=== PATIENT | male | born 1970 | race Caucasian/White ===

== ENCOUNTER 2017-01-07 11:05 | Inpatient (IN) | payer OTHER ==
[~2017-01-07] VITALS: Ht 185.4 cm; Wt 80.3 kg
[~2017-01-07 11:05] MED LIST: LANT3I SC; LISI20TA11 PO; NOVO3I SC
[2017-01-07] MEDS ORDERED: PIPER-TAZO 3.375 GM IV (PMX) 100 ML IVPB STA (11:20)
[2017-01-07] MEDS ORDERED: SODIUM CHLORIDE 0.9% 1L BAG IV* STA (11:20)
[2017-01-07] MEDS ORDERED: VANCOMYCIN 1 GM (PMX) 250 ML IVPB ONE (11:30)
--- NOTE | 2017-01-07 11:36 | ERA ---
ER Documentation Chief Complaint Date/Time DATE: 01/07/17 TIME: 11:33 Chief Complaint DIABETIC R FOOT PAIN POSSIBLE INFECTION HPI 46-year-old diabetic male who presents with an infection to his right foot. The patient states that he recently visited his etymology professor Dr. Beltran. He states that he is scheduled for surgery on January 12 however he has noted worsening wounds to the dorsum and plantar surface of the foot with drainage of malodorous material. He also describes moderate pain that is throbbing, worse with walking. He also notes that his glucose values have been elevated over the past several days. ROS All systems reviewed and are negative except as per history of present illness. Medications Home Meds Reported Medications Insulin Glargine* (Lantus*) 100 Unit/Ml Soln, 0 SC QHS, #1 VIAL SLIDING SCALE 09/20/16 Insulin Aspart* (Novolog Insulin Pen*) 100 Unit/Ml Soln, 0 SC .SLIDING SCALE AC , EA AC MEALS 09/20/16 Lisinopril* (Lisinopril*) 20 Mg Tablet, 20 MG PO DAILY, #30 TAB 02/18/16 Allergies Allergies: Coded Allergies: No Known Allergy (Unverified , 09/20/16) PMhx/Soc History of Surgery: Yes (rt foot hammertoe, B EARDRUM RECONST) Anesthesia Reaction: No Hx Neurological Disorder: No Hx Respiratory Disorders: No Hx Cardiac Disorders: No (HTN) Hx Psychiatric Problems: No Hx Miscellaneous Medical Probl: No Hx Alcohol Use: Yes (SOCIALLY) Hx Substance Use: No Hx Tobacco Use: No FmHx Family History: diabetes Physical Exam Vitals Vital Signs Date Time Temp Pulse Resp B/P Pulse Ox O2 Delivery O2 Flow Rate FiO2 01/07/17 11:08 98.0 66 18 146/66 99 Physical Exam General: Well developed, well nourished, no acute distress Head: Normocephalic, atraumatic. Eyes: Pupils equally reactive, EOM intact ENT: Moist mucous membranes Neck: Supple, no lymphadenopathy Respiratory: Lungs clear bilaterally, no distress Cardiovascular: RRR, no murmurs, rubs, or gallops Abdominal: Soft, non-tender, non-distended, no peritoneal signs : Deferred MSK: Right foot with evidence of a open draining wound of malodorous material on the dorsum and plantar surface of the foot, swelling diffusely to the foot with 2+ dorsalis pedis pulses. No temperature deficit. Negative Homans sign. No crepitus. Neurologic: Alert and oriented, moving all extremities, normal speech, no focal weakness, no cerebellar signs Skin: As documented above Psych: Normal mood Result Diagram: 01/07/17 1140 01/07/17 1140 Results 24 hrs Laboratory Tests Test 01/07/17 11:40 White Blood Count 10.910^3/ul Red Blood Count 3.1310^6/ul Hemoglobin 7.6g/dl Hematocrit 25.5% Mean Corpuscular Volume 81.5fl Mean Corpuscular Hemoglobin 24.3pg Mean Corpuscular Hemoglobin Concent 29.8g/dl Red Cell Distribution Width 15.4% Platelet Count 12502^3/UL Mean Platelet Volume 10.8fl Neutrophils % 79.0% Lymphocytes % 12.1% Monocytes % 5.9% Eosinophils % 2.3% Basophils % 0.2% Nucleated Red Blood Cells % 0.0/100WBC Neutrophils # 8.710^3/ul Lymphocytes # 1.310^3/ul Monocytes # 0.610^3/ul Eosinophils # 0.310^3/ul Basophils # 0.010^3/ul Nucleated Red Blood Cells # 0.010^3/ul Prothrombin Time 13.4Sec Prothrombin Time Ratio 1.0 INR International Normalized Ratio 1.02 Activated Partial Thromboplast Time 32.3Sec Sodium Level 139mmol/L Potassium Level 4.5mmol/L Chloride Level 107mmol/L Carbon Dioxide Level 24mmol/L Anion Gap 13 Blood Urea Nitrogen 60mg/dl Creatinine 3.66mg/dl Glucose Level 218mg/dl Lactic Acid Level 0.8mmol/L Calcium Level 8.6mg/dl Total Bilirubin 0.0mg/dl Direct Bilirubin 0.00mg/dl Indirect Bilirubin 0.0mg/dl Aspartate Amino Transf (AST/SGOT) 27IU/L Alanine Aminotransferase (ALT/SGPT) 22IU/L Alkaline Phosphatase 97IU/L C-Reactive Protein Pending Total Protein 7.2g/dl Albumin 2.5g/dl Globulin 4.70g/dl Albumin/Globulin Ratio 0.53 Current Medications Medications (Trade) Dose Ordered Sig/Layton Route PRN Reason Start Time Stop Time Status Last Admin Dose Admin Sodium Chloride 2390 ml 2,390 ml BOLUS OVER 2 HOURS STAT IV* 01/07/17 11:20 01/07/17 11:26 DC 01/07/17 12:35 Vancomycin HCl 250 ml @ 125 mls/hr ONCE ONCE IVPB 01/07/17 11:30 01/07/17 13:29 Piperacillin Sod/ Tazobactam Sod (Zosyn 3.375gm/ 100 ml (Pmx)) 100 ml @ 200 mls/hr ONCE STAT IVPB 01/07/17 11:20 01/07/17 11:49 DC 01/07/17 12:15 Ondansetron HCl (Zofran Inj) 4 mg BRIDGE ORDER PRN IV NAUSEA AND/OR VOMITING 01/07/17 13:00 01/08/17 12:59 Acetaminophen (Tylenol Tab) 650 mg ER BRIDGE PRN PO MILD PAIN/FEVER 01/07/17 13:00 01/08/17 12:59 Procedures/MDM EKG, MONITORS, & DIAGNOSTIC IMAGING: EKG: I reviewed and interpreted a 12-lead EKG. Rhythm: Normal sinus rhythm Ectopy: None Intervals: No abnormalities ST segments: No elevations or depressions T waves: No contiguous inversions Chest x-ray: I reviewed and interpreted a 1 view of the chest Mediastinum: No enlargement Cardiac silhouette: No cardiomegaly Airspace: Clear lung trujillo bilaterally without evidence of pneumothorax Bones: No evidence of fracture X-ray right foot: Radiology read IMPRESSION: 1. Gas gangrene and cellulitis involving the distal right foot with dorsal dislocation of the proximal right third phalanx. 2. Osteomyelitis involving the distal diaphysis and distal end of the right fourth metatarsal bone with regional osteoporosis adjacent to the fourth metatarsal phalangeal joint. 3. Regional osteoporosis involving the proximal end of the proximal right third phalanx and distal end of the right third metatarsal bone. 4. Osteomyelitis involving the diaphysis and proximal portion of the proximal right third phalanx. RPTAT:AAJJ LAB INTERPRETATION: No significant leukocytosis, normal lactic acid, normal sodium. CRP pending. Glucose normal. Elevated creatinine MEDICAL DECISION MAKING: The patient presents with signs and symptoms consistent with an infected diabetic foot ulcer. The patient has active drainage from the wound. No evidence of necrotizing process. However the patient is at risk for pseudomonal infection. Empiric antibiotics in the form of vancomycin and Zosyn would be reasonable. The patient will benefit from inpatient hospitalization, podiatry consultation and possible early or surgery. The patient also has elevated glucose values, investigation to rule out DKA would be reasonable. Screening for sepsis was also initiated. ER COURSE: Patient given a 30 cc/kg bolus of normal saline. Blood cultures taken prior to antibiotics. The radiologist is concerned for possible gas gangrene. However, clinically this is not consistent with a necrotizing process. The patient only has a mild white count, no fever, normal sodium, normal lactic acid. The patient's creatinine is elevated at baseline. The patient's LRINEC score is indeterminant. I was able to speak to the patient's surgeon Dr. Beltran. Reviewed the case. I added clindamycin. Given that there is an open wound I believe that this is the likely etiology of the gas. However Dr. Beltran states that he will evaluate the patient today. Currently the patient is stable for medical surgical admission. I kept the patient and/or family informed of laboratory and diagnostic imaging results throughout the emergency room course. DISPOSITION PLAN: Medical surgical admission for management of diabetic foot ulcer CONSULTATION: Accepting care team and consultations: I discussed the current laboratory data, diagnostic imaging and emergency care provided. Admitting team: Dr. Chen Admitting team indication: Insurance directed Consulting services: Material Damage Adjuster Dr. Tao Beltran was paged Departure Diagnosis: Primary Impression: Diabetic foot ulcer Qualified Code: E11.621 - Diabetic ulcer of right midfoot associated with type 2 diabetes mellitus, unspecified ulcer stage Additional Impressions: Diabetic foot infection Chronic renal insufficiency Qualified Code: N18.9 - Chronic renal insufficiency, unspecified stage Anemia Qualified Code: D64.9 - Anemia, unspecified type Condition: Stable ABIEL HERNÁNDEZ MD Jan 07, 2017 11:36
[2017-01-07 12:02] LABS: ADD SCAN DIFF NO
[2017-01-07 12:10] LABS: BASOPHILS % 0.2 % (0.0-2.0); EOSINOPHILS # 0.3 10^3/ul (0.0-0.5); EOSINOPHILS % 2.3 % (0.0-7.0); HEMATOCRIT 25.5 % (42.0-52.0); HEMOGLOBIN 7.6 g/dl (14.0-18.0); LYMPHOCYTES # 1.3 10^3/ul (0.8-2.9); LYMPHOCYTES % 12.1 % (15.0-51.0); MEAN CORPUSCULAR HEMOGLOBIN 24.3 pg (29.0-33.0); MEAN CORPUSCULAR HGB CONC 29.8 g/dl (32.0-37.0); MEAN CORPUSCULAR VOLUME 81.5 fl (82.0-101.0); MEAN PLATELET VOLUME 10.8 fl (7.4-10.4); MONOCYTE # 0.6 10^3/ul (0.3-0.9); MONOCYTES % 5.9 % (0.0-11.0); NEUTROPHIL # 8.7 10^3/ul (1.6-7.5); PLATELET COUNT 312 10^3/UL (140-415); RED BLOOD COUNT 3.13 10^6/ul (4.70-6.10); RED CELL DISTRIBUTION WIDTH 15.4 % (11.5-14.5); WHITE BLOOD COUNT 10.9 10^3/ul (4.8-10.8)
--- NOTE | 2017-01-07 12:10 | RADRPT ---
PROCEDURE: Three-view left XR Foot. CLINICAL INDICATION: Evaluate foot ulcer for osteomyelitis. TECHNIQUE: AP, lateral and oblique views of the left foot was obtained. The images were reviewed on a PACS workstation. COMPARISON: Intraoperative radiographs right second and third toes is 03/16/2016 08:01 a.m. FINDINGS: There is subcutaneous emphysema with soft tissue swelling involving the proximal right third and fo urth proximal phalanges. There is a periostitis along the lateral surface of the proximal right thir d phalanx with lucency in the proximal intramedullary portion of the bone. There is dorsal dislocati on of the proximal right third phalanx. There is an arthrodesis with fusion of the right second PIP joint space. There is a screw embedded in the distal diaphysis of the right third metatarsal bone. The distal end of the third metatarsal bone is rarefied with surrounding subcutaneous emphysema. Th ere is osteolytic destruction involving the distal diaphysis metaphysis and distal end of the fourth metacarpal bone consistent with osteomyelitis. There are degenerative changes of the right first me tatarsal phalangeal joint. The tarsal bones and ankle mortise are normal. The distal tibia and fib felicia are normal. IMPRESSION: 1. Gas gangrene and cellulitis involving the distal right foot with dorsal dislocation of the proxi mal right third phalanx. 2. Osteomyelitis involving the distal diaphysis and distal end of the right fourth metatarsal bone with regional osteoporosis adjacent to the fourth metatarsal phalangeal joint. 3. Regional osteoporosis involving the proximal end of the proximal right third phalanx and distal e nd of the right third metatarsal bone. 4. Osteomyelitis involving the diaphysis and proximal portion of the proximal right third phalanx. RPTAT:AAJJ Physician Bob Date Time Electronically viewed and signed by Physician Bob on 01/07/2017 12:10 RENATA/
--- NOTE | 2017-01-07 12:10 | RADRPT ---
PROCEDURE: XR Chest. CLINICAL INDICATION: chest pain, right foot ulcer TECHNIQUE: Single frontal view of the chest was obtained COMPARISON: 06/24/15 FINDINGS: The heart and mediastinum are within normal limits. The lungs are clear. There is no pleural effusion or pneumothorax. RPTAT: AA IMPRESSION: No acute disease. .Gabriel Montgomery MD, MD Date Time Electronically viewed and signed by .Gabriel Montgomery MD, on 01/07/2017 12:09 .S/
[2017-01-07 12:13] LABS: ALBUMIN 2.5 g/dl (3.3-4.9)
[2017-01-07 12:14] LABS: INR 1.02; POTASSIUM 4.5 mmol/L (3.5-5.1); PROTIME 13.4 Sec (12.2-14.2)
[2017-01-07 12:16] LABS: CREATININE 3.66 mg/dl (0.61-1.24)
[2017-01-07 12:17] LABS: ALBUMIN/GLOBULIN RATIO 0.53; CALCIUM 8.6 mg/dl (8.4-10.2); TOTAL PROTEIN 7.2 g/dl (6.1-8.1)
[2017-01-07 12:21] LABS: PARTIAL THROMBOPLASTIN TIME 32.3 Sec (25.0-35.0)
[2017-01-07 12:39] LABS: C-REACTIVE PROTEIN 26.8 mg/dl (0.0-0.9)
[2017-01-07] MEDS ORDERED: ONDANSETRON 4 MG INJ IV PRN ×2 (13:00→14:00)
[2017-01-07] MEDS ORDERED: CLINDAMYCIN 600 MG/D5W (PMX) 50 ML IVPB SCH (13:00)
[2017-01-07] MEDS ORDERED: ACETAMINOPHEN 325 MG TAB PO PRN ×2 (13:00→14:00)
[2017-01-07] MEDS ORDERED: CLON0.2T5 PO (13:05)
[2017-01-07] MEDS ORDERED: METO200T4 PO (13:08)
[2017-01-07 13:33] VITALS: TEMP 97.5
[2017-01-07] MEDS ORDERED: HYDROCODONE/APAP (5/325) TAB PO PRN ×2 (14:00)
[2017-01-07] MEDS ORDERED: MAGNESIUM HYDROXIDE 30ML CUP PO PRN (14:00)
[2017-01-07] MEDS ORDERED: NACL 0.9% 3 ML SYG IV SCH (14:00)
[2017-01-07] MEDS ORDERED: morphine 2 MG INJ IV PRN (14:00)
[2017-01-07] MEDS ORDERED: BISACODYL 10 MG SUPP PR PRN (14:00)
[2017-01-07] MEDS: SOD CHLORIDE 0.9% 1,000 ML IV SCH ×2 (14:00→15:41)
[2017-01-07] MEDS ORDERED: DOCUSATE SODIUM 100 MG CAP PO PRN (14:00)
[2017-01-07] MEDS ORDERED: ACETAMINOPHEN 650 MG SUPP PR PRN (14:00)
[2017-01-07 14:28] VITALS: BP 149/70; RESP 20
[2017-01-07] MEDS ORDERED: VANCOMYCIN IV PER PHARMACY XX SCH (14:30)
[2017-01-07 15:08] VITALS: Ht 185.4 cm; Wt 80.3 kg
[2017-01-07 16:03] LABS: HEMATOCRIT 21.6 % (42.0-52.0)
--- NOTE | 2017-01-07 16:10 | CONS ---
DATE OF ADMISSION: 01/07/2017 DATE OF CONSULTATION: 01/07/2017 TYPE OF CONSULTATION: Infectious disease. REASON FOR CONSULTATION: Antibiotic management. HISTORY OF PRESENT ILLNESS: Thompson Marley is a 46-year-old male with a history of diab etes, who comes in now with diabetic right foot pain and infected right foot. His marine safety officer is Dr. Beto Beltran. He is scheduled for surgery on 01/12/2017; however, he has worsening wounds of the d orsum and plantar surface of the foot, with drainage of malodorous material. He has increasing pain , which is throbbing, worse when walking. His past problems include: 1. Adult onset diabetes mellitus. 2. Hypertension. 3. Right foot hammertoe. 4. Bilateral eardrum reconstruction. 5. He is a social drinker. PAST MEDICAL HISTORY: Operations as outlined. FAMILY HISTORY: Noncontributory. SOCIAL HISTORY: He does not smoke. He drinks occasionally. He does not abuse drugs. ALLERGIES: NONE TO PENICILLIN, SULFA OR FOODS. MEDICATIONS: Per chart. REVIEW OF SYSTEMS: As per HPI. PHYSICAL EXAMINATION: GENERAL: The patient is a well-developed, well-nourished male, who is alert, responsive, in no acut e distress. VITAL SIGNS: Stable. He is afebrile. SKIN: Without generalized rash. HEENT: Within normal limits. NECK: Supple. LYMPH NODES: None palpable. CHEST: Decreased breath sounds at the bases. HEART: Without murmur or gallop. ABDOMEN: Soft, nontender, without organosplenomegaly or masses. EXTREMITIES: Without cyanosis, clubbing or edema. His right foot has an open draining wound of mal odorous material on the dorsum and plantar surface of the foot. He has diffuse swelling of the foot with 2+ dorsalis pedis pulses. RECTAL AND GENITAL EXAM: Deferred. NEUROLOGIC EVALUATION: Decreased sensation in the distal extremities. ANCILLARY LABORATORY DATA: His white count is 10.9, H and H 7.6 and 25.5, platelet count of 312,000. The patient is significantly anemic. BUN and creatinine are 60/3.66, so he has significant renal impairment as well. We are going to start him on vancomycin and Zosyn, which he has been started on. His chest x-ray is unremarkable. X-ray of the foot: Gas gangrene and cellulitis involving the distal right foot, with dorsal dislocation of the proximal right 3rd. Osteomyelitis involving the distal diaphysis and the distal end of the right 4th metatarsal bone, with regional osteoporosis adjacent to the fourth meta tarsophalangeal joint, regional osteoporosis involving the proximal end of the right third phalanx a nd distally of the right 3rd metatarsal bone. Osteomyelitis involving the diathesis and proximal po rtion of the proximal right third phalanx. So the patient has significant osteomyelitis and may und ergo amputation of these areas. He will be seen by Dr. Beltran. I will dictate my findings to the ospitalist and to Dr. Beltran. Dictated By: JONNY GRANADOS MD, JD/HILDA Conf#: [id number] DID#: [id number]
[2017-01-07 16:14] LABS: TOTAL IRON BINDING CAPACITY 184 ug/dl (241-421)
[2017-01-07 16:15] LABS: HEMOGLOBIN 6.6 g/dl (14.0-18.0)
[2017-01-07] MEDS: PIPER-TAZO 3.375 GM IV (PMX) 100 ML IVPB SCH ×2 (16:29→21:38)
[2017-01-07 16:49] LABS: IRON < 10 ug/dl (35-150)
[2017-01-07] MEDS ORDERED: VANCOMYCIN 500MG/NS (PMX) 100 ML IVPB SCH (17:00)
[2017-01-07] MEDS: INSULIN ASPART [NOVOLOG] 3 ML PEN SC SCH ×2 (17:22→21:04)
[2017-01-07] MEDS ORDERED: PIPER-TAZO 3.375 GM IV (PMX) 100 ML IVPB SCH ×2 (18:00→22:00)
[2017-01-07 20:07] VITALS: BP 138/65; RESP 20
[2017-01-07] MEDS: HEPARIN 5,000 UNIT/0.5 ML VIAL SC SCH ×2 (20:09→20:47)
[2017-01-07 20:18] LABS: IRON 11 ug/dl (35-150)
[2017-01-07 20:27] LABS: TOTAL IRON BINDING CAPACITY 200 ug/dl (241-421)
[2017-01-07] MEDS ORDERED: EPOETIN ALFA (NESRD) 3,000 UNITS/ML VIAL SC ONE (20:30)
[2017-01-07 20:38] LABS: ADD UMIC YES; URINE BILIRUBIN (Dip) NEGATIVE (NEGATIVE); URINE BLOOD (Dip) 3+ (NEGATIVE); URINE COLOR LT. YELLOW (YELLOW); URINE KETONES (Dip) NEGATIVE (NEGATIVE); URINE LEUKOCYTE ESTERASE (Dip) NEGATIVE (NEGATIVE); URINE NITRITE (Dip) NEGATIVE (NEGATIVE); URINE TOTAL PROTEIN (Dip) 4+ (NEGATIVE); URINE UROBILINOGEN (Dip) 0.2 E.U./dL (0.1-1.0)
[2017-01-07] MEDS: METOPROLOL (XL) 100 MG TAB PO SCH (20:55)
[2017-01-07] MEDS: INSULIN GLARGINE [LANtus] 3 ML PEN SC SCH (21:06)
[2017-01-07 21:09] LABS: PROTEIN URINE > 200.0 mg/dl (0.0-9.9)
[2017-01-07 21:32] LABS: SQUAMOUS EPITHELIAL CELL,UR RARE; URIC ACID CRYSTALS,URINE MANY; URINE RBCS 0-2 /HPF (0)
[2017-01-08] MEDS: SOD CHLORIDE 0.9% 1,000 ML IV SCH ×3 (01:31→23:45)
--- NOTE | 2017-01-08 05:33 | CONS ---
DATE OF ADMISSION: 01/07/2017 DATE OF CONSULTATION: 01/07/2017 TYPE OF CONSULTATION: Nephrology. REASON FOR CONSULTATION: Acute kidney injury, chronic kidney disease. REQUESTING PHYSICIAN: Dr. Valentin Chen HISTORY OF PRESENT ILLNESS: This is a 46-year-old male with a past medical history of chronic kidne y disease, stage IIIB/IV, with an estimated EGFR around 33 mL per minute per patient. 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 The patient presents to [facility] for evaluation of right foot infection. The patient was recently seen by his flight operations specialist, Dr. Beltran, who scheduled him for 01/12/2017 surger y; however, the patient noted that his right foot and toes were now having worsening wound with felton dorous drainage. As a result, he was brought into the emergency room for evaluation. Upon arrival, the patient had x-ray of the foot which showed findings of osteomyelitis involving the distal diaph ysis, gas, gangrene, and cellulitis of the distal right foot, and dorsal dislocation of the proximal third phalanx. The patient in the emergency room was started on broad spectrum antibiotics, given IV fluids, and admitted to med/surg for continued evaluation. In terms of the patient's renal history, he has underlying CKD, stage IIIB/IV, as stated above. The patient sees a primary coach wirer and stated that in September he was told that his kidney functio n was around 33%. The patient, during this last 2 to 3 months, denied any recent antibiotic use. D enied any recent contrast exposure. Denied any recent rashes, frothy urine, hemoptysis, hemetemesis , hematochezia. PAST MEDICAL HISTORY: As stated above, history of CKD stage, III/IV, history of hypertension, diabe sandra. PAST SURGICAL HISTORY: History of right foot hammertoe. FAMILY HISTORY: No family history of kidney disease, heart disease. SOCIAL HISTORY: Does not drink, smoke, or do drugs. MEDICATIONS: Have been reviewed. ALLERGIES: NO KNOWN DRUG ALLERGIES. REVIEW OF SYSTEMS: A 14-point review of systems was conducted. Pertinent positives as stated in HP I, otherwise negative. PHYSICAL EXAMINATION: VITAL SIGNS: Blood pressure is 149/70, respirations 20, pulse 68, temperature 98.7. HEENT: Head is normocephalic. NECK: Supple. HEART: Regular rate. LUNGS: Show diminished breath sounds at base. ABDOMEN: Soft, nontender to palpation without rebound or guarding. EXTREMITIES: Negative for clubbing, cyanosis. Trace edema on the left leg. Right foot has noted d ressing with malodorous smell. NEUROLOGIC: No focal deficits. DERMATOLOGIC: No rashes. MUSCULOSKELETAL: No joint effusions. MEDICATIONS: Have been reviewed. LABORATORY DATA: Shows sodium 139, potassium 4.4, chloride 107, bicarbonate 24, BUN 60, creatinine 3.66 with a hemoglobin 6.6, hematocrit 21.7, ESR 140. IMAGING: The patient's chest x-ray shows no acute disease. Right foot x-ray as stated in HPI. ASSESSMENT AND PLAN: This is a 46-year-old male who presents with 1. Nonoliguric acute kidney injury on top of chronic kidney disease, stage IIIB/IV, with a previous estimated EGFR of 33 mL per minute per patient. Etiology of current JS may be multifactorial seco ndary to sepsis, hemodynamics, or JAGUAR inhibitor effect. The possibility of acute glomerulonephritis , vasculitis, or interstitial nephritis is less likely. However, a full workup will be done. I collin l plan to order UA with microanalysis. We will evaluate the urine under microscopy. We will check urine electrolytes. We will quantify the patient's proteinuria. We will also check a renal ultraso und to rule out obstruction, although suspicion is low. We would continue to treat underlying infec tion. We would recommend discontinue vancomycin if possible as the patient has had previous vancomy leni associated nephrotoxicity. Agree with IV hydration. Would otherwise continue supportive care, renally dose all meds, and avoid nephrotoxins. 2. Severe anemia. Etiology is unclear, possibly secondary to underlying CKD. Plan is to check an iron panel, check stool for occult blood. We will give Epogen. We will also monitor H and H levels , consider blood transfusion of 2 units of PRBC. 3. Mineral bone disorder. Monitor calcium and phosphorus levels. Check a PTH level. 4. Hypertension. We will continue to monitor blood pressures closely on IV fluids. Continue metop rolol. 5. Sepsis secondary to right foot osteomyelitis. Continue current antibiotic regimen. Follow up w [facility] podiatry. 6. Diabetes. Continue Accu-Cheks, insulin sliding scale. Thank you for this interesting consultation. It will be a pleasure to follow the patient with you t hroughout the hospital course. Dictated By: MICHELLE QUINTANILLA/HILDA Conf#: [id number] DID#: [id number]
[2017-01-08] MEDS: PIPER-TAZO 3.375 GM IV (PMX) 100 ML IVPB SCH ×3 (05:55→21:05)
[2017-01-08] MEDS: PANTOPRAZOLE 40 MG INJ IV SCH (05:55)
[2017-01-08 07:54] VITALS: BP 164/80; RESP 18
[2017-01-08] MEDS: METOPROLOL (XL) 100 MG TAB PO SCH ×2 (08:14→20:08)
[2017-01-08] MEDS: HEPARIN 5,000 UNIT/0.5 ML VIAL SC SCH ×2 (08:18→20:10)
[2017-01-08] MEDS: INSULIN ASPART [NOVOLOG] 3 ML PEN SC SCH ×4 (08:18→20:17)
--- NOTE | 2017-01-08 09:00 | HP ---
DATE OF ADMISSION: 01/07/2017 CHIEF COMPLAINT: Right foot ulcer with osteomyelitis. HISTORY OF PRESENT ILLNESS: This is a 46-year-old male with history of right foot ulcer for 8 month s' duration as well as diabetes, hypertension and chronic kidney disease who came to [facility] [place] after being sent by his refractory grinder operator due to worsening ulceration on his right foot with malodorous smell and drainage. According to the patient, he has had his right foot ulcer wound for 8 months. He was scheduled initially for surgical intervention on his right foot on 01/12/2017. He was seen by refractory grinder operator as an outpatient, after evaluation it was deemed that he needed to go to the hospital for further management. Upon further examination, he did have a foot x-ray on the right s melida that did show him to have gas gangrene and cellulitis involving the distal right foot with dorsa l dislocation of the proximal right third phalanx. There was an osteomyelitis involving the distal diaphysis and distal end of the right fourth metatarsal bone with regional osteoporosis adjacent to the fourth metatarsophalangeal joint. Also seen was regional osteoporosis involving the right proxi mal end of the third phalanx and distal end of the third right metatarsal bone and osteomyelitis inv olving the diaphysis and proximal portion of the proximal right end third phalanx. The patient also on laboratory work was seen with a slight leukocytosis with white count of 10.9. He was seen to be anemic with hemoglobin of 7.6, hematocrit of 25.5. He was also seen with some renal insufficiency with BUN of 16 and creatinine of 3.66. It is unknown whether patient does have some iron deficiency , but we will follow up on his level. Currently, the patient remains febrile. He denies any pain o n the right lower extremity. It is seen with malodorous smell and open ulcerative wound on both upp er portion of the third phalanx and on the bottom portion of the foot. We will evaluate him for the aforementioned issues. MEDICAL AND SURGICAL HISTORY 1. Reported chronic kidney disease stage III to stage IV. 2. Hypertension. 3. Diabetes. 4. History of right foot ulcer, diabetic for 8 months' duration. SOCIAL HISTORY: The patient denies any cigarette smoking, alcohol consumption or illicit drug use. ALLERGIES: NO KNOWN ALLERGIES. FAMILY HISTORY: Noncontributory. REVIEW OF SYSTEMS: A 12-point review of systems obtained and entirely negative except that mentione d in the history of present illness. HOME MEDICATIONS: 1. Clonidine 0.2 mg p.o. b.i.d. as needed for high blood pressure. 2. Toprol-XL 200 mg p.o. b.i.d. 3. Insulin NovoLog sliding scale (dose unknown). 4. Lantus subcutaneous at bedtime (dose unknown). PHYSICAL EXAMINATION VITAL SIGNS: Temperature is 97.5, pulse 67, respiratory rate 18, blood pressure 144/66 and pulse ox imetry is 99% on room air. GENERAL: This is a 46-year-old male who appears stated age, in no apparent distress noted at this t noe. EYES: Pupils equal, round and reactive to light. Anicteric sclerae. NECK: Supple, nontender, no JVD. CARDIOVASCULAR: S1, S2 auscultated, regular rate. PULMONARY: Clear to auscultation bilaterally. No wheezing or rhonchi. ABDOMEN: Soft, nontender, nondistended. EXTREMITIES: There is no obvious edema bilateral lower extremities. SKIN: There is seen ulcerative wound on right lower extremity with malodorous smell and serosanguin eous drainage. LABORATORY DATA: Sodium 139, potassium 4.5, BUN is 60, creatinine 3.66. WBC is 10.9, hemoglobin 7. 6, hematocrit 25.5, and platelets are 312. IMAGIN. Chest x-ray done on 01/07/2017 did show no acute disease. 2. Foot x-ray on the right side done on 01/07/2070 did show some evidence of gas gangrene and cellu litis involving the distal right foot with dorsal dislocation of the proximal right third phalanx an d osteomyelitis involving the distal diaphysis and distal end of the right fourth and metatarsal bon e with regional osteoporosis adjacent to the fourth metatarsophalangeal joint, as well as regional o steoporosis involving the proximal end of the proximal right third phalanx and distal end of the rig ht third metatarsal bone. Also seen osteomyelitis involving the diaphysis and proximal portion of t he proximal right third phalanx. IMPRESSION AND PLAN: 1. Right foot osteomyelitis with wound. Drug Safety Specialist consulted. Tentative plan for surgical interve ntion. We will follow up. Continue with analgesics for now. We will get ID consult for antibiotic regimen. 2. History of chronic kidney disease. The patient noted with renal insufficiency. We will get nep hrologist to follow. Monitor renal panel. Avoid nephrotoxic medications if possible. 3. Diabetes. Follow up on A1c. We will place patient on insulin regimen for now. We will adjust as needed. 4. History of essential hypertension. Will continue on antihypertensives as needed. ADMISSION PROCESS TIME: 40 minutes. Discussed plan of care with Dr. Chen. Dictated By: KRYSTA SERRATO [employer] SPECIAL AGENT for ELANA CHEN MD RR/NTS Conf#: [id number] DID#: [id number]
--- NOTE | 2017-01-08 09:13 | PN ---
DATE: 01/08/2017 SUBJECTIVE: The patient is stable. No acute events overnight. No fevers, chills, nausea, vomiting . OBJECTIVE: VITAL SIGNS: Blood pressure 164/80, respirations 18, pulse 67, temperature 98.8. HEENT: Head is normocephalic. NECK: Supple. HEART: Regular rate. LUNGS: Show diminished breath sounds at base. ABDOMEN: Soft, nontender to palpation. No rebound or guarding. EXTREMITIES: Negative for clubbing, cyanosis, no edema. DERMATOLOGIC: No rashes. MUSCULOSKELETAL: No joint effusions. NEUROLOGIC: No change in exam. MEDICATIONS: The patient's medications have been reviewed. LABORATORY DATA: From this morning is currently pending. The patient's urinalysis shows proteinuri a with greater than 2 grams per gram of creatinine. ASSESSMENT AND PLAN: 1. Nonoliguric acute kidney injury on top of chronic kidney disease, stage IIIB/IV, with previous e stimated EGFR of 33 mL per minute per patient. Etiology of current acute kidney injury is likely mu ltifactorial secondary to sepsis, hemodynamics, possible JAGUAR inhibitor effect. The patient's urinal ysis shows no significant hematuria or pyuria. The patient does, however, have what appears to be n ephrotic range proteinuria likely secondary to diabetic nephropathy. At this point, would continue current treatment plan, supportive care, renally dose all medications. We will speak with Infectiou s Disease about discontinuing vancomycin in the setting of chronic kidney disease. There is no imme diate need for renal replacement therapy at this time. Monitor closely. 2. Severe anemia, likely secondary to chronic kidney disease. The patient is status post Epogen. We will follow up the CBC panel today and would consider blood transfusion. 3. Mineral bone disorder. Continue to monitor calcium and phosphorus levels. No need for phosphat e binders. 4. Hypertension. Continue current blood pressure regimen. 5. Diabetes. Continue Accu-Cheks and sliding scale. 6. Sepsis secondary to right foot osteomyelitis. Continue current antibiotic regimen. Follow up c ullucy. Follow up with Infectious Disease. Dictated By: MICHELLE QUINTANILLA/NTS Conf#: [id number] DID#: [id number]
[2017-01-08 09:26] LABS: ADD SCAN DIFF NO
[2017-01-08 09:30] LABS: BASOPHILS % 0.3 % (0.0-2.0); EOSINOPHILS # 0.4 10^3/ul (0.0-0.5); HEMATOCRIT 29.4 % (42.0-52.0); HEMOGLOBIN 9.2 g/dl (14.0-18.0); LYMPHOCYTES # 1.3 10^3/ul (0.8-2.9); LYMPHOCYTES % 14.6 % (15.0-51.0); MEAN CORPUSCULAR HEMOGLOBIN 26.1 pg (29.0-33.0); MEAN CORPUSCULAR HGB CONC 31.3 g/dl (32.0-37.0); MEAN CORPUSCULAR VOLUME 83.5 fl (82.0-101.0); MONOCYTE # 0.6 10^3/ul (0.3-0.9); MONOCYTES % 6.8 % (0.0-11.0); NEUTROPHIL # 6.4 10^3/ul (1.6-7.5); PLATELET COUNT 291 10^3/UL (140-415); RED BLOOD COUNT 3.52 10^6/ul (4.70-6.10); RED CELL DISTRIBUTION WIDTH 15.2 % (11.5-14.5); WHITE BLOOD COUNT 8.7 10^3/ul (4.8-10.8)
[2017-01-08 10:02] LABS: ALBUMIN 2.4 g/dl (3.3-4.9)
--- NOTE | 2017-01-08 10:02 | CONS ---
Date/Time of Note Date/Time of Note DATE: 01/08/17 TIME: 09:52 Assessment/Plan Assessment/Plan Problems: (1) Open wound of right foot with complication (2) Diabetic foot infection Status: Acute (3) Diabetes mellitus with neurological manifestations, uncontrolled Status: Acute (4) Chronic renal insufficiency Status: Acute Qualifiers: Qualified Code: N18.9 - Chronic renal insufficiency, unspecified stage Additional Assessment/Plan Today I did bedside debridement and irrigation of the wound to bleeding tissue. Patient is going to have an MRI of the right foot today. He is on 3 antibiotics. His right third toe is dusky. Patient will be reevaluated after the MRI. He is going to require surgical management. I am not sure exactly which structures are involved at this point source infection is concerned. He does have previous hardware in place which complicates the situation. He is at high risk for limb loss. Patient will be followed in-house. Thank you very much for the consultation. Consultation Date/Type/Reason Admit Date/Time Jan 07, 2017 at 12:34 Date of Consultation: Jan 08, 2017 Type of Consultation: Foot and ankle surgery Reason for Consultation Evaluation of severe infection of the right foot Hx of Present Illness Thank you very much for involving me in the care of this patient. As you very well know this is a 46-year-old male patient with history of right foot ulceration for over 8 months who has been treated at the [facility]. He was scheduled for surgical management of his wound and his condition progressively got worse. The surgery was pending insurance approval and it took longer than expected. Patient has history of diabetes mellitus, hypertension, chronic kidney disease. Patient apparently developed significant amount of malodor and drainage and decided to come to the hospital. He was scheduled initially for surgery on January 12, 2017. Patient was found to have gas on x-rays. I was consulted for evaluation and treatment. Constitutional: no complaints Respiratory: no complaints Cardiovascular: no complaints Gastrointestinal: no complaints Genitourinary: no complaints Past Medical History As per history of present illness. Past Surgical History As per history of present illness. Social History As per history of present illness. Smoking Status: Never smoker Exam/Review of Systems Vital Signs Vitals Vital Signs Date Time Temp Pulse Resp B/P Pulse Ox O2 Delivery O2 Flow Rate FiO2 01/08/17 07:54 98.8 67 18 164/80 98 01/07/17 13:33 Room Air Intake and Output 01/07/17 01/07/17 01/08/17 15:00 23:00 07:00 Intake Total 1300 ml 560 ml Balance 1300 ml 560 ml Exam Patient is laying supine in bed. Dressing was removed from the right foot. There is foul odor present. Open wound dorsal right foot at the third metatarsophalangeal joint area. There is grayish yellow drainage noted. There is necrotic tissue present. There is a second wound present on the plantar aspect of the right foot corresponding to the same site as the dorsal wound. Again there is nieves necrotic tissue noted. There is no streaking and no erythema noted. Third toe is dusky distally. There is overall edema of the right lower extremity. There is no tenderness to examination palpation. Upon squeezing foot there is some purulent drainage that is pouring out. There is significant foul odor present. Dorsalis pedis and posterior tibial pulses weak. No open wound noted on the left foot. Sensation is decreased to sharp dull vibratory and temperature stimuli. X-ray was reviewed which shows gas in the third metatarsophalangeal joint. There is a screw present in the neck of the third metatarsal and an implant present in the second toe. Labs reviewed. Results Result Diagram: 01/08/17 0916 01/07/17 1140 Results 24 hrs Laboratory Tests Test 01/07/17 11:40 01/07/17 13:30 01/07/17 14:48 01/07/17 14:55 White Blood Count 10.9 #H Red Blood Count 3.13 #L Hemoglobin 7.6 L Hematocrit 25.5 L Mean Corpuscular Volume 81.5 L Mean Corpuscular Hemoglobin 24.3 L Mean Corpuscular Hemoglobin Concent 29.8 L Red Cell Distribution Width 15.4 H Platelet Count 312 Mean Platelet Volume 10.8 #H Neutrophils % 79.0 H Lymphocytes % 12.1 L Monocytes % 5.9 Eosinophils % 2.3 Basophils % 0.2 Nucleated Red Blood Cells % 0.0 Neutrophils # 8.7 H Lymphocytes # 1.3 Monocytes # 0.6 Eosinophils # 0.3 Basophils # 0.0 Nucleated Red Blood Cells # 0.0 Erythrocyte Sedimentation Rate 140.0 H Prothrombin Time 13.4 Prothrombin Time Ratio 1.0 INR International Normalized Ratio 1.02 Activated Partial Thromboplast Time 32.3 Sodium Level 139 Potassium Level 4.5 Chloride Level 107 Carbon Dioxide Level 24 Anion Gap 13 Blood Urea Nitrogen 60 H Creatinine 3.66 H Glucose Level 218 Lactic Acid Level 0.8 0.9 0.8 Calcium Level 8.6 Iron Level 11 L < 10 L Total Iron Binding Capacity 200 L 184 L Percent Iron Saturation 6 L Total Bilirubin 0.0 L Direct Bilirubin 0.00 Indirect Bilirubin 0.0 Aspartate Amino Transf (AST/SGOT) 27 Alanine Aminotransferase (ALT/SGPT) 22 Alkaline Phosphatase 97 C-Reactive Protein 26.8 H Total Protein 7.2 Albumin 2.5 L Globulin 4.70 H Albumin/Globulin Ratio 0.53 Bedside Glucose 186 Test 01/07/17 15:55 01/07/17 17:00 01/07/17 17:11 01/07/17 20:00 Hemoglobin 6.6 *L Hematocrit 21.6 L Ferritin 233.0 Urine Color LT. YELLOW Urine Clarity CLOUDY H Urine pH 5.5 Urine Specific [place] 1.025 Urine Ketones NEGATIVE Urine Nitrite NEGATIVE Urine Bilirubin NEGATIVE Urine Urobilinogen 0.2 E.U./dL Urine Leukocyte Esterase NEGATIVE Urine Microscopic RBC 0-2 Urine Microscopic WBC NONE SEEN Urine Squamous Epithelial Cells RARE Urine Transitional Epithelial Cells Urine Uric Acid Crystals MANY Urine Hemoglobin 3+ H Urine Random Creatinine 86.68 Urine Random Sodium 48 Urine Glucose 0.25% H Urine Total Protein > 200.0 H Bedside Glucose 164 Stool Occult Blood NEGATIVE Test 01/07/17 20:03 01/08/17 08:03 01/08/17 09:16 Bedside Glucose 250 H 169 White Blood Count 8.7 # Red Blood Count 3.52 L Hemoglobin 9.2 #L Hematocrit 29.4 #L Mean Corpuscular Volume 83.5 Mean Corpuscular Hemoglobin 26.1 L Mean Corpuscular Hemoglobin Concent 31.3 L Red Cell Distribution Width 15.2 H Platelet Count 291 Mean Platelet Volume 10.0 Neutrophils % 74.0 Lymphocytes % 14.6 L Monocytes % 6.8 Eosinophils % 4.0 Basophils % 0.3 Nucleated Red Blood Cells % 0.0 Neutrophils # 6.4 Lymphocytes # 1.3 Monocytes # 0.6 Eosinophils # 0.4 Basophils # 0.0 Nucleated Red Blood Cells # 0.0 Medications Medications Current Medications Clonidine (Catapres) 0.1 mg Q4H PRN PO sbp>160; Start 01/07/17 at 14:00 Metoprolol Succinate 200 mg 200 mg BID PO Last administered on 01/08/17 08:14; Admin Dose 200 MG; Start 01/07/17 at 21:00 Sodium Chloride (NS) 1,000 ml @ 80 mls/hr [id number] IV Last administered on 15:41; Admin Dose 80 MLS/HR; Start 01/07/17 at 14:00 Ondansetron HCl (Zofran Inj) 4 mg Q6H PRN IV NAUSEA AND/OR VOMITING; Start 01/07 at 14:00 Acetaminophen (Tylenol Tab) 650 mg Q6H PRN PO PAIN LEVEL 1-3 OR FEVER; Start at 14:00 Acetaminophen (Tylenol Supp) [address] PAIN LEVEL 1-3 OR FEVER; Start 01/07/17 at 14:00 Acetaminophen/ Hydrocodone Bitart ([place] (5/325)) 1 tab Q6H PRN PO MODERATE PAIN LEVEL 4-6; Start 01/07/17 at 14:00 Acetaminophen/ Hydrocodone Bitart ([place] (5/325)) 2 tab Q6H PRN PO SEVERE PAIN LEVEL 7-10; Start 01/07/17 at 14:00 Morphine Sulfate (morphine) 2 mg Q4H PRN IV SEVERE PAIN LEVEL 7-10; Start at 14:00 Docusate Sodium (Colace) 100 mg Q12H PRN PO CONSTIPATION; Start 01/07/17 at 14: 00 Magnesium Hydroxide (Milk Of Mag) 30 ml DAILY PRN PO CONSTIPATION; Start at 14:00 Bisacodyl (Dulcolax Supp) [address] CONSTIPATION; Start 01/07/17 at 14: 00 Pantoprazole (Protonix Iv) 40 mg DAILY@06 IV Last administered on 01/08/17 05: 55; Admin Dose 40 MG; Start 01/08/17 at 06:00 Heparin Sodium (Porcine) (Heparin (5000 Units/0.5 ml)) 5,000 unit Q12 SC Last administered on 01/08/17 08:18; Admin Dose 5,000 UNIT; Start 01/07/17 at 21:00 Insulin Glargine 10 unit 10 unit DAILY@20 SC Last administered on 01/07/17 21: 06; Admin Dose 10 UNIT; Start 01/07/17 at 20:00 Piperacillin Sod/ Tazobactam Sod 100 ml @ 200 mls/hr Q8 IVPB Last administered on 01/08/17 05:55; Admin Dose 200 MLS/HR; Start 01/07/17 at 16:30 Ferric Sodium Gluconate Complex/ Sodium Chloride (Ferrlecit/NS) 110 ml @ 110 mls/hr Q24H IVPB ; Start 01/08/17 at 09:00; Stop 01/12/17 at 09:59 CHINMAY ANNE DPM Jan 08, 2017 10:01
[2017-01-08 10:03] LABS: POTASSIUM 4.4 mmol/L (3.5-5.1)
[2017-01-08 10:05] LABS: ALBUMIN/GLOBULIN RATIO 0.58; BILIRUBIN,INDIRECT 0.2 mg/dl (0-1.1); BILIRUBIN,TOTAL 0.2 mg/dl (0.2-1.3); CREATININE 3.32 mg/dl (0.61-1.24); TOTAL PROTEIN 6.5 g/dl (6.1-8.1)
[2017-01-08 10:06] LABS: CALCIUM 7.8 mg/dl (8.4-10.2); CHOL/HDL RATIO 5.8 RATIO; MAGNESIUM 2.4 mg/dl (1.7-2.5); PHOSPHORUS 4.3 mg/dl (2.5-4.9)
[2017-01-08 10:23] LABS: T3 UPTAKE 53.3 % (23.5-40.5)
[2017-01-08 10:37] LABS: THYROID STIMULATING HORMONE 2.41 MIU/L (0.465-4.680)
[2017-01-08] MEDS: SOD FERRIC GLUC COMPLX 125 MG in SOD CHLORIDE 0.9% 100 ML IVPB SCH (11:09)
--- NOTE | 2017-01-08 11:20 | PN ---
Date/Time of Note Date/Time of Note DATE: 01/08/17 TIME: 11:16 Assessment/Plan VTE Prophylaxis VTE Prophylaxis Intervention: SCD's Lines/Catheters IV Catheter Type (from Nrs): Peripheral IV Assessment/Plan Chief Complaint/Hosp Course Assessment and plan 1. Right osteomyelitis with wound. Alternative Dispute Resolution Mediator is following. Patient is status post debridement of wound (January 08, 2017). Continue with wound care. Continue on antibiotics. Follow-up MRI of right foot. 2. History of CKD. Nephrology is following. Medications to be renally dosed. Monitor renal panel 3. Diabetes. Continue on insulin regimen. Awaiting A1c result 4. Anemia. Patient with iron deficiency. Status post PRBC with good response. Monitor for now. Provide with blood products as needed 5. Essential hypertension. Will continue on antihypertensives as needed Disposition and plan: Follow-up on MRI right foot. Continue antibiotics. Follow-up with podiatry for further possible intervention. Discussed plan of care with Dr. Chen Problems: Subjective 24 Hr Interval Summary Free Text/Dictation No reports of pain at this time. Still noted with malodorous right foot wound Exam/Review of Systems Vital Signs Vitals Vital Signs Date Time Temp Pulse Resp B/P Pulse Ox O2 Delivery O2 Flow Rate FiO2 01/08/17 07:54 98.8 67 18 164/80 98 01/07/17 13:33 Room Air Intake and Output 01/07/17 01/07/17 01/08/17 15:00 23:00 07:00 Intake Total 1300 ml 560 ml Balance 1300 ml 560 ml Exam General: No apparent distress noted at this time Eyes: Equal round. Neck: Supple nontender, no JVD Cardiac: S1-S2 auscultated Pulmonary: No wheezing or rhonchi GI: Soft nontender nondistended Extremities: Minimal edema right lower extremity Skin: Noted with malodorous ulcerative wound on right lower extremity Neurologic: AL O 4 Results Result Diagram: 01/08/17 0916 01/08/17 0905 Results 24 hrs Laboratory Tests Test 01/07/17 11:40 01/07/17 13:30 01/07/17 14:48 01/07/17 14:55 White Blood Count 10.9 #H Red Blood Count 3.13 #L Hemoglobin 7.6 L Hematocrit 25.5 L Mean Corpuscular Volume 81.5 L Mean Corpuscular Hemoglobin 24.3 L Mean Corpuscular Hemoglobin Concent 29.8 L Red Cell Distribution Width 15.4 H Platelet Count 312 Mean Platelet Volume 10.8 #H Neutrophils % 79.0 H Lymphocytes % 12.1 L Monocytes % 5.9 Eosinophils % 2.3 Basophils % 0.2 Nucleated Red Blood Cells % 0.0 Neutrophils # 8.7 H Lymphocytes # 1.3 Monocytes # 0.6 Eosinophils # 0.3 Basophils # 0.0 Nucleated Red Blood Cells # 0.0 Erythrocyte Sedimentation Rate 140.0 H Prothrombin Time 13.4 Prothrombin Time Ratio 1.0 INR International Normalized Ratio 1.02 Activated Partial Thromboplast Time 32.3 Sodium Level 139 Potassium Level 4.5 Chloride Level 107 Carbon Dioxide Level 24 Anion Gap 13 Blood Urea Nitrogen 60 H Creatinine 3.66 H Glucose Level 218 Lactic Acid Level 0.8 0.9 0.8 Calcium Level 8.6 Iron Level 11 L < 10 L Total Iron Binding Capacity 200 L 184 L Percent Iron Saturation 6 L Total Bilirubin 0.0 L Direct Bilirubin 0.00 Indirect Bilirubin 0.0 Aspartate Amino Transf (AST/SGOT) 27 Alanine Aminotransferase (ALT/SGPT) 22 Alkaline Phosphatase 97 C-Reactive Protein 26.8 H Total Protein 7.2 Albumin 2.5 L Globulin 4.70 H Albumin/Globulin Ratio 0.53 Bedside Glucose 186 Test 01/07/17 15:55 01/07/17 17:00 01/07/17 17:11 01/07/17 20:00 Hemoglobin 6.6 *L Hematocrit 21.6 L Ferritin 233.0 Urine Color LT. YELLOW Urine Clarity CLOUDY H Urine pH 5.5 Urine Specific [place] 1.025 Urine Ketones NEGATIVE Urine Nitrite NEGATIVE Urine Bilirubin NEGATIVE Urine Urobilinogen 0.2 E.U./dL Urine Leukocyte Esterase NEGATIVE Urine Microscopic RBC 0-2 Urine Microscopic WBC NONE SEEN Urine Squamous Epithelial Cells RARE Urine Transitional Epithelial Cells Urine Uric Acid Crystals MANY Urine Hemoglobin 3+ H Urine Random Creatinine 86.68 Urine Random Sodium 48 Urine Glucose 0.25% H Urine Total Protein > 200.0 H Bedside Glucose 164 Stool Occult Blood NEGATIVE Test 01/07/17 20:03 01/08/17 08:03 01/08/17 09:05 01/08/17 09:16 Bedside Glucose 250 H 169 Sodium Level 137 Potassium Level 4.4 Chloride Level 112 H Carbon Dioxide Level 23 Anion Gap 6 L Blood Urea Nitrogen 45 #H Creatinine 3.32 H Glucose Level 205 Calcium Level 7.8 L Phosphorus Level 4.3 Magnesium Level 2.4 Total Bilirubin 0.2 Direct Bilirubin 0.00 Indirect Bilirubin 0.2 Aspartate Amino Transf (AST/SGOT) 24 Alanine Aminotransferase (ALT/SGPT) 27 Alkaline Phosphatase 91 Total Protein 6.5 Albumin 2.4 L Globulin 4.10 H Albumin/Globulin Ratio 0.58 Triglycerides Level 138 Cholesterol Level 123 LDL Cholesterol, Calculated 74 HDL Cholesterol 21 L Cholesterol/HDL Ratio 5.8 Thyroid Stimulating Hormone (TSH) 2.410 Free Thyroxine Index 3.04 Thyroxine (T4) 5.7 Triiodothyronine (T3) Uptake 53.3 H White Blood Count 8.7 # Red Blood Count 3.52 L Hemoglobin 9.2 #L Hematocrit 29.4 #L Mean Corpuscular Volume 83.5 Mean Corpuscular Hemoglobin 26.1 L Mean Corpuscular Hemoglobin Concent 31.3 L Red Cell Distribution Width 15.2 H Platelet Count 291 Mean Platelet Volume 10.0 Neutrophils % 74.0 Lymphocytes % 14.6 L Monocytes % 6.8 Eosinophils % 4.0 Basophils % 0.3 Nucleated Red Blood Cells % 0.0 Neutrophils # 6.4 Lymphocytes # 1.3 Monocytes # 0.6 Eosinophils # 0.4 Basophils # 0.0 Nucleated Red Blood Cells # 0.0 Medications Medications Current Medications Clonidine (Catapres) 0.1 mg Q4H PRN PO sbp>160; Start 01/07/17 at 14:00 Metoprolol Succinate 200 mg 200 mg BID PO Last administered on 01/08/17 08:14; Admin Dose 200 MG; Start 01/07/17 at 21:00 Sodium Chloride (NS) 1,000 ml @ 80 mls/hr [id number] IV Last administered on 15:41; Admin Dose 80 MLS/HR; Start 01/07/17 at 14:00 Ondansetron HCl (Zofran Inj) 4 mg Q6H PRN IV NAUSEA AND/OR VOMITING; Start 01/07 at 14:00 Acetaminophen (Tylenol Tab) 650 mg Q6H PRN PO PAIN LEVEL 1-3 OR FEVER; Start at 14:00 Acetaminophen (Tylenol Supp) 650 mg Q6H PRN [place] PAIN LEVEL 1-3 OR FEVER; Start 01/07/17 at 14:00 Acetaminophen/ Hydrocodone Bitart ([place] (5/325)) 1 tab Q6H PRN PO MODERATE PAIN LEVEL 4-6; Start 01/07/17 at 14:00 Acetaminophen/ Hydrocodone Bitart ([place] (5/325)) 2 tab Q6H PRN PO SEVERE PAIN LEVEL 7-10; Start 01/07/17 at 14:00 Morphine Sulfate (morphine) 2 mg Q4H PRN IV SEVERE PAIN LEVEL 7-10; Start at 14:00 Docusate Sodium (Colace) 100 mg Q12H PRN PO CONSTIPATION; Start 01/07/17 at 14: 00 Magnesium Hydroxide (Milk Of Mag) 30 ml DAILY PRN PO CONSTIPATION; Start at 14:00 Bisacodyl (Dulcolax Supp) 10 mg DAILY PRN [place] CONSTIPATION; Start 01/07/17 at 14: 00 Pantoprazole (Protonix Iv) 40 mg DAILY@06 IV Last administered on 01/08/17 05: 55; Admin Dose 40 MG; Start 01/08/17 at 06:00 Heparin Sodium (Porcine) (Heparin (5000 Units/0.5 ml)) 5,000 unit Q12 SC Last administered on 01/08/17 08:18; Admin Dose 5,000 UNIT; Start 01/07/17 at 21:00 Insulin Glargine 10 unit 10 unit DAILY@20 SC Last administered on 01/07/17 21: 06; Admin Dose 10 UNIT; Start 01/07/17 at 20:00 Piperacillin Sod/ Tazobactam Sod 100 ml @ 200 mls/hr Q8 IVPB Last administered on 01/08/17 05:55; Admin Dose 200 MLS/HR; Start 01/07/17 at 16:30 Ferric Sodium Gluconate Complex/ Sodium Chloride (Ferrlecit/NS) 110 ml @ 110 mls/hr Q24H IVPB Last administered on 01/08/17 11:09; Admin Dose 110 MLS/HR; Start 01/08/17 at 09:00; Stop 01/12/17 at 09:59 KRYSTA SERRATO Jan 08, 2017 11:20
[2017-01-08] MEDS ORDERED: DAPTOMYCIN 480 MG in SOD CHLORIDE 0.9% 100 ML IVPB SCH (14:00)
--- NOTE | 2017-01-08 16:03 | RADRPT ---
PROCEDURE: MRI OF THE RIGHT FOOT CLINICAL INDICATION: Right foot pain and swelling, concern for osteomyelitis at third metatarsal TECHNIQUE: Multiple MRI images were obtained utilizing multiple sequences in multiple planes. Image s were interpreted on a high-resolution PACS system. COMPARISON: Radiographs of the right foot January 07, 2017 and MRI of the right foot dated March 24 015 FINDINGS: There is extensive soft tissue swelling and soft tissue gas centered at the third metatarsophalangea l joint with adjacent plantar and dorsal skin defects, compatible with a necrotizing infection. The re is dorsal dislocation at the second and third metatarsophalangeal joints. There is osteomyelitis involving the second metatarsal head and base of the second proximal phalanx, the third metatarsal head and base of the third proximal phalanx, and the fourth metatarsal head and base of the fourth p roximal phalanx along with some chronic remodelling of the fourth metatarsal head. There is a screw in the third metatarsal head and a metallic device and the second proximal phalanx. There is extensive forefoot soft tissue swelling and phlegmonous changes without discrete drainabl e fluid collection identified though there is no IV contrast on this study. There is intrinsic foot muscle edema and atrophy. There is no evidence of osteomyelitis of the firs t or the fifth digits or metatarsals. There is osseous fusion across the first interphalangeal join t which appears chronic. IMPRESSION: 1. Very extensive forefoot soft tissue swelling, soft tissue ulcerations, and gangrenous changes wit h soft tissue gas centered at the third metatarsophalangeal joint as above. 2. Dorsal dislocation at the second and third metatarsophalangeal joints with osteomyelitis of the s econd and third metatarsal heads and proximal phalanges. Osteomyelitis at the fourth metatarsal hea d and fourth proximal phalanx is also noted. 3. Nonspecific foot muscle edema may reflect diabetic microangiopathy versus an infectious myositis. RPTAT: UU .Ton Uriostegui MD, Date Time Electronically viewed and signed by .Ton Uriostegui MD, on 01/08/2017 16:02 .K/
--- NOTE | 2017-01-08 19:29 | PN ---
DATE: 01/08/2017 SUBJECTIVE: No acute changes. The patient is alert, lying comfortably in bed. Denies pain, looks comfortable, no fevers. LABORATORY DATA: WBC today 4.7, H and H 9.7 and 29.4, platelets 291, neutrophils 74, no bands. BUN 45, creatinine 3.32. MICROBIOLOGY: Blood cultures negative. Urine culture pending. DIAGNOSTICS: MRI of the foot revealed osteomyelitis of the second and third metatarsal heads and pr oximal phalanges as well as forced metatarsal head on forced proximal phalanx. ANTIMICROBIALS: The patient is on daptomycin and Zosyn, status post vancomycin. PHYSICAL EXAMINATION: GENERAL: Well-nourished, well-developed, middle-aged man who is alert, in no distress. HEENT: Head atraumatic, normocephalic. Sclerae anicteric. Buccal mucosa pink. NECK: Supple. CHEST: Rise symmetrical. Breath sounds clear. HEART: S1, S2. ABDOMEN: Soft. Bowel tones present. EXTREMITIES: With right foot dressing intact. ASSESSMENT: 1. Right foot cellulitis with osteomyelitis, status post incision and drainage. 2. Acute kidney injury on top of chronic kidney disease. 3. Severe anemia, status post transfusion. 4. Diabetes with diabetic neuropathy. 5. Systemic inflammatory response syndrome. PLAN: The patient remains stable. Continue present care, antibiotics. Follow wound cultures, foll ow recommendations of specialists. Dictated By: JESUS PAYAN INTERNATIONAL MARKETING SPECIALIST for JONNY GRANADOS MD NI/NTS Conf#: [id number] DID#: [id number] CC: ELANA MARK MD;*EndCC*
[2017-01-08 20:00] VITALS: BP 169/72; RESP 20
[2017-01-08] MEDS: INSULIN GLARGINE [LANtus] 3 ML PEN SC SCH (20:17)
[2017-01-09] MEDS: PANTOPRAZOLE 40 MG INJ IV SCH (05:49)
[2017-01-09] MEDS: PIPER-TAZO 3.375 GM IV (PMX) 100 ML IVPB SCH (05:49)
[2017-01-09 06:03] LABS: ADD SCAN DIFF NO
[2017-01-09 06:06] LABS: BASOPHILS % 0.5 % (0.0-2.0); EOSINOPHILS # 0.5 10^3/ul (0.0-0.5); EOSINOPHILS % 5.9 % (0.0-7.0); HEMATOCRIT 25.5 % (42.0-52.0); LYMPHOCYTES # 1.8 10^3/ul (0.8-2.9); LYMPHOCYTES % 22.9 % (15.0-51.0); MEAN CORPUSCULAR HEMOGLOBIN 26.1 pg (29.0-33.0); MEAN CORPUSCULAR HGB CONC 31.4 g/dl (32.0-37.0); MEAN CORPUSCULAR VOLUME 83.3 fl (82.0-101.0); MEAN PLATELET VOLUME 10.1 fl (7.4-10.4); MONOCYTE # 0.7 10^3/ul (0.3-0.9); MONOCYTES % 8.6 % (0.0-11.0); NEUTROPHIL # 4.9 10^3/ul (1.6-7.5); NEUTROPHILS % 61.8 % (39.0-77.0); PLATELET COUNT 257 10^3/UL (140-415); RED BLOOD COUNT 3.06 10^6/ul (4.70-6.10); RED CELL DISTRIBUTION WIDTH 15.4 % (11.5-14.5); WHITE BLOOD COUNT 7.9 10^3/ul (4.8-10.8)
[2017-01-09 06:31] LABS: POTASSIUM 4.2 mmol/L (3.5-5.1)
[2017-01-09 06:34] LABS: CREATININE 3.13 mg/dl (0.61-1.24)
[2017-01-09 06:35] LABS: CALCIUM 7.5 mg/dl (8.4-10.2); MAGNESIUM 2.2 mg/dl (1.7-2.5)
[2017-01-09] MEDS ORDERED: DEXTROSE 50% 50 ML SYRINGE IV PRN ×2 (07:00)
[2017-01-09] MEDS ORDERED: GLUCOSE GEL 15 GRAM TUBE PO PRN ×2 (07:00)
[2017-01-09] MEDS ORDERED: GLUCAGON 1 MG INJ IM PRN (07:00)
[2017-01-09] MEDS ORDERED: GLUCOSE GEL 15 GRAM TUBE BUCCAL PRN (07:00)
[2017-01-09 07:43] VITALS: BP 116/59; RESP 18
[2017-01-09 07:56] VITALS: BP 172/74; RESP 20
[2017-01-09] MEDS: INSULIN ASPART [NOVOLOG] 3 ML PEN SC SCH ×4 (08:07→21:01)
[2017-01-09] MEDS: METOPROLOL (XL) 100 MG TAB PO SCH ×2 (08:09→20:13)
[2017-01-09] MEDS: HEPARIN 5,000 UNIT/0.5 ML VIAL SC SCH ×2 (08:11→20:21)
[2017-01-09] MEDS: SOD FERRIC GLUC COMPLX 125 MG in SOD CHLORIDE 0.9% 100 ML IVPB SCH (09:28)
[2017-01-09 10:00] VITALS: BP 148/72; PULSE 66; PULSE 68
--- NOTE | 2017-01-09 10:50 | PN ---
DATE: 01/09/2017 SUBJECTIVE: The patient is stable, no acute events overnight. No fevers, chills, nausea/vomiting. OBJECTIVE: VITAL SIGNS: Blood pressure 172/74, respirations 20, pulse 67, temperature 98.3. HEENT: Head is normocephalic. NECK: Supple. HEART: Regular rate. LUNGS: Show diminished breath sounds at base. ABDOMEN: Soft, nontender to palpation without rebound or guarding. EXTREMITIES: Negative for clubbing, cyanosis. Trace edema. The patient's right foot is in a dress ing clean, dry, intact. DERMATOLOGIC: No rashes. MUSCULOSKELETAL: No joint effusions. NEUROLOGIC: No change in exam. MEDICATIONS: The patient's medications have been reviewed. LABORATORY DATA: Shows sodium 142, potassium 4.2, chloride 115, bicarbonate 20, BUN 39, creatinine 3.13. White count 7.9, hemoglobin 8.0, hematocrit 25.5, platelet count is 257. ASSESSMENT AND PLAN: 1. Nonoliguric acute kidney injury on top of chronic kidney disease stage IIIB/IV, with previous es timated GFR around 30 mL per minute. The patient's current acute kidney injury is likely multifacto rial secondary to sepsis, hemodynamics. The patient's urinalysis shows no significant hematuria or pyuria. The patient does have nephrotic range of proteinuria, likely due to underlying diabetic nep hropathy. At this point, continue current treatment plan, supportive care, renally dose all meds, c ontinue current antibiotic regimen. We will titrate off IV fluids. 2. Chronic kidney disease, stage IIIB/IV with nephrotic range proteinuria, likely due to diabetic n ephropathy. The patient is currently in acute kidney injury as stated above, would continue current treatment plan. Will continue disease, factor modification, good glycemic and blood pressure contr ol. 3. Mineral bone disorder. Continue to monitor calcium and phosphorus levels. 4. Metabolic acidosis secondary to acute kidney injury, chronic kidney disease, IV fluids, continue to monitor. 5. Diabetes, continue Accu-Cheks and sliding scale. 6. Sepsis secondary to right foot osteomyelitis. Continue current antibiotic regimen. Dictated By: MICHELLE QUINTANILLA/NTS Conf#: [id number] DID#: [id number]
--- NOTE | 2017-01-09 11:27 | PN ---
Date/Time of Note Date/Time of Note DATE: 01/09/17 TIME: 11:24 Assessment/Plan VTE Prophylaxis VTE Prophylaxis Intervention: heparin Lines/Catheters IV Catheter Type (from Nrsg): Peripheral IV Assessment/Plan Assessment/Plan 1. Sepsis secondary to Right foot osteomyelitis 2. Nonoliguric acute kidney injury on top of chronic kidney disease stage III/IV 3. Chronic kidney disease, stage III/IV with nephrotic range proteinuria, likely due to diabetic nephropathy. 4. Diabetes type II, poorly controlled plan: IVF NS at 20 cc/hr IV abx as per ID heparin for DVT prophylaxis pt still needs better pain control, improvement in infection and ID plan Subjective 24 Hr Interval Summary Free Text/Dictation no acute events, BP stable, afebrile Exam/Review of Systems Vital Signs Vitals Vital Signs Date Time Temp Pulse Resp B/P Pulse Ox O2 Delivery O2 Flow Rate FiO2 01/09/17 07:56 98.3 67 20 172/74 97 01/07/17 13:33 Room Air Intake and Output 01/08/17 01/08/17 01/09/17 15:00 23:00 07:00 Intake Total 910 ml 1880 ml 940 ml Output Total 1400 ml Balance 910 ml 480 ml 940 ml Exam HEENT: Head atraumatic, normocephalic. Sclerae anicteric. Buccal mucosa pink. NECK: Supple. CHEST: Rise symmetrical. Breath sounds clear. HEART: S1, S2. ABDOMEN: Soft. Bowel tones present. EXTREMITIES: With right foot dressing intact. Results Result Diagram: 01/09/17 0520 01/09/17 0520 Results 24 hrs Laboratory Tests Test 01/08/17 11:54 01/08/17 17:15 01/08/17 20:12 01/09/17 02:28 Bedside Glucose 214 193 205 137 Test 01/09/17 05:20 01/09/17 08:05 White Blood Count 7.9 Red Blood Count 3.06 L Hemoglobin 8.0 L Hematocrit 25.5 L Mean Corpuscular Volume 83.3 Mean Corpuscular Hemoglobin 26.1 L Mean Corpuscular Hemoglobin Concent 31.4 L Red Cell Distribution Width 15.4 H Platelet Count 257 Mean Platelet Volume 10.1 Neutrophils % 61.8 Lymphocytes % 22.9 Monocytes % 8.6 Eosinophils % 5.9 Basophils % 0.5 Nucleated Red Blood Cells % 0.0 Neutrophils # 4.9 Lymphocytes # 1.8 Monocytes # 0.7 Eosinophils # 0.5 Basophils # 0.0 Nucleated Red Blood Cells # 0.0 Sodium Level 142 Potassium Level 4.2 Chloride Level 115 H Carbon Dioxide Level 20 L Anion Gap 11 Blood Urea Nitrogen 39 H Creatinine 3.13 H Glucose Level 110 # Calcium Level 7.5 L Phosphorus Level 4.0 Magnesium Level 2.2 Creatine Kinase 369 H Bedside Glucose 108 Medications Medications Current Medications Clonidine (Catapres) 0.1 mg Q4H PRN PO sbp>160; Start 01/07/17 at 14:00 Metoprolol Succinate 200 mg 200 mg BID PO Last administered on 01/09/17 08:09; Admin Dose 200 MG; Start 01/07/17 at 21:00 Sodium Chloride (NS) 1,000 ml @ 20 mls/hr Q24H IV Last administered on 23:45; Admin Dose 80 MLS/HR; Start 01/07/17 at 14:00 Ondansetron HCl (Zofran Inj) 4 mg Q6H PRN IV NAUSEA AND/OR VOMITING; Start 01/07 at 14:00 Acetaminophen (Tylenol Tab) 650 mg Q6H PRN PO PAIN LEVEL 1-3 OR FEVER; Start at 14:00 Acetaminophen (Tylenol Supp) 650 mg Q6H PRN [place] PAIN LEVEL 1-3 OR FEVER; Start 01/07/17 at 14:00 Acetaminophen/ Hydrocodone Bitart ([place] (5/325)) 1 tab Q6H PRN PO MODERATE PAIN LEVEL 4-6; Start 01/07/17 at 14:00 Acetaminophen/ Hydrocodone Bitart ([place] (5/325)) 2 tab Q6H PRN PO SEVERE PAIN LEVEL 7-10; Start 01/07/17 at 14:00 Morphine Sulfate (morphine) 2 mg Q4H PRN IV SEVERE PAIN LEVEL 7-10; Start at 14:00 Docusate Sodium (Colace) 100 mg Q12H PRN PO CONSTIPATION; Start 01/07/17 at 14: 00 Magnesium Hydroxide (Milk Of Mag) 30 ml DAILY PRN PO CONSTIPATION; Start at 14:00 Bisacodyl (Dulcolax Supp) 10 mg DAILY PRN [place] CONSTIPATION; Start 01/07/17 at 14: 00 Pantoprazole (Protonix Iv) 40 mg DAILY@06 IV Last administered on 01/09/17 05: 49; Admin Dose 40 MG; Start 01/08/17 at 06:00 Heparin Sodium (Porcine) (Heparin (5000 Units/0.5 ml)) 5,000 unit Q12 SC Last administered on 01/09/17 08:11; Admin Dose 5,000 UNIT; Start 01/07/17 at 21:00 Insulin Glargine 10 unit 10 unit DAILY@20 SC Last administered on 01/08/17 20: 17; Admin Dose 10 UNIT; Start 01/07/17 at 20:00 Piperacillin Sod/ Tazobactam Sod 100 ml @ 200 mls/hr Q8 IVPB Last administered on 01/09/17 05:49; Admin Dose 200 MLS/HR; Start 01/07/17 at 16:30 Ferric Sodium Gluconate Complex 125 mg/Sodium Chloride 110 ml @ 110 mls/hr Q24H IVPB Last administered on 01/09/17 09:28; Admin Dose 110 MLS/HR; Start 01/08/17 at 09:00; Stop 01/12/17 at 09:59 Daptomycin/Sodium Chloride (Cubicin/NS) 100 ml @ 200 mls/hr Q24H IVPB Last administered on 01/08/17 15:59; Admin Dose 200 MLS/HR; Start 01/08/17 at 14:00 Miscellaneous Information 1 ea NOTE XX ; Start 01/09/17 at 07:00 Glucose (Glutose) 15 gm Q15M PRN PO DECREASED GLUCOSE; Start 01/09/17 at 07:00 Glucose (Glutose) 22.5 gm Q15M PRN PO DECREASED GLUCOSE; Start 01/09/17 at 07:00 Dextrose (D50w Syringe) 25 ml Q15M PRN IV DECREASED GLUCOSE; Start 01/09/17 at 07:00 Dextrose (D50w Syringe) 50 ml Q15M PRN IV DECREASED GLUCOSE; Start 01/09/17 at 07:00 Glucagon (Glucagen) 1 mg Q15M PRN IM DECREASED GLUCOSE; Start 01/09/17 at 07:00 Glucose (Glutose) 15 gm Q15M PRN BUCCAL DECREASED GLUCOSE; Start 01/09/17 at 07: 00 BETTY OLIVARES MD Jan 09, 2017 11:27
--- NOTE | 2017-01-09 14:14 | CONS ---
Date/Time of Note Date/Time of Note DATE: 01/09/17 TIME: 14:10 Assessment/Plan Assessment/Plan Chief Complaint/Hosp Course SUBJECTIVE: No acute changes. The patient is alert. Denies pain, looks comfortable, no fevers. MICROBIOLOGY: Blood cultures negative. Urine culture neg. DIAGNOSTICS: MRI of the foot revealed osteomyelitis of the second and third metatarsal heads and proximal phalanges as well as forced metatarsal head on forced proximal phalanx. ANTIMICROBIALS: The patient is on daptomycin and Zosyn PHYSICAL EXAMINATION: GENERAL: Well-nourished, well-developed, middle-aged man who is alert , in no distress. HEENT: Head atraumatic, normocephalic. Sclerae anicteric. Buccal mucosa pink. NECK: Supple. CHEST: Rise symmetrical. Breath sounds clear. HEART: S1, S2. ABDOMEN: Soft. Bowel tones present. EXTREMITIES: With right foot dressing intact. ASSESSMENT: 1. Right foot cellulitis with osteomyelitis, status post incision and drainage. 2. Acute kidney injury on top of chronic kidney disease. 3. Severe anemia, status post transfusion. 4. Diabetes with diabetic neuropathy. 5. Systemic inflammatory response syndrome. PLAN: The patient remains stable. Pending wound cx, will change abx to Zyvox and Merrem given high CPK. Podiatry/nephrology rec-s. DW pt/staff/pharmacy Problems: Consultation Date/Type/Reason Admit Date/Time Jan 07, 2017 at 12:34 Initial Consult Date 01/08/17 Type of Consultation: ID Exam/Review of Systems Vital Signs Vitals Vital Signs Date Time Temp Pulse Resp B/P Pulse Ox O2 Delivery O2 Flow Rate FiO2 01/09/17 07:56 98.3 67 20 172/74 97 01/07/17 13:33 Room Air Intake and Output 01/08/17 01/08/17 01/09/17 15:00 23:00 07:00 Intake Total 910 ml 1880 ml 940 ml Output Total 1400 ml Balance 910 ml 480 ml 940 ml Results Result Diagram: 01/09/17 0520 01/09/17 0520 Results 24 hrs Laboratory Tests Test 01/08/17 17:15 01/08/17 20:12 01/09/17 02:28 01/09/17 05:20 Bedside Glucose 193 205 137 White Blood Count 7.9 Red Blood Count 3.06 L Hemoglobin 8.0 L Hematocrit 25.5 L Mean Corpuscular Volume 83.3 Mean Corpuscular Hemoglobin 26.1 L Mean Corpuscular Hemoglobin Concent 31.4 L Red Cell Distribution Width 15.4 H Platelet Count 257 Mean Platelet Volume 10.1 Neutrophils % 61.8 Lymphocytes % 22.9 Monocytes % 8.6 Eosinophils % 5.9 Basophils % 0.5 Nucleated Red Blood Cells % 0.0 Neutrophils # 4.9 Lymphocytes # 1.8 Monocytes # 0.7 Eosinophils # 0.5 Basophils # 0.0 Nucleated Red Blood Cells # 0.0 Sodium Level 142 Potassium Level 4.2 Chloride Level 115 H Carbon Dioxide Level 20 L Anion Gap 11 Blood Urea Nitrogen 39 H Creatinine 3.13 H Glucose Level 110 # Calcium Level 7.5 L Phosphorus Level 4.0 Magnesium Level 2.2 Creatine Kinase 369 H Test 01/09/17 08:05 01/09/17 11:55 Bedside Glucose 108 216 Medications Medications Current Medications Clonidine (Catapres) 0.1 mg Q4H PRN PO sbp>160; Start 01/07/17 at 14:00 Metoprolol Succinate 200 mg 200 mg BID PO Last administered on 01/09/17 08:09; Admin Dose 200 MG; Start 01/07/17 at 21:00 Sodium Chloride (NS) 1,000 ml @ 20 mls/hr Q24H IV Last administered on 23:45; Admin Dose 80 MLS/HR; Start 01/07/17 at 14:00 Ondansetron HCl (Zofran Inj) 4 mg Q6H PRN IV NAUSEA AND/OR VOMITING; Start 01/07 at 14:00 Acetaminophen (Tylenol Tab) 650 mg Q6H PRN PO PAIN LEVEL 1-3 OR FEVER; Start at 14:00 Acetaminophen (Tylenol Supp) 650 mg Q6H PRN [place] PAIN LEVEL 1-3 OR FEVER; Start 01/07/17 at 14:00 Acetaminophen/ Hydrocodone Bitart ([place] (5/325)) 1 tab Q6H PRN PO MODERATE PAIN LEVEL 4-6; Start 01/07/17 at 14:00 Acetaminophen/ Hydrocodone Bitart ([place] (5/325)) 2 tab Q6H PRN PO SEVERE PAIN LEVEL 7-10; Start 01/07/17 at 14:00 Morphine Sulfate (morphine) 2 mg Q4H PRN IV SEVERE PAIN LEVEL 7-10; Start at 14:00 Docusate Sodium (Colace) 100 mg Q12H PRN PO CONSTIPATION; Start 01/07/17 at 14: 00 Magnesium Hydroxide (Milk Of Mag) 30 ml DAILY PRN PO CONSTIPATION; Start at 14:00 Bisacodyl (Dulcolax Supp) 10 mg DAILY PRN [place] CONSTIPATION; Start 01/07/17 at 14: 00 Heparin Sodium (Porcine) (Heparin (5000 Units/0.5 ml)) 5,000 unit Q12 SC Last administered on 01/09/17 08:11; Admin Dose 5,000 UNIT; Start 01/07/17 at 21:00 Insulin Glargine 10 unit 10 unit DAILY@20 SC Last administered on 01/08/17 20: 17; Admin Dose 10 UNIT; Start 01/07/17 at 20:00 Piperacillin Sod/ Tazobactam Sod 100 ml @ 200 mls/hr Q8 IVPB Last administered on 01/09/17 05:49; Admin Dose 200 MLS/HR; Start 01/07/17 at 16:30 Ferric Sodium Gluconate Complex 125 mg/Sodium Chloride 110 ml @ 110 mls/hr Q24H IVPB Last administered on 01/09/17 09:28; Admin Dose 110 MLS/HR; Start 01/08/17 at 09:00; Stop 01/12/17 at 09:59 Daptomycin/Sodium Chloride (Cubicin/NS) 100 ml @ 200 mls/hr Q24H IVPB Last administered on 01/08/17 15:59; Admin Dose 200 MLS/HR; Start 01/08/17 at 14:00 Miscellaneous Information 1 ea NOTE XX ; Start 01/09/17 at 07:00 Glucose (Glutose) 15 gm Q15M PRN PO DECREASED GLUCOSE; Start 01/09/17 at 07:00 Glucose (Glutose) 22.5 gm Q15M PRN PO DECREASED GLUCOSE; Start 01/09/17 at 07:00 Dextrose (D50w Syringe) 25 ml Q15M PRN IV DECREASED GLUCOSE; Start 01/09/17 at 07:00 Dextrose (D50w Syringe) 50 ml Q15M PRN IV DECREASED GLUCOSE; Start 01/09/17 at 07:00 Glucagon (Glucagen) 1 mg Q15M PRN IM DECREASED GLUCOSE; Start 01/09/17 at 07:00 Glucose (Glutose) 15 gm Q15M PRN BUCCAL DECREASED GLUCOSE; Start 01/09/17 at 07: 00 Pantoprazole (Protonix Tab) 40 mg DAILY@06 PO ; Start 01/10/17 at 06:00 JESUS PAYAN NP Jan 09, 2017 14:14
[2017-01-09] MEDS: SOD CHLORIDE 0.9% 1,000 ML IV SCH (16:00)
[2017-01-09 17:11] LABS: MICROALBUMIN 164.3 mg/dL
--- NOTE | 2017-01-09 17:42 | PN ---
Date/Time of Note Date/Time of Note DATE: 01/09/17 TIME: 17:39 Assessment/Plan Lines/Catheters IV Catheter Type (from Nrs): Peripheral IV Assessment/Plan Problems: (1) Diabetes mellitus with neurological manifestations, uncontrolled Status: Acute (2) Encounter for wound re-check Status: Acute (3) Encounter for laboratory test Status: Acute (4) Diabetic foot ulcer Status: Acute Qualifiers: Diabetic foot ulcer location: midfoot Diabetes mellitus type: type 2 Laterality: right Non-pressure ulcer stage: unspecified non-pressure ulcer stage Qualified Code: E11.621 - Diabetic ulcer of right midfoot associated with type 2 diabetes mellitus, unspecified ulcer stage (5) Diabetic foot infection Status: Acute Comment: Patient will be scheduled for surgery tomorrow in the afternoon. Surgery will involve debridement of necrotic soft tissue and bone with bone biopsy. Patient to be n.p.o. after breakfast. (6) Anemia Status: Acute Qualifiers: Anemia type: unspecified type Qualified Code: D64.9 - Anemia, unspecified type (7) Chronic renal insufficiency Status: Acute Qualifiers: Chronic kidney disease stage: unspecified stage Qualified Code: N18.9 - Chronic renal insufficiency, unspecified stage (8) Open wound of right foot with complication Subjective 24 Hr Interval Summary Patient was seen at bedside. Patient is in no acute distress. Patient reports no new adverse events. Patient denies fever, chills, nausea or vomiting. Patient denies pain. Patient denies recent trauma. Patient reports bandages are being changed as directed. Patient does not report any new problems. Constitutional: no complaints Pain Control: well controlled Exam/Review of Systems Vital Signs Vitals Vital Signs Date Time Temp Pulse Resp B/P Pulse Ox O2 Delivery O2 Flow Rate FiO2 01/09/17 10:00 66 148/72 68 01/09/17 07:56 98.3 20 97 01/07/17 13:33 Room Air Intake and Output 01/08/17 01/08/17 01/09/17 15:00 23:00 07:00 Intake Total 910 ml 1880 ml 940 ml Output Total 1400 ml Balance 910 ml 480 ml 940 ml Exam Free Text/Dictation Patient is laying supine in bed in no acute distress. There is drainage noted on the bandages. Open wound present on the dorsal aspect of the third metatarsophalangeal joint communicating with another open wound on the plantar aspect of the third metatarsophalangeal joint. Necrotic tissue present both dorsally and plantarly with decrease in malodor since I did the irrigation of the wound yesterday. There is decrease in edema of the right lower extremity. Palpable pulses noted more on the left than the right. Labs reviewed. MRI shows osteomyelitis of the second third and fourth metatarsal heads and the third proximal phalanx. Results Result Diagram: 01/09/17 0520 01/09/17 0520 CHINMAY ANNE DPM Jan 09, 2017 17:41
[2017-01-09 19:00] VITALS: BP 185/81; RESP 18
[2017-01-09] MEDS: MEROPENEM 500 MG/100 ML (PMX) 100 ML IVPB SCH (20:13)
[2017-01-09] MEDS: ZYVOX 600 MG TAB PO SCH (20:13)
[2017-01-09] MEDS: INSULIN GLARGINE [LANtus] 3 ML PEN SC SCH (20:20)
[2017-01-09 21:40] VITALS: BP 141/65; PULSE 66; PULSE 85
[2017-01-10] VITALS (7 sets, daily range): BP systolic 135–200; BP diastolic 68–89; PULSE 63–68; RESP 18–19
[2017-01-10] MEDS: PANTOPRAZOLE (EC) 40 MG TAB PO SCH (05:30)
[2017-01-10] MEDS: SOD CHLORIDE 0.9% 1,000 ML IV SCH (05:30)
[2017-01-10 06:38] LABS: POTASSIUM 3.9 mmol/L (3.5-5.1)
[2017-01-10 06:41] LABS: CREATININE 3.21 mg/dl (0.61-1.24)
[2017-01-10 06:42] LABS: CALCIUM 7.7 mg/dl (8.4-10.2); MAGNESIUM 2.2 mg/dl (1.7-2.5); PHOSPHORUS 4.3 mg/dl (2.5-4.9)
[2017-01-10] MEDS: MEROPENEM 500 MG/100 ML (PMX) 100 ML IVPB SCH ×2 (07:59→21:27)
[2017-01-10] MEDS: INSULIN ASPART [NOVOLOG] 3 ML PEN SC SCH ×4 (08:04→21:00)
[2017-01-10] MEDS: HEPARIN 5,000 UNIT/0.5 ML VIAL SC SCH ×2 (08:07→21:24)
[2017-01-10] MEDS: ZYVOX 600 MG TAB PO SCH ×2 (08:14→21:24)
[2017-01-10] MEDS: METOPROLOL (XL) 100 MG TAB PO SCH ×2 (08:34→21:26)
[2017-01-10] MEDS: SOD FERRIC GLUC COMPLX 125 MG in SOD CHLORIDE 0.9% 100 ML IVPB SCH (08:35)
--- NOTE | 2017-01-10 09:33 | PN ---
DATE: 01/10/2017 SUBJECTIVE: The patient is stable, no acute events overnight. No fevers, chills, nausea, vomiting. OBJECTIVE: VITAL SIGNS: Blood pressure 141/65, respirations 19, pulse 66, temperature 98.1. HEENT: Head is normocephalic. NECK: Supple. HEART: Regular rate. LUNGS: Show diminished breath sounds at base. ABDOMEN: Soft, nontender to palpation, without rebound or guarding. EXTREMITIES: Negative for clubbing, cyanosis, edema the left leg. The right extremity is negative for clubbing, cyanosis. Positive dressing over his foot. Clean, dry, intact. DERMATOLOGIC: No rashes. MUSCULOSKELETAL: No joint effusions. NEUROLOGIC: No change in exam. LABORATORY DATA: Sodium 142, potassium BUN 31, creatinine 3.21. White count 7.9, hemoglobin 8.0, hematocrit 25.5, platelet count 257,000. ASSESSMENT AND PLAN: 1. Nonoliguric acute kidney injury on top of chronic kidney disease stage IIIB/IV with previous est imated GFR around 30 mL per minute. Etiology of current acute kidney injury is multifactorial, seco ndary to sepsis, hemodynamics. The patient's renal function appears to have stabilized. At this po int we will continue current treatment plan, supportive care, renally dose medications. We will dis continue IV fluids. Continue current antibiotic regimen and monitor renal function closely. 2. Chronic kidney disease, stage IIIB/IV with nephrotic range proteinuria. Etiology is likely due to diabetic nephropathy. The patient is currently in acute kidney injury as stated above. Continue disease factor modification, good glycemic and blood pressure control. 3. Mineral bone disorder. Continue to monitor calcium and phosphorus levels. 4. Metabolic acidosis secondary to acute kidney injury. Continue to monitor. 5. Diabetes. Continue Accu-Cheks and sliding scale. 6. Sepsis secondary to right foot osteomyelitis. Continue current antibiotic regimen. The patient is pending surgery. Dictated By: MICHELLE QUINTANILLA/HILDA Conf#: [id number] DID#: [id number]
--- NOTE | 2017-01-10 11:26 | PN ---
Date/Time of Note Date/Time of Note DATE: 01/10/17 TIME: 11:23 Assessment/Plan VTE Prophylaxis VTE Prophylaxis Intervention: heparin Lines/Catheters IV Catheter Type (from Nrsg): Peripheral IV Assessment/Plan Assessment/Plan 1. Sepsis secondary to Right foot osteomyelitis, plan for I & D of right midfoot today by podiatry 2. Nonoliguric acute kidney injury on top of chronic kidney disease stage III/IV 3. Chronic kidney disease, stage III/IV with nephrotic range proteinuria, likely due to diabetic nephropathy. 4. Diabetes type II, poorly controlled plan: is planning for I & D of right midfoot today, Need buttermaker IV abx as per ID IV abx as per ID heparin for DVT prophylaxis pt still needs better pain control, improvement in infection and I & D Subjective 24 Hr Interval Summary Free Text/Dictation milind for I & D of right midfoot today by podiatry Exam/Review of Systems Vital Signs Vitals Vital Signs Date Time Temp Pulse Resp B/P Pulse Ox O2 Delivery O2 Flow Rate FiO2 01/10/17 07:21 98.2 66 19 100 01/09/17 21:40 Room Air Intake and Output 01/09/17 01/09/17 01/10/17 14:59 22:59 06:59 Intake Total 1610 ml 820 ml 800 ml Balance 1610 ml 820 ml 800 ml Exam HEENT: Head atraumatic, normocephalic. Sclerae anicteric. Buccal mucosa pink. NECK: Supple. CHEST: Rise symmetrical. Breath sounds clear. HEART: S1, S2. ABDOMEN: Soft. Bowel tones present. EXTREMITIES: With right foot dressing intact. Results Result Diagram: 01/09/17 0520 01/10/17 0529 Results 24 hrs Laboratory Tests Test 01/09/17 11:55 01/09/17 17:36 01/09/17 20:16 01/10/17 02:29 Bedside Glucose 216 172 232 H 171 Test 01/10/17 05:29 01/10/17 07:39 Sodium Level 142 Potassium Level 3.9 Chloride Level 114 H Carbon Dioxide Level 21 Anion Gap 11 Blood Urea Nitrogen 31 H Creatinine 3.21 H Glucose Level 164 Calcium Level 7.7 L Phosphorus Level 4.3 Magnesium Level 2.2 Bedside Glucose 144 Medications Medications Current Medications Clonidine (Catapres) 0.1 mg Q4H PRN PO sbp>160 Last administered on 01/10/17 07 :51; Admin Dose 0.1 MG; Start 01/07/17 at 14:00 Metoprolol Succinate (Toprol Xl) 200 mg BID PO Last administered on 01/10/17 08 :34; Admin Dose 200 MG; Start 01/07/17 at 21:00 Ondansetron HCl (Zofran Inj) 4 mg Q6H PRN IV NAUSEA AND/OR VOMITING; Start 01/07 at 14:00 Acetaminophen (Tylenol Tab) 650 mg Q6H PRN PO PAIN LEVEL 1-3 OR FEVER; Start at 14:00 Acetaminophen (Tylenol Supp) 650 mg Q6H PRN [place] PAIN LEVEL 1-3 OR FEVER; Start 01/07/17 at 14:00 Acetaminophen/ Hydrocodone Bitart ([place] (5/325)) 1 tab Q6H PRN PO MODERATE PAIN LEVEL 4-6; Start 01/07/17 at 14:00 Acetaminophen/ Hydrocodone Bitart ([place] (5/325)) 2 tab Q6H PRN PO SEVERE PAIN LEVEL 7-10; Start 01/07/17 at 14:00 Morphine Sulfate (morphine) 2 mg Q4H PRN IV SEVERE PAIN LEVEL 7-10; Start at 14:00 Docusate Sodium (Colace) 100 mg Q12H PRN PO CONSTIPATION; Start 01/07/17 at 14: 00 Magnesium Hydroxide (Milk Of Mag) 30 ml DAILY PRN PO CONSTIPATION; Start at 14:00 Bisacodyl (Dulcolax Supp) 10 mg DAILY PRN [place] CONSTIPATION; Start 01/07/17 at 14: 00 Heparin Sodium (Porcine) (Heparin (5000 Units/0.5 ml)) 5,000 unit Q12 SC Last administered on 01/09/17 20:21; Admin Dose 5,000 UNIT; Start 01/07/17 at 21:00 Insulin Glargine 10 unit 10 unit DAILY@20 SC Last administered on 01/09/17 20: 20; Admin Dose 10 UNIT; Start 01/07/17 at 20:00 Ferric Sodium Gluconate Complex/ Sodium Chloride ([place]lecit/NS) 110 ml @ 110 mls/hr Q24H IVPB Last administered on 01/10/17 08:35; Admin Dose 110 MLS/HR; Start 01/08/17 at 09:00; Stop 01/12/17 at 09:59 Miscellaneous Information 1 ea NOTE XX ; Start 01/09/17 at 07:00 Glucose (Glutose) 15 gm Q15M PRN PO DECREASED GLUCOSE; Start 01/09/17 at 07:00 Glucose (Glutose) 22.5 gm Q15M PRN PO DECREASED GLUCOSE; Start 01/09/17 at 07:00 Dextrose (D50w Syringe) 25 ml Q15M PRN IV DECREASED GLUCOSE; Start 01/09/17 at 07:00 Dextrose (D50w Syringe) 50 ml Q15M PRN IV DECREASED GLUCOSE; Start 01/09/17 at 07:00 Glucagon (Glucagen) 1 mg Q15M PRN IM DECREASED GLUCOSE; Start 01/09/17 at 07:00 Glucose (Glutose) 15 gm Q15M PRN BUCCAL DECREASED GLUCOSE; Start 01/09/17 at 07: 00 Pantoprazole (Protonix Tab) 40 mg DAILY@06 PO Last administered on 01/10/17 05: 30; Admin Dose 40 MG; Start 01/10/17 at 06:00 Linezolid 600 mg 600 mg BID PO Last administered on 01/09/17 20:13; Admin Dose 600 MG; Start 01/09/17 at 21:00 Meropenem (Merrem 500 Mg/ 100 ml (Pmx)) 100 ml @ 200 mls/hr Q12 IVPB Last administered on 01/10/17 07:59; Admin Dose 200 MLS/HR; Start 01/09/17 at 21:00 Hydralazine HCl (Apresoline) 10 mg Q4H PRN IV SBP > 160; Start 01/10/17 at 08:30 BETTY OLIVARES MD Jan 10, 2017 11:26
--- NOTE | 2017-01-10 13:22 | PN ---
DATE: 01/10/2017 SUBJECTIVE: The patient is lying comfortably in bed, sleeping. No fevers. Vital signs stable. LABORATORY: No CBC this morning. BUN 31, creatinine 3.21. ANTIMICROBIALS: 1. Merrem 2. Zyvox. MICROBIOLOGY: Wound culture not done yet. PHYSICAL EXAMINATION: GENERAL: Well-developed, middle-aged man in no distress. HEENT: Head atraumatic, normocephalic. Sclerae anicteric. Buccal mucosa pink. NECK: Supple. CHEST: Rise symmetrical. Breath sounds clear. HEART: S1, S2. ABDOMEN: Soft, bowel tones present. EXTREMITIES: Without cyanosis. Right foot dressing intact. ASSESSMENT: 1. Right foot gangrene, osteomyelitis. 2. Acute renal failure. 3. Diabetes. 4. Severe anemia. 5. Systemic inflammatory response syndrome. PLAN: The patient remains stable. Continue present care. Await for I and D by podiatry. Await fo r wound cultures. Anticipate treating with long-term IV antibiotics. Dictated By: JESUS PAYAN PEDIATRIC NEUROPSYCHOLOGIST for JONNY MONREAL/HILDA Conf#: [id number] DID#: [id number]
[2017-01-10] MEDS: INSULIN GLARGINE [LANtus] 3 ML PEN SC SCH (21:32)
[2017-01-11] MEDS: PANTOPRAZOLE (EC) 40 MG TAB PO SCH (05:36)
[2017-01-11 05:42] LABS: ADD SCAN DIFF NO
[2017-01-11 05:48] LABS: BASOPHILS % 0.3 % (0.0-2.0); EOSINOPHILS # 0.4 10^3/ul (0.0-0.5); HEMATOCRIT 29.9 % (42.0-52.0); LYMPHOCYTES # 1.6 10^3/ul (0.8-2.9); MEAN CORPUSCULAR HEMOGLOBIN 25.6 pg (29.0-33.0); MEAN CORPUSCULAR HGB CONC 30.1 g/dl (32.0-37.0); MEAN CORPUSCULAR VOLUME 84.9 fl (82.0-101.0); MEAN PLATELET VOLUME 9.3 fl (7.4-10.4); MONOCYTE # 0.6 10^3/ul (0.3-0.9); MONOCYTES % 8.6 % (0.0-11.0); NEUTROPHIL # 4.2 10^3/ul (1.6-7.5); NEUTROPHILS % 61.2 % (39.0-77.0); PLATELET COUNT 281 10^3/UL (140-415); RED BLOOD COUNT 3.52 10^6/ul (4.70-6.10); RED CELL DISTRIBUTION WIDTH 15.9 % (11.5-14.5); WHITE BLOOD COUNT 6.9 10^3/ul (4.8-10.8)
[2017-01-11 06:00] LABS: POTASSIUM 4.1 mmol/L (3.5-5.1)
[2017-01-11 06:02] LABS: CREATININE 2.92 mg/dl (0.61-1.24)
[2017-01-11 06:03] LABS: CALCIUM 7.7 mg/dl (8.4-10.2); MAGNESIUM 2.2 mg/dl (1.7-2.5); PHOSPHORUS 4.4 mg/dl (2.5-4.9)
[2017-01-11 07:54] VITALS: BP 170/61; RESP 19
[2017-01-11] MEDS: INSULIN ASPART [NOVOLOG] 3 ML PEN SC SCH ×4 (08:15→21:12)
[2017-01-11] MEDS: ZYVOX 600 MG TAB PO SCH ×2 (08:47→21:17)
[2017-01-11] MEDS: METOPROLOL (XL) 100 MG TAB PO SCH ×2 (08:51→21:10)
[2017-01-11] MEDS: MEROPENEM 500 MG/100 ML (PMX) 100 ML IVPB SCH ×2 (09:00→21:39)
[2017-01-11] MEDS: HEPARIN 5,000 UNIT/0.5 ML VIAL SC SCH ×2 (09:07→21:13)
[2017-01-11] MEDS: SOD FERRIC GLUC COMPLX 125 MG in SOD CHLORIDE 0.9% 100 ML IVPB SCH (09:53)
--- NOTE | 2017-01-11 09:57 | PN ---
DATE: 01/11/2017 SUBJECTIVE: The patient is stable, no acute events overnight. No fevers, chills, nausea, vomiting. OBJECTIVE: VITAL SIGNS: Blood pressure 170/61, respirations 19, pulse 63, temperature 97.8. HEENT: Head is normocephalic. NECK: Supple. HEART: Regular rate. LUNGS: Show diminished breath sounds at the base. ABDOMEN: Soft, nontender to palpation. No rebound or guarding. EXTREMITIES: Negative for clubbing, cyanosis. No edema of left leg. Right foot has dressing, it i s clean, dry, and intact. NEUROLOGIC: No change in exam. MEDICATIONS: The patient's medications reviewed. LABORATORY DATA: Showed sodium 139, potassium 4.1, bicarbonate of 15, BUN 26, creatinine 2.92. Whi te count 6.9, hemoglobin 9.0, hematocrit 29.9, platelet count 281,000. ASSESSMENT AND PLAN: 1. Nonoliguric acute kidney injury on top of chronic kidney disease stage IIIB/IV, with a previous EGFR of around 30 mL per minute. Etiology of acute kidney injury is multifactorial, secondary to he modynamics, possible sepsis. The patient's renal function appears to be slowly improving. Continue current treatment plan. Supportive care, renally dose all medications, avoid nephrotoxins. 2. Chronic kidney disease, stage IIIB/IV with nephrotic range proteinuria. Etiology is likely seco ndary to diabetic nephropathy. The patient currently in acute kidney injury as stated above. [place] disease factor modification with good glycemic and blood pressure control. 3. Mineral bone disorder. Continue to monitor calcium and phosphorus levels. Defer phosphate bind ers. 4. Anemia, with component of iron deficiency. The patient is on IV iron, continue. Continue Epoge n. 5. Metabolic acidosis secondary to acute kidney injury. Continue to monitor. 6. Diabetes. Continue current insulin regimen. 7. Sepsis secondary to right foot osteomyelitis. Continue current antibiotic regimen. Follow up w [facility] podiatry. The patient is status post incision and drainage. Follow up with infectious disease. 8. Hypertension. Continue current blood pressure regimen. Continue pain control. Dictated By: MICHELLE HAZEL DO NR/NTS Conf#: [id number] DID#: [id number]
--- NOTE | 2017-01-11 11:36 | PN ---
Date/Time of Note Date/Time of Note DATE: 01/11/17 TIME: 11:33 Assessment/Plan VTE Prophylaxis VTE Prophylaxis Intervention: heparin Lines/Catheters IV Catheter Type (from Nrsg): Saline Lock Assessment/Plan Assessment/Plan 1. Sepsis secondary to Right foot osteomyelitis, plan for I & D of right midfoot by podiatry on 01/13/17 2. Nonoliguric acute kidney injury on top of chronic kidney disease stage III/ IV 3. Chronic kidney disease, stage III/IV with nephrotic range proteinuria, likely due to diabetic nephropathy. 4. Diabetes type II, poorly controlled 5. 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 Sclerae anicteric. Buccal mucosa pink. NECK: Supple. CHEST: Rise symmetrical. Breath sounds clear. HEART: S1, S2. ABDOMEN: Soft. Bowel tones present. EXTREMITIES: With right foot dressing intact. Results Result Diagram: 01/11/17 0530 01/11/17 0530 Results 24 hrs Laboratory Tests Test 01/10/17 11:58 01/10/17 17:09 01/10/17 21:17 01/11/17 05:30 Bedside Glucose 97 91 141 White Blood Count 6.9 Red Blood Count 3.52 L Hemoglobin 9.0 L Hematocrit 29.9 L Mean Corpuscular Volume 84.9 Mean Corpuscular Hemoglobin 25.6 L Mean Corpuscular Hemoglobin Concent 30.1 L Red Cell Distribution Width 15.9 H Platelet Count 281 Mean Platelet Volume 9.3 Neutrophils % 61.2 Lymphocytes % 23.0 Monocytes % 8.6 Eosinophils % 6.0 Basophils % 0.3 Nucleated Red Blood Cells % 0.0 Neutrophils # 4.2 Lymphocytes # 1.6 Monocytes # 0.6 Eosinophils # 0.4 Basophils # 0.0 Nucleated Red Blood Cells # 0.0 Sodium Level 139 Potassium Level 4.1 Chloride Level 115 H Carbon Dioxide Level 22 Anion Gap 6 L Blood Urea Nitrogen 26 H Creatinine 2.92 H Glucose Level 144 Calcium Level 7.7 L Phosphorus Level 4.4 Magnesium Level 2.2 Test 01/11/17 08:05 Bedside Glucose 110 Medications Medications Current Medications Clonidine (Catapres) 0.1 mg Q4H PRN PO sbp>160 Last administered on 01/10/17 07 :51; Admin Dose 0.1 MG; Start 01/07/17 at 14:00 Metoprolol Succinate (Toprol Xl) 200 mg BID PO Last administered on 01/11/17 08 :51; Admin Dose 200 MG; Start 01/07/17 at 21:00 Ondansetron HCl (Zofran Inj) 4 mg Q6H PRN IV NAUSEA AND/OR VOMITING; Start 01/07 at 14:00 Acetaminophen (Tylenol Tab) 650 mg Q6H PRN PO PAIN LEVEL 1-3 OR FEVER; Start at 14:00 Acetaminophen (Tylenol Supp) 650 mg Q6H PRN [place] PAIN LEVEL 1-3 OR FEVER; Start 01/07/17 at 14:00 Acetaminophen/ Hydrocodone Bitart ([place] (5/325)) 1 tab Q6H PRN PO MODERATE PAIN LEVEL 4-6; Start 01/07/17 at 14:00 Acetaminophen/ Hydrocodone Bitart ([place] (5/325)) 2 tab Q6H PRN PO SEVERE PAIN LEVEL 7-10; Start 01/07/17 at 14:00 Morphine Sulfate (morphine) 2 mg Q4H PRN IV SEVERE PAIN LEVEL 7-10; Start at 14:00 Docusate Sodium (Colace) 100 mg Q12H PRN PO CONSTIPATION; Start 01/07/17 at 14: 00 Magnesium Hydroxide (Milk Of Mag) 30 ml DAILY PRN PO CONSTIPATION; Start at 14:00 Bisacodyl (Dulcolax Supp) 10 mg DAILY PRN [place] CONSTIPATION; Start 01/07/17 at 14: 00 Heparin Sodium (Porcine) (Heparin (5000 Units/0.5 ml)) 5,000 unit Q12 SC Last administered on 01/11/17 09:07; Admin Dose 5,000 UNIT; Start 01/07/17 at 21:00 Insulin Glargine 10 unit 10 unit DAILY@20 SC Last administered on 01/10/17 21: 32; Admin Dose 10 UNIT; Start 01/07/17 at 20:00 Ferric Sodium Gluconate Complex/ Sodium Chloride (Ferrlecit/NS) 110 ml @ 110 mls/hr Q24H IVPB Last administered on 01/11/17 09:53; Admin Dose 110 MLS/HR; Start 01/08/17 at 09:00; Stop 01/12/17 at 09:59 Miscellaneous Information 1 ea NOTE XX ; Start 01/09/17 at 07:00 Glucose (Glutose) 15 gm Q15M PRN PO DECREASED GLUCOSE; Start 01/09/17 at 07:00 Glucose (Glutose) 22.5 gm Q15M PRN PO DECREASED GLUCOSE; Start 01/09/17 at 07:00 Dextrose (D50w Syringe) 25 ml Q15M PRN IV DECREASED GLUCOSE; Start 01/09/17 at 07:00 Dextrose (D50w Syringe) 50 ml Q15M PRN IV DECREASED GLUCOSE; Start 01/09/17 at 07:00 Glucagon (Glucagen) 1 mg Q15M PRN IM DECREASED GLUCOSE; Start 01/09/17 at 07:00 Glucose (Glutose) 15 gm Q15M PRN BUCCAL DECREASED GLUCOSE; Start 01/09/17 at 07: 00 Pantoprazole (Protonix Tab) 40 mg DAILY@06 PO Last administered on 01/11/17 05: 36; Admin Dose 40 MG; Start 01/10/17 at 06:00 Linezolid 600 mg 600 mg BID PO Last administered on 01/11/17 08:47; Admin Dose 600 MG; Start 01/09/17 at 21:00 Meropenem (Merrem 500 Mg/ 100 ml (Pmx)) 100 ml @ 200 mls/hr Q12 IVPB Last administered on 01/11/17 09:00; Admin Dose 200 MLS/HR; Start 01/09/17 at 21:00 Hydralazine HCl (Apresoline) 10 mg Q4H PRN IV SBP > 160; Start 01/10/17 at 08:30 BETTY OLIVARES MD Jan 11, 2017 11:36
[2017-01-11 11:45] VITALS: BP_SYST 175; BP_SYST 193; BP_DIAS 84; PULSE 64
[2017-01-11] MEDS: hydrALAzine 20 MG INJ IV PRN (11:48)
[2017-01-11] MEDS ORDERED: NIFEdipine (XL) 60 MG TAB PO ONE (12:00)
[2017-01-11 12:15] VITALS: BP_SYST 152; BP_SYST 168; BP_DIAS 72; BP_DIAS 76; PULSE 69
--- NOTE | 2017-01-11 15:03 | CONS ---
Date/Time of Note Date/Time of Note DATE: 01/11/17 TIME: 15:00 Assessment/Plan Assessment/Plan Chief Complaint/Hosp Course SUBJECTIVE: Alert, ambulating in the room. No fevers. e 3.21. ANTIMICROBIALS: 1. Merrem 2. Zyvox. PHYSICAL EXAMINATION: GENERAL: Well-developed, middle-aged man in no distress. HEENT: Head atraumatic, normocephalic. Sclerae anicteric. Buccal mucosa pink. NECK: Supple. CHEST: Rise symmetrical. Breath sounds clear. HEART: S1, S2. ABDOMEN: Soft, bowel tones present. EXTREMITIES: Without cyanosis. Right foot dressing intact. ASSESSMENT: 1. Right foot gangrene, osteomyelitis. 2. Acute renal failure. 3. Diabetes. 4. Severe anemia. 5. Systemic inflammatory response syndrome. PLAN: The patient remains stable. Continue present care. Await for wound cx, f/u podiatry eval. Anticipate treating with long-term IV antibiotics. DW staff Problems: Consultation Date/Type/Reason Admit Date/Time Jan 07, 2017 at 12:34 Initial Consult Date 01/08/17 Type of Consultation: ID Exam/Review of Systems Vital Signs Vitals Vital Signs Date Time Temp Pulse Resp B/P Pulse Ox O2 Delivery O2 Flow Rate FiO2 01/11/17 12:15 69 168/76 152/72 01/11/17 07:54 97.8 19 97 01/09/17 21:40 Room Air Intake and Output 01/10/17 01/10/17 01/11/17 14:59 22:59 06:59 Intake Total 210 ml 800 ml Balance 210 ml 800 ml Results Result Diagram: 01/11/17 0530 01/11/17 0530 Results 24 hrs Laboratory Tests Test 01/10/17 17:09 01/10/17 21:17 01/11/17 05:30 01/11/17 08:05 Bedside Glucose 91 141 110 White Blood Count 6.9 Red Blood Count 3.52 L Hemoglobin 9.0 L Hematocrit 29.9 L Mean Corpuscular Volume 84.9 Mean Corpuscular Hemoglobin 25.6 L Mean Corpuscular Hemoglobin Concent 30.1 L Red Cell Distribution Width 15.9 H Platelet Count 281 Mean Platelet Volume 9.3 Neutrophils % 61.2 Lymphocytes % 23.0 Monocytes % 8.6 Eosinophils % 6.0 Basophils % 0.3 Nucleated Red Blood Cells % 0.0 Neutrophils # 4.2 Lymphocytes # 1.6 Monocytes # 0.6 Eosinophils # 0.4 Basophils # 0.0 Nucleated Red Blood Cells # 0.0 Sodium Level 139 Potassium Level 4.1 Chloride Level 115 H Carbon Dioxide Level 22 Anion Gap 6 L Blood Urea Nitrogen 26 H Creatinine 2.92 H Glucose Level 144 Calcium Level 7.7 L Phosphorus Level 4.4 Magnesium Level 2.2 Test 01/11/17 12:11 Bedside Glucose 186 Medications Medications Current Medications Metoprolol Succinate (Toprol Xl) 200 mg BID PO Last administered on 01/11/17 08 :51; Admin Dose 200 MG; Start 01/07/17 at 21:00 Ondansetron HCl (Zofran Inj) 4 mg Q6H PRN IV NAUSEA AND/OR VOMITING; Start 01/07 at 14:00 Acetaminophen (Tylenol Tab) 650 mg Q6H PRN PO PAIN LEVEL 1-3 OR FEVER; Start at 14:00 Acetaminophen (Tylenol Supp) 650 mg Q6H PRN [place] PAIN LEVEL 1-3 OR FEVER; Start 01/07/17 at 14:00 Acetaminophen/ Hydrocodone Bitart ([place] (5/325)) 1 tab Q6H PRN PO MODERATE PAIN LEVEL 4-6; Start 01/07/17 at 14:00 Acetaminophen/ Hydrocodone Bitart ([place] (5/325)) 2 tab Q6H PRN PO SEVERE PAIN LEVEL 7-10; Start 01/07/17 at 14:00 Morphine Sulfate (morphine) 2 mg Q4H PRN IV SEVERE PAIN LEVEL 7-10; Start at 14:00 Docusate Sodium (Colace) 100 mg Q12H PRN PO CONSTIPATION; Start 01/07/17 at 14: 00 Magnesium Hydroxide (Milk Of Mag) 30 ml DAILY PRN PO CONSTIPATION; Start at 14:00 Bisacodyl (Dulcolax Supp) 10 mg DAILY PRN [place] CONSTIPATION; Start 01/07/17 at 14: 00 Heparin Sodium (Porcine) (Heparin (5000 Units/0.5 ml)) 5,000 unit Q12 SC Last administered on 01/11/17 09:07; Admin Dose 5,000 UNIT; Start 01/07/17 at 21:00 Insulin Glargine 10 unit 10 unit DAILY@20 SC Last administered on 01/10/17 21: 32; Admin Dose 10 UNIT; Start 01/07/17 at 20:00 Ferric Sodium Gluconate Complex/ Sodium Chloride (Ferrlecit/NS) 110 ml @ 110 mls/hr Q24H IVPB Last administered on 01/11/17 09:53; Admin Dose 110 MLS/HR; Start 01/08/17 at 09:00; Stop 01/12/17 at 09:59 Miscellaneous Information 1 ea NOTE XX ; Start 01/09/17 at 07:00 Glucose (Glutose) 15 gm Q15M PRN PO DECREASED GLUCOSE; Start 01/09/17 at 07:00 Glucose (Glutose) 22.5 gm Q15M PRN PO DECREASED GLUCOSE; Start 01/09/17 at 07:00 Dextrose (D50w Syringe) 25 ml Q15M PRN IV DECREASED GLUCOSE; Start 01/09/17 at 07:00 Dextrose (D50w Syringe) 50 ml Q15M PRN IV DECREASED GLUCOSE; Start 01/09/17 at 07:00 Glucagon (Glucagen) 1 mg Q15M PRN IM DECREASED GLUCOSE; Start 01/09/17 at 07:00 Glucose (Glutose) 15 gm Q15M PRN BUCCAL DECREASED GLUCOSE; Start 01/09/17 at 07: 00 Pantoprazole (Protonix Tab) 40 mg DAILY@06 PO Last administered on 01/11/17 05: 36; Admin Dose 40 MG; Start 01/10/17 at 06:00 Linezolid 600 mg 600 mg BID PO Last administered on 01/11/17 08:47; Admin Dose 600 MG; Start 01/09/17 at 21:00 Meropenem (Merrem 500 Mg/ 100 ml (Pmx)) 100 ml @ 200 mls/hr Q12 IVPB Last administered on 01/11/17 09:00; Admin Dose 200 MLS/HR; Start 01/09/17 at 21:00 Hydralazine HCl (Apresoline) 10 mg Q4H PRN IV SBP > 160 Last administered on 11:48; Admin Dose 10 MG; Start 01/10/17 at 08:30 Clonidine (Catapres) 0.1 mg Q6H PRN PO sbp>150; Start 01/11/17 at 16:00 Nifedipine (Procardia Xl) 60 mg DAILY PO ; Start 01/12/17 at 09:00 JESUS PAYAN NP Jan 11, 2017 15:03
[2017-01-11 17:56] VITALS: BP 152/71
[2017-01-11 19:53] VITALS: BP 165/70; RESP 18
[2017-01-11] MEDS: INSULIN GLARGINE [LANtus] 3 ML PEN SC SCH (21:11)
--- NOTE | 2017-01-11 23:59 | PN ---
Date/Time of Note Date/Time of Note DATE: 01/11/17 TIME: 23:59 Assessment/Plan Lines/Catheters IV [facility] Type [facility]from [facility] Saline Lock Assessment/Plan Problems: (1) Diabetes mellitus with neurological manifestations, uncontrolled Status: Acute (2) Encounter for wound re-check Status: Acute (3) Encounter for laboratory test Status: Acute (4) Diabetic foot ulcer Status: Acute Qualifiers: Diabetic foot ulcer location: midfoot Diabetes mellitus type: type 2 Laterality: right Non-pressure ulcer stage: unspecified non-pressure ulcer stage Qualified Code: E11.621 - Diabetic ulcer of right midfoot associated with type 2 diabetes mellitus, unspecified ulcer stage (5) Diabetic foot infection Status: Acute (6) Anemia Status: Acute Qualifiers: Anemia type: unspecified type Qualified Code: D64.9 - Anemia, unspecified type (7) Chronic renal insufficiency Status: Acute Qualifiers: Chronic kidney disease stage: unspecified stage Qualified Code: N18.9 - Chronic renal insufficiency, unspecified stage (8) Open wound of right foot with complication Assessment/Plan Patient is scheduled for surgery tomorrow at 7:30 AM. Exam/Review of Systems Vital Signs Vitals Vital Signs Date Time Temp Pulse Resp B/P Pulse Ox O2 Delivery O2 Flow Rate FiO2 01/11/17 19:53 98.2 69 18 165/70 96 01/09/17 21:40 Room Air Intake and Output 01/10/17 01/10/17 01/11/17 15:00 23:00 07:00 Intake Total 210 ml 900 ml Balance 210 ml 900 ml Results Result Diagram: 01/11/17 0530 01/11/17 0530 CHINMAY ANNE DPM Jan 11, 2017 23:59
[2017-01-12] VITALS (20 sets, daily range): BP systolic 132–181; BP diastolic 63–88; PULSE 62–72; RESP 17–22
[2017-01-12] MEDS: PANTOPRAZOLE (EC) 40 MG TAB PO SCH (06:00)
[2017-01-12 06:21] LABS: ADD SCAN DIFF NO
[2017-01-12 06:27] LABS: BASOPHILS % 0.1 % (0.0-2.0); EOSINOPHILS # 0.3 10^3/ul (0.0-0.5); EOSINOPHILS % 4.2 % (0.0-7.0); HEMATOCRIT 30.9 % (42.0-52.0); HEMOGLOBIN 9.4 g/dl (14.0-18.0); LYMPHOCYTES # 1.8 10^3/ul (0.8-2.9); LYMPHOCYTES % 26.6 % (15.0-51.0); MEAN CORPUSCULAR HEMOGLOBIN 25.9 pg (29.0-33.0); MEAN CORPUSCULAR HGB CONC 30.4 g/dl (32.0-37.0); MEAN CORPUSCULAR VOLUME 85.1 fl (82.0-101.0); MEAN PLATELET VOLUME 9.1 fl (7.4-10.4); MONOCYTE # 0.6 10^3/ul (0.3-0.9); MONOCYTES % 8.2 % (0.0-11.0); PLATELET COUNT 298 10^3/UL (140-415); RED BLOOD COUNT 3.63 10^6/ul (4.70-6.10); WHITE BLOOD COUNT 6.7 10^3/ul (4.8-10.8)
[2017-01-12 06:43] LABS: INR 1.13; PROTIME 14.5 Sec (12.2-14.2); PT RATIO 1.1
[2017-01-12 06:44] LABS: PARTIAL THROMBOPLASTIN TIME 34.6 Sec (25.0-35.0)
[2017-01-12] MEDS: hydrALAzine 20 MG INJ IV PRN ×2 (06:52→16:34)
[2017-01-12 06:57] LABS: POTASSIUM 4.3 mmol/L (3.5-5.1)
[2017-01-12 07:00] LABS: CREATININE 3.2 mg/dl (0.61-1.24)
[2017-01-12] MEDS ORDERED: EPHEDrine SULFATE 50 MG/5 ML SYG ONE (07:00)
[2017-01-12 07:01] LABS: CALCIUM 7.9 mg/dl (8.4-10.2)
[2017-01-12] MEDS ORDERED: LIDOCAINE 1% (MPF) 30 ML INJ ONE (07:06)
[2017-01-12] MEDS ORDERED: POLYMYXIN/BACITRACIN 1L IRRIG ONE (07:06)
[2017-01-12] MEDS ORDERED: BUPIVACAINE 0.5% (SDV) 30 ML INJ ONE (07:06)
[2017-01-12] MEDS ORDERED: BACITRACIN/POLYMYXIN 28.35 GM OINT TOP ONE (07:06)
--- NOTE | 2017-01-12 07:25 | HPN ---
Date/Time of Note Date/Time of Note DATE: 01/12/17 TIME: 07:24 Interval H&P Admission Note Pt. seen H&P reviewed: No system changes CHINMAY ANNE DPM Jan 12, 2017 07:25
[2017-01-12] MEDS ORDERED: CLINDAMYCIN 900 MG/D5W (PMX) 50 ML IVPB ONE (07:28)
[2017-01-12] MEDS ORDERED: hydrALAzine 20 MG INJ IV PRN (07:30)
[2017-01-12] MEDS ORDERED: MEPERIDINE 25 MG INJ IV PRN (07:30)
[2017-01-12] MEDS ORDERED: LABETALOL HCL 20MG INJ IV PRN (07:30)
[2017-01-12] MEDS ORDERED: DIPHENHYDRAMINE 50 MG INJ IV PRN (07:30)
[2017-01-12] MEDS ORDERED: HYDROmorphONE (0.2 MG/ML) 10ML SYG IV PRN ×2 (07:30)
[2017-01-12] MEDS ORDERED: FENTAnyl 50 MCG/ML VIAL IV PRN (07:30)
[2017-01-12] MEDS ORDERED: INSULIN ASPART [NOVOLOG] 3 ML PEN SC ONE (07:30)
[2017-01-12] MEDS ORDERED: ONDANSETRON 4 MG INJ IV PRN (07:30)
[2017-01-12] MEDS ORDERED: PROCHLORPERAZINE 10 MG INJ IV PRN (07:30)
[2017-01-12] MEDS ORDERED: LIDOCAINE 2% (SDV) 5 ML INJ ONE (07:36)
[2017-01-12] MEDS ORDERED: PROPOFOL 20 ML ONE (07:36)
[2017-01-12] MEDS ORDERED: FENTAnyl 50 MCG/ML VIAL ONE (07:37)
[2017-01-12] MEDS ORDERED: MIDAZOLAM 1 MG/ML 2 ML INJ ONE (07:37)
[2017-01-12] MEDS ORDERED: ONDANSETRON 4 MG INJ ONE (07:45)
[2017-01-12] MEDS ORDERED: METOCLOPRAMIDE 10 MG INJ ONE (07:45)
[2017-01-12] MEDS ORDERED: CEFAZOLIN 1 GM INJ ONE (07:47)
[2017-01-12] MEDS: INSULIN ASPART [NOVOLOG] 3 ML PEN SC SCH ×4 (08:15→20:48)
[2017-01-12] MEDS ORDERED: ACETAMINOPHEN 1000MG/100ML IV 100 ML ONE (08:41)
[2017-01-12] MEDS: ZYVOX 600 MG TAB PO SCH ×2 (10:33→20:52)
[2017-01-12] MEDS: NIFEdipine (XL) 60 MG TAB PO SCH (10:34)
[2017-01-12] MEDS: METOPROLOL (XL) 100 MG TAB PO SCH ×2 (10:34→20:52)
[2017-01-12] MEDS: SOD FERRIC GLUC COMPLX 125 MG in SOD CHLORIDE 0.9% 100 ML IVPB SCH (10:35)
[2017-01-12] MEDS: HEPARIN 5,000 UNIT/0.5 ML VIAL SC SCH ×2 (10:52→20:51)
[2017-01-12] MEDS: MEROPENEM 500 MG/100 ML (PMX) 100 ML IVPB SCH ×2 (12:03→20:53)
--- NOTE | 2017-01-12 12:18 | OPR ---
Date/Time of Note Date/Time of Note DATE: 01/12/17 TIME: 12:18 Operative Report Procedure Date: Jan 12, 2017 Preoperative Diagnosis Necrotic right third toe with gangrenous changes Osteomyelitis of right foot Non pressure ulcer right foot involving bone Peripheral vascular disease Peripheral neuropathy Diabetes mellitus Postoperative Diagnosis Necrotic right third toe with gangrenous changes Osteomyelitis of right foot Non pressure ulcer right foot involving bone Peripheral vascular disease Peripheral neuropathy Diabetes mellitus Operation Performed Surgical debridement and irrigation right foot open wound including epidermis, dermis, soft tissue and bone Right third metatarsal head resection Right third toe amputation Surgeon: CHINMAY ANNE DPM Anesthesia: general Estimated Blood Loss: 0 - 10 ml's Specimens Necrotic bone and soft tissue right foot Gangrenous right third toe Bone culture Complications: None Pt Condition Post Procedure: stable Disposition: PACU Indications This is a pleasant 46 year old male patient with multiple medical problems who has had progressively worsened infection of the right foot involving the third metatarsophalangeal joints. The wound on top the foot communicates with the wound of the bottom with significant amount of necrotic tissue and purulent drainage. Malodor is noted. There is gangrenous changes to the right third toe from the plantar sulcus all the way to the distal aspect just under the toenail. Recommendation was for surgical debridement of necrotic soft tissue and bone of the right foot with amputation of the right third toe. Risks and complications this time surgery was discussed patient in great detail. Risks and complications discussed, include but are not limited to, postoperative infection, postoperative pain, gait disturbance, failure of surgery to correct the problem, need for additional surgical procedures, wound complications, gait disturbance, deep venous thrombosis, limb loss and loss of life. Patient understands risks complications and agrees to the procedure. Informed consent was obtained, signed and placed in the chart. No guarantee or warranty was given or implied as to the outcome of the procedure either verbal or written form. Operative\Procedure Findings Necrotic soft tissue and bone right foot third MPJ both on the dorsal and plantar aspect with complete subluxation of the metatarsophalangeal joint and gangrenous changes to the right third toe. Procedure Description The patient was seen in the preoperative area. Proposed surgery was discussed in great detail. Risks and complications were discussed. An informed consent was obtained. The patient was then and taken to the operating room and was placed on the operating table in the supine position. General anesthesia was given by the anesthesiologist. The right lower extremity was scrubbed prepped and draped in usual aseptic manner. A timeout was called by the circulating nurse. Attention was directed to the right foot third MPJ area where a large open wound was present on the dorsal aspect communicating with another wound on the plantar aspect with significant amount of necrotic and grayish brown soft tissue including tendon and muscle. Bone was exposed proximal phalanx of the third toe with complete subluxation of the toe. There was soft bone present on palpation. There was necrotic tissue present in the plantar aspect of the right third toe with gangrenous changes as well. Surgical debridement continued using a #15 blade, curet, scissors to bleeding soft tissue and bone. A power saw was used to cut the head of the third metatarsal. The head was then removed and passed the back table. A bone culture was obtained. Debridement continued to bleeding subcutaneous tissue. The third toe was amputated at the metatarsophalangeal joint and passed to the back table. All wounds were then flushed with copious metastases of sterile normal saline. I used a #15 blade to freshen up the edge of the plantar wound. Next, an 0 Prolene suture was used for primary closure of the plantar wound of the right foot. Dorsal wound was not amenable to skin closure. Iodoform packing was done and then sterile dressing was applied to the right foot. The patient tolerated procedure and anesthesia well. He was transferred to recovery room with vital signs stable vascular status intact to the remaining right foot. Patient will be followed up in-house postoperatively. Nonweightbearing to continue on the right foot. Prognosis is guarded. CHINMAY ANNE DPM Jan 12, 2017 12:18
--- NOTE | 2017-01-12 13:43 | RADRPT ---
PROCEDURE: XR Right Foot. CLINICAL INDICATION: Right foot pain. TECHNIQUE: Three views. Frontal, lateral, and oblique. COMPARISON: 01/07/2017. FINDINGS: There has been amputation through the distal shaft of the third metatarsal shaft distally. As seen previously, there has been fusion of the second proximal interphalangeal joint with hardware noted. The tarsal bones are intact. Vascular calcifications are present consistent with atherosclerosis. There is no lytic lesion. There are degenerative changes of the first metatarsal phalangeal joint. IMPRESSION: 1. Postoperative changes with amputation through the third metatarsal shaft distally. 2. No other change from 01/07/2017. RPTAT: QQ .Lemuel Newby MD, MD Date Time Electronically viewed and signed by .Lemuel Newby MD, MD on 01/12/2017 13:43 .R/
--- NOTE | 2017-01-12 14:17 | CONS ---
Date/Time of Note Date/Time of Note DATE: 01/12/17 TIME: 14:13 Consult Date/Type/Reason Admit Date/Time Jan 07, 2017 at 12:34 Initial Consult Date 01/08/17 Type of Consultation: neph Subjective SUBJECTIVE: The patient is stable, no acute events overnight. No fevers, chills, nausea, vomiting. sp I&D of osteo of foot. OBJECTIVE: HEENT: Head is normocephalic. NECK: Supple. HEART: Regular rate. LUNGS: Show diminished breath sounds at the base. ABDOMEN: Soft, nontender to palpation. No rebound or guarding. EXTREMITIES: Negative for clubbing, cyanosis. No edema of left leg. Right foot has dressing, it is clean, dry, and intact. NEUROLOGIC: No change in exam. Objective Vital Signs Date Time Temp Pulse Resp B/P Pulse Ox O2 Delivery O2 Flow Rate FiO2 01/12/17 10:55 97.5 66 19 180/82 99 01/12/17 09:47 Room Air Intake and Output 01/11/17 01/11/17 01/12/17 15:00 23:00 07:00 Intake Total 210 ml 980 ml Output Total 2 ml Balance 210 ml 978 ml Results/Medications Result Diagram: 01/12/17 0602 01/12/17 0602 Results 24 hrs Laboratory Tests Test 01/11/17 17:08 01/11/17 21:03 01/12/17 06:02 01/12/17 06:30 Bedside Glucose 233 H 198 146 White Blood Count 6.7 Red Blood Count 3.63 L Hemoglobin 9.4 L Hematocrit 30.9 L Mean Corpuscular Volume 85.1 Mean Corpuscular Hemoglobin 25.9 L Mean Corpuscular Hemoglobin Concent 30.4 L Red Cell Distribution Width 16.0 H Platelet Count 298 Mean Platelet Volume 9.1 Neutrophils % 60.0 Lymphocytes % 26.6 Monocytes % 8.2 Eosinophils % 4.2 Basophils % 0.1 Nucleated Red Blood Cells % 0.0 Neutrophils # 4.0 Lymphocytes # 1.8 Monocytes # 0.6 Eosinophils # 0.3 Basophils # 0.0 Nucleated Red Blood Cells # 0.0 Prothrombin Time 14.5 H Prothrombin Time Ratio 1.1 INR International Normalized Ratio 1.13 Activated Partial Thromboplast Time 34.6 Sodium Level 144 Potassium Level 4.3 Chloride Level 112 H Carbon Dioxide Level 23 Anion Gap 13 # Blood Urea Nitrogen 27 H Creatinine 3.20 H Glucose Level 176 Calcium Level 7.9 L Test 01/12/17 09:06 01/12/17 10:49 01/12/17 12:00 Bedside Glucose 163 149 148 Medications Current Medications Metoprolol Succinate (Toprol Xl) 200 mg BID PO Last administered on 01/12/17 10 :34; Admin Dose 200 MG; Start 01/07/17 at 21:00 Ondansetron HCl (Zofran Inj) 4 mg Q6H PRN IV NAUSEA AND/OR VOMITING; Start 01/07 at 14:00 Acetaminophen (Tylenol Tab) 650 mg Q6H PRN PO PAIN LEVEL 1-3 OR FEVER; Start at 14:00 Acetaminophen (Tylenol Supp) 650 mg Q6H PRN [place] PAIN LEVEL 1-3 OR FEVER; Start 01/07/17 at 14:00 Acetaminophen/ Hydrocodone Bitart ([place] (5/325)) 1 tab Q6H PRN PO MODERATE PAIN LEVEL 4-6; Start 01/07/17 at 14:00 Acetaminophen/ Hydrocodone Bitart ([place] (5/325)) 2 tab Q6H PRN PO SEVERE PAIN LEVEL 7-10; Start 01/07/17 at 14:00 Morphine Sulfate (morphine) 2 mg Q4H PRN IV SEVERE PAIN LEVEL 7-10; Start at 14:00 Docusate Sodium (Colace) 100 mg Q12H PRN PO CONSTIPATION; Start 01/07/17 at 14: 00 Magnesium Hydroxide (Milk Of Mag) 30 ml DAILY PRN PO CONSTIPATION; Start at 14:00 Bisacodyl (Dulcolax Supp) 10 mg DAILY PRN [place] CONSTIPATION; Start 01/07/17 at 14: 00 Heparin Sodium (Porcine) (Heparin (5000 Units/0.5 ml)) 5,000 unit Q12 SC Last administered on 01/12/17 10:52; Admin Dose 5,000 UNIT; Start 01/07/17 at 21:00 Insulin Glargine (Lantus) 10 unit DAILY@20 SC Last administered on 01/11/17 21: 11; Admin Dose 10 UNIT; Start 01/07/17 at 20:00 Miscellaneous Information 1 ea NOTE XX ; Start 01/09/17 at 07:00 Glucose (Glutose) 15 gm Q15M PRN PO DECREASED GLUCOSE; Start 01/09/17 at 07:00 Glucose (Glutose) 22.5 gm Q15M PRN PO DECREASED GLUCOSE; Start 01/09/17 at 07:00 Dextrose (D50w Syringe) 25 ml Q15M PRN IV DECREASED GLUCOSE; Start 01/09/17 at 07:00 Dextrose (D50w Syringe) 50 ml Q15M PRN IV DECREASED GLUCOSE; Start 01/09/17 at 07:00 Glucagon (Glucagen) 1 mg Q15M PRN IM DECREASED GLUCOSE; Start 01/09/17 at 07:00 Glucose (Glutose) 15 gm Q15M PRN BUCCAL DECREASED GLUCOSE; Start 01/09/17 at 07: 00 Pantoprazole (Protonix Tab) 40 mg DAILY@06 PO Last administered on 01/11/17 05: 36; Admin Dose 40 MG; Start 01/10/17 at 06:00 Linezolid 600 mg 600 mg BID PO Last administered on 01/12/17 10:33; Admin Dose 600 MG; Start 01/09/17 at 21:00 Meropenem (Merrem 500 Mg/ 100 ml (Pmx)) 100 ml @ 200 mls/hr Q12 IVPB Last administered on 01/12/17 12:03; Admin Dose 200 MLS/HR; Start 01/09/17 at 21:00 Hydralazine HCl (Apresoline) 10 mg Q4H PRN IV SBP > 160 Last administered on 06:52; Admin Dose 10 MG; Start 01/10/17 at 08:30 Clonidine (Catapres) 0.1 mg Q6H PRN PO sbp>150 Last administered on 01/11/17 17 :14; Admin Dose 0.1 MG; Start 01/11/17 at 16:00 Nifedipine (Procardia Xl) 60 mg DAILY PO Last administered on 01/12/17 10:34; Admin Dose 60 MG; Start 01/12/17 at 09:00 Assessment/Plan Chief Complaint/Hosp Course ASSESSMENT AND PLAN: 1. Nonoliguric acute kidney injury on top of chronic kidney disease stage IIIB/ IV, with a previous EGFR of around 30 mL per minute. Etiology of acute kidney injury is multifactorial, secondary to hemodynamics, possible sepsis. The patient's renal function appears to be slowly improving. Continue current treatment plan. Supportive care, renally dose all medications, avoid nephrotoxins. mild azotemia of unclear significance. if continues to worsen, will recheck ultrasound and urine studies. all meds dosed ok 2. Chronic kidney disease, stage IIIB/IV with nephrotic range proteinuria. Etiology is likely secondary to diabetic nephropathy. The patient currently in acute kidney injury as stated above. Continue disease factor modification with good glycemic and blood pressure control. 3. Mineral bone disorder. Continue to monitor calcium and phosphorus levels. Defer phosphate binders. 4. Anemia, with component of iron deficiency. The patient is on IV iron, continue. Continue Epogen. 5. Metabolic acidosis secondary to acute kidney injury. Continue to monitor. 6. Diabetes. Continue current insulin regimen. 7. Sepsis secondary to right foot osteomyelitis. Continue current antibiotic regimen. Follow up with podiatry. The patient is status post incision and drainage. Follow up with infectious disease. 8. Hypertension. Continue current blood pressure regimen. Continue pain control. Problems: CROW JASMINE MD Jan 12, 2017 14:17
--- NOTE | 2017-01-12 15:12 | PN ---
DATE: 01/12/2017 SUBJECTIVE: No acute events. The patient is lying comfortably in bed. No fevers. MICROBIOLOGY: Wound culture growing strep species and Corynebacterium group JK. ANTIMICROBIALS: 1. Meropenem. 2. Zyvox. PHYSICAL EXAMINATION: GENERAL: Well-developed, middle-aged man in no distress. HEENT: Head atraumatic, normocephalic. Sclerae anicteric. Buccal mucosa pink. NECK: Supple. CHEST: Rise symmetrical. Breath sounds clear. HEART: S1, S2. ABDOMEN: Soft. Bowel sounds present. EXTREMITIES: With right foot dressing intact. ASSESSMENT: 1. Right foot cellulitis, osteomyelitis and abscess, status post incision and drainage with toe am putation. 2. Acute renal failure. 3. Diabetes. PLAN: The patient remains stable. We are going to discontinue meropenem, keep him on Zyvox. Juan José nue local wound care as per podiatry recommendations. The patient most likely will require long-ter m IV antibiotics or possibly oral Zyvox if insurance approves. We will discuss with Dr. Beltran. Dictated By: JESUS PAYAN [employer]ILINGS MAN for JONNY MONREAL/HILDA Conf#: [id number] DID#: [id number]
--- NOTE | 2017-01-12 20:20 | PN ---
Date/Time of Note Date/Time of Note DATE: 01/12/17 TIME: 20:16 Assessment/Plan VTE Prophylaxis VTE Prophylaxis Intervention: heparin Lines/Catheters IV Catheter Type (from Nrsg): Saline Lock Assessment/Plan Assessment/Plan 1. Sepsis secondary to Right foot osteomyelitis, S/p I & D and Right 3rd toe amputation by podiatry on 01/12/17 2. Nonoliguric acute kidney injury on top of chronic kidney disease stage III/ IV 3. Chronic kidney disease, stage III/IV with nephrotic range proteinuria, likely due to diabetic nephropathy. 4. Diabetes type II, poorly controlled 5. accelerated HTN- with SBP in 190s plan: S/p I & D and Right 3rd toe amputation by podiatry on 01/12/17 change clonidine to Q 6 hr, continue Metoprolol on procardia XL 60mg PO daily for better BP control use Hydralazine IV prn IV abx as per ID heparin for DVT prophylaxis Subjective 24 Hr Interval Summary Free Text/Dictation s/p Podiatry surgery today, afebrile, BP stable Exam/Review of Systems Vital Signs Vitals Vital Signs Date Time Temp Pulse Resp B/P Pulse Ox O2 Delivery O2 Flow Rate FiO2 01/12/17 19:35 98.0 70 20 151/70 98 01/12/17 09:47 Room Air Intake and Output 01/11/17 01/11/17 01/12/17 15:00 23:00 07:00 Intake Total 210 ml 980 ml Output Total 2 ml Balance 210 ml 978 ml Exam HEENT: Head atraumatic, normocephalic. Sclerae anicteric. Buccal mucosa pink. NECK: Supple. CHEST: Rise symmetrical. Breath sounds clear. HEART: S1, S2. ABDOMEN: Soft. Bowel tones present. EXTREMITIES: With right foot dressing intact. Results Result Diagram: 01/12/17 0602 01/12/17 0602 Results 24 hrs Laboratory Tests Test 01/11/17 21:03 01/12/17 06:02 01/12/17 06:30 01/12/17 09:06 Bedside Glucose 198 146 163 White Blood Count 6.7 Red Blood Count 3.63 L Hemoglobin 9.4 L Hematocrit 30.9 L Mean Corpuscular Volume 85.1 Mean Corpuscular Hemoglobin 25.9 L Mean Corpuscular Hemoglobin Concent 30.4 L Red Cell Distribution Width 16.0 H Platelet Count 298 Mean Platelet Volume 9.1 Neutrophils % 60.0 Lymphocytes % 26.6 Monocytes % 8.2 Eosinophils % 4.2 Basophils % 0.1 Nucleated Red Blood Cells % 0.0 Neutrophils # 4.0 Lymphocytes # 1.8 Monocytes # 0.6 Eosinophils # 0.3 Basophils # 0.0 Nucleated Red Blood Cells # 0.0 Prothrombin Time 14.5 H Prothrombin Time Ratio 1.1 INR International Normalized Ratio 1.13 Activated Partial Thromboplast Time 34.6 Sodium Level 144 Potassium Level 4.3 Chloride Level 112 H Carbon Dioxide Level 23 Anion Gap 13 # Blood Urea Nitrogen 27 H Creatinine 3.20 H Glucose Level 176 Calcium Level 7.9 L Test 01/12/17 10:49 01/12/17 12:00 01/12/17 17:36 Bedside Glucose 149 148 192 Medications Medications Current Medications Metoprolol Succinate (Toprol Xl) 200 mg BID PO Last administered on 01/12/17 10 :34; Admin Dose 200 MG; Start 01/07/17 at 21:00 Ondansetron HCl (Zofran Inj) 4 mg Q6H PRN IV NAUSEA AND/OR VOMITING; Start 01/07 at 14:00 Acetaminophen (Tylenol Tab) 650 mg Q6H PRN PO PAIN LEVEL 1-3 OR FEVER Last administered on 01/12/17 18:37; Admin Dose 650 MG; Start 01/07/17 at 14:00 Acetaminophen (Tylenol Supp) 650 mg Q6H PRN [place] PAIN LEVEL 1-3 OR FEVER; Start 01/07/17 at 14:00 Acetaminophen/ Hydrocodone Bitart ([place] (5/325)) 1 tab Q6H PRN PO MODERATE PAIN LEVEL 4-6; Start 01/07/17 at 14:00 Acetaminophen/ Hydrocodone Bitart ([place] (5/325)) 2 tab Q6H PRN PO SEVERE PAIN LEVEL 7-10; Start 01/07/17 at 14:00 Morphine Sulfate (morphine) 2 mg Q4H PRN IV SEVERE PAIN LEVEL 7-10; Start at 14:00 Docusate Sodium (Colace) 100 mg Q12H PRN PO CONSTIPATION; Start 01/07/17 at 14: 00 Magnesium Hydroxide (Milk Of Mag) 30 ml DAILY PRN PO CONSTIPATION; Start at 14:00 Bisacodyl (Dulcolax Supp) 10 mg DAILY PRN [place] CONSTIPATION; Start 01/07/17 at 14: 00 Heparin Sodium (Porcine) (Heparin (5000 Units/0.5 ml)) 5,000 unit Q12 SC Last administered on 01/12/17 10:52; Admin Dose 5,000 UNIT; Start 01/07/17 at 21:00 Insulin Glargine (Lantus) 10 unit DAILY@20 SC Last administered on 01/11/17 21: 11; Admin Dose 10 UNIT; Start 01/07/17 at 20:00 Miscellaneous Information 1 ea NOTE XX ; Start 01/09/17 at 07:00 Glucose (Glutose) 15 gm Q15M PRN PO DECREASED GLUCOSE; Start 01/09/17 at 07:00 Glucose (Glutose) 22.5 gm Q15M PRN PO DECREASED GLUCOSE; Start 01/09/17 at 07:00 Dextrose (D50w Syringe) 25 ml Q15M PRN IV DECREASED GLUCOSE; Start 01/09/17 at 07:00 Dextrose (D50w Syringe) 50 ml Q15M PRN IV DECREASED GLUCOSE; Start 01/09/17 at 07:00 Glucagon (Glucagen) 1 mg Q15M PRN IM DECREASED GLUCOSE; Start 01/09/17 at 07:00 Glucose (Glutose) 15 gm Q15M PRN BUCCAL DECREASED GLUCOSE; Start 01/09/17 at 07: 00 Pantoprazole (Protonix Tab) 40 mg DAILY@06 PO Last administered on 01/11/17 05: 36; Admin Dose 40 MG; Start 01/10/17 at 06:00 Linezolid 600 mg 600 mg BID PO Last administered on 01/12/17 10:33; Admin Dose 600 MG; Start 01/09/17 at 21:00 Meropenem (Merrem 500 Mg/ 100 ml (Pmx)) 100 ml @ 200 mls/hr Q12 IVPB Last administered on 01/12/17 12:03; Admin Dose 200 MLS/HR; Start 01/09/17 at 21:00 Hydralazine HCl (Apresoline) 10 mg Q4H PRN IV SBP > 160 Last administered on 16:34; Admin Dose 10 MG; Start 01/10/17 at 08:30 Clonidine (Catapres) 0.1 mg Q6H PRN PO sbp>150 Last administered on 01/12/17 18 :39; Admin Dose 0.1 MG; Start 01/11/17 at 16:00 Nifedipine (Procardia Xl) 60 mg DAILY PO Last administered on 01/12/17 10:34; Admin Dose 60 MG; Start 01/12/17 at 09:00 BETTY OLIVARES MD Jan 12, 2017 20:20
[2017-01-12] MEDS: INSULIN GLARGINE [LANtus] 3 ML PEN SC SCH (20:50)
[2017-01-13] VITALS (7 sets, daily range): BP systolic 127–188; BP diastolic 63–83; PULSE 66–77; RESP 18
[2017-01-13] MEDS: PANTOPRAZOLE (EC) 40 MG TAB PO SCH (05:34)
[2017-01-13] MEDS: INSULIN ASPART [NOVOLOG] 3 ML PEN SC SCH ×4 (08:15→20:59)
[2017-01-13] MEDS: ZYVOX 600 MG TAB PO SCH ×2 (09:41→20:53)
[2017-01-13] MEDS: NIFEdipine (XL) 60 MG TAB PO SCH (09:42)
[2017-01-13] MEDS: METOPROLOL (XL) 100 MG TAB PO SCH ×2 (09:42→20:54)
[2017-01-13] MEDS: HEPARIN 5,000 UNIT/0.5 ML VIAL SC SCH ×2 (10:05→21:00)
[2017-01-13] MEDS: hydrALAzine 20 MG INJ IV PRN (12:44)
--- NOTE | 2017-01-13 12:50 | PN ---
Date/Time of Note Date/Time of Note DATE: 01/13/17 TIME: 12:48 Assessment/Plan VTE Prophylaxis VTE Prophylaxis Intervention: heparin Lines/Catheters IV Catheter Type (from Nrsg): Saline Lock Assessment/Plan Assessment/Plan 1. Sepsis secondary to Right foot osteomyelitis, S/p I & D and Right 3rd toe amputation by podiatry on 01/12/17 2. Nonoliguric acute kidney injury on top of chronic kidney disease stage III/ IV 3. Chronic kidney disease, stage III/IV with nephrotic range proteinuria, likely due to diabetic nephropathy. 4. Diabetes type II, poorly controlled 5. accelerated HTN- with SBP in 190s plan: S/p I & D and Right 3rd toe amputation by podiatry on 01/12/17 change clonidine to Q 6 hr prn , continue Metoprolol on procardia XL 60mg PO daily for better BP control use Hydralazine IV prn IV abx as per ID- to decide about discharge Abx plan heparin for DVT prophylaxis PICC line planned for today Subjective 24 Hr Interval Summary Free Text/Dictation c/o right foot pain, as per ID pt will need rn long term care IV abx or zyvox PO Exam/Review of Systems Vital Signs Vitals Vital Signs Date Time Temp Pulse Resp B/P Pulse Ox O2 Delivery O2 Flow Rate FiO2 01/13/17 08:00 98.1 73 18 156/74 97 01/13/17 04:56 Room Air Intake and Output 01/12/17 01/12/17 01/13/17 15:00 23:00 07:00 Intake Total 650 ml 770 ml 240 ml Output Total 2 ml Balance 648 ml 770 ml 240 ml Exam HEENT: Head atraumatic, normocephalic. Sclerae anicteric. Buccal mucosa pink. NECK: Supple. CHEST: Rise symmetrical. Breath sounds clear. HEART: S1, S2. ABDOMEN: Soft. Bowel tones present. EXTREMITIES: With right foot dressing intact. Results Result Diagram: 01/12/17 0602 01/12/17 0602 Results 24 hrs Laboratory Tests Test 01/12/17 17:36 01/12/17 20:43 01/12/17 22:48 01/13/17 08:30 Bedside Glucose 192 194 181 113 Test 01/13/17 12:09 Bedside Glucose 166 Medications Medications Current Medications Metoprolol Succinate (Toprol Xl) 200 mg BID PO Last administered on 01/13/17 09 :42; Admin Dose 200 MG; Start 01/07/17 at 21:00 Ondansetron HCl (Zofran Inj) 4 mg Q6H PRN IV NAUSEA AND/OR VOMITING; Start 01/07 at 14:00 Acetaminophen (Tylenol Tab) 650 mg Q6H PRN PO PAIN LEVEL 1-3 OR FEVER Last administered on 01/12/17 18:37; Admin Dose 650 MG; Start 01/07/17 at 14:00 Acetaminophen (Tylenol Supp) 650 mg Q6H PRN [place] PAIN LEVEL 1-3 OR FEVER; Start 01/07/17 at 14:00 Acetaminophen/ Hydrocodone Bitart ([place] (5/325)) 1 tab Q6H PRN PO MODERATE PAIN LEVEL 4-6; Start 01/07/17 at 14:00 Acetaminophen/ Hydrocodone Bitart ([place] (5/325)) 2 tab Q6H PRN PO SEVERE PAIN LEVEL 7-10; Start 01/07/17 at 14:00 Morphine Sulfate (morphine) 2 mg Q4H PRN IV SEVERE PAIN LEVEL 7-10; Start at 14:00 Docusate Sodium (Colace) 100 mg Q12H PRN PO CONSTIPATION; Start 01/07/17 at 14: 00 Magnesium Hydroxide (Milk Of Mag) 30 ml DAILY PRN PO CONSTIPATION; Start at 14:00 Bisacodyl (Dulcolax Supp) 10 mg DAILY PRN [place] CONSTIPATION; Start 01/07/17 at 14: 00 Heparin Sodium (Porcine) (Heparin (5000 Units/0.5 ml)) 5,000 unit Q12 SC Last administered on 01/13/17 10:05; Admin Dose 5,000 UNIT; Start 01/07/17 at 21:00 Insulin Glargine (Lantus) 10 unit DAILY@20 SC Last administered on 01/12/17 20: 50; Admin Dose 10 UNIT; Start 01/07/17 at 20:00 Miscellaneous Information 1 ea NOTE XX ; Start 01/09/17 at 07:00 Glucose (Glutose) 15 gm Q15M PRN PO DECREASED GLUCOSE; Start 01/09/17 at 07:00 Glucose (Glutose) 22.5 gm Q15M PRN PO DECREASED GLUCOSE; Start 01/09/17 at 07:00 Dextrose (D50w Syringe) 25 ml Q15M PRN IV DECREASED GLUCOSE; Start 01/09/17 at 07:00 Dextrose (D50w Syringe) 50 ml Q15M PRN IV DECREASED GLUCOSE; Start 01/09/17 at 07:00 Glucagon (Glucagen) 1 mg Q15M PRN IM DECREASED GLUCOSE; Start 01/09/17 at 07:00 Glucose (Glutose) 15 gm Q15M PRN BUCCAL DECREASED GLUCOSE; Start 01/09/17 at 07: 00 Pantoprazole (Protonix Tab) 40 mg DAILY@06 PO Last administered on 01/13/17 05: 34; Admin Dose 40 MG; Start 01/10/17 at 06:00 Linezolid (Zyvox) 600 mg BID PO Last administered on 01/13/17 09:41; Admin Dose 600 MG; Start 01/09/17 at 21:00 Hydralazine HCl (Apresoline) 10 mg Q4H PRN IV SBP > 160 Last administered on 16:34; Admin Dose 10 MG; Start 01/10/17 at 08:30 Clonidine (Catapres) 0.1 mg Q6H PRN PO sbp>150 Last administered on 01/13/17 00 :11; Admin Dose 0.1 MG; Start 01/11/17 at 16:00 Nifedipine (Procardia Xl) 60 mg DAILY PO Last administered on 01/13/17 09:42; Admin Dose 60 MG; Start 01/12/17 at 09:00 BETTY OLIVARES MD Jan 13, 2017 12:50
--- NOTE | 2017-01-13 14:08 | PN ---
Date/Time of Note Date/Time of Note DATE: 01/13/17 TIME: 14:06 Assessment/Plan VTE Prophylaxis VTE Prophylaxis Intervention: other Lines/Catheters [facility] Saline Lock Assessment/Plan Assessment/Plan 1. Nonoliguric acute kidney injury on top of chronic kidney disease stage IIIB/ IV, with a previous EGFR of around 30 mL per minute. Etiology of acute kidney injury is multifactorial, secondary to hemodynamics, possible sepsis. The patient's renal function appears to be slowly improving. Continue current treatment plan. Supportive care, renally dose all medications, avoid nephrotoxins. mild azotemia of unclear significance. all meds dosed ok 2. Chronic kidney disease, stage IIIB/IV with nephrotic range proteinuria. Etiology is likely secondary to diabetic nephropathy. The patient currently in acute kidney injury as stated above. Continue disease factor modification with good glycemic and blood pressure control. 3. Mineral bone disorder. Continue to monitor calcium and phosphorus levels. Defer phosphate binders. 4. Anemia, with component of iron deficiency. The patient is on IV iron, continue. Continue Epogen. 5. Metabolic acidosis secondary to acute kidney injury. Continue to monitor. 6. Diabetes. Continue current insulin regimen. 7. Sepsis secondary to right foot osteomyelitis. Continue current antibiotic regimen. Follow up with podiatry. The patient is status post incision and drainage. Follow up with infectious disease. 8. Hypertension. Continue current blood pressure regimen. Continue pain control. Subjective 24 Hr Interval Summary Free Text/Dictation nephrology follow up SUBJECTIVE: The patient is stable, no acute events overnight. No fevers, chills, nausea, vomiting. sp I&D of osteo of foot. OBJECTIVE: HEENT: Head is normocephalic. NECK: Supple. HEART: Regular rate. LUNGS: Show diminished breath sounds at the base. ABDOMEN: Soft, nontender to palpation. No rebound or guarding. EXTREMITIES: Negative for clubbing, cyanosis. No edema of left leg. Right foot has dressing, it is clean, dry, and intact. NEUROLOGIC: No change in exam. Exam/Review of Systems Vital Signs Vitals Vital Signs Date Time Temp Pulse Resp B/P Pulse Ox O2 Delivery O2 Flow Rate FiO2 01/13/17 08:00 98.1 73 18 156/74 97 01/13/17 04:56 Room Air Intake and Output 01/12/17 01/12/17 01/13/17 15:00 23:00 07:00 Intake Total 650 ml 770 ml 240 ml Output Total 2 ml Balance 648 ml 770 ml 240 ml Results Result Diagram: 01/12/17 0601/12/17 0602 Results 24 hrs Laboratory Tests Test 01/12/17 17:36 01/12/17 20:43 01/12/17 22:48 01/13/17 08:30 Bedside Glucose 192 194 181 113 Test 01/13/17 12:09 Bedside Glucose 166 Medications Medications Current Medications Metoprolol Succinate (Toprol Xl) 200 mg BID PO Last administered on 01/13/17 09 :42; Admin Dose 200 MG; Start 01/07/17 at 21:00 Ondansetron HCl (Zofran Inj) 4 mg Q6H PRN IV NAUSEA AND/OR VOMITING; Start 01/07 at 14:00 Acetaminophen (Tylenol Tab) 650 mg Q6H PRN PO PAIN LEVEL 1-3 OR FEVER Last administered on 01/12/17 18:37; Admin Dose 650 MG; Start 01/07/17 at 14:00 Acetaminophen (Tylenol Supp) 650 mg Q6H PRN [place] PAIN LEVEL 1-3 OR FEVER; Start 01/07/17 at 14:00 Acetaminophen/ Hydrocodone Bitart ([place] (5/325)) 1 tab Q6H PRN PO MODERATE PAIN LEVEL 4-6; Start 01/07/17 at 14:00 Acetaminophen/ Hydrocodone Bitart ([place] (5/325)) 2 tab Q6H PRN PO SEVERE PAIN LEVEL 7-10; Start 01/07/17 at 14:00 Morphine Sulfate (morphine) 2 mg Q4H PRN IV SEVERE PAIN LEVEL 7-10; Start at 14:00 Docusate Sodium (Colace) 100 mg Q12H PRN PO CONSTIPATION; Start 01/07/17 at 14: 00 Magnesium Hydroxide (Milk Of Mag) 30 ml DAILY PRN PO CONSTIPATION; Start at 14:00 Bisacodyl (Dulcolax Supp) 10 mg DAILY PRN [place] CONSTIPATION; Start 01/07/17 at 14: 00 Heparin Sodium (Porcine) (Heparin (5000 Units/0.5 ml)) 5,000 unit Q12 SC Last administered on 01/13/17 10:05; Admin Dose 5,000 UNIT; Start 01/07/17 at 21:00 Insulin Glargine (Lantus) 10 unit DAILY@20 SC Last administered on 01/12/17 20: 50; Admin Dose 10 UNIT; Start 01/07/17 at 20:00 Miscellaneous Information 1 ea NOTE XX ; Start 01/09/17 at 07:00 Glucose (Glutose) 15 gm Q15M PRN PO DECREASED GLUCOSE; Start 01/09/17 at 07:00 Glucose (Glutose) 22.5 gm Q15M PRN PO DECREASED GLUCOSE; Start 01/09/17 at 07:00 Dextrose (D50w Syringe) 25 ml Q15M PRN IV DECREASED GLUCOSE; Start 01/09/17 at 07:00 Dextrose (D50w Syringe) 50 ml Q15M PRN IV DECREASED GLUCOSE; Start 01/09/17 at 07:00 Glucagon (Glucagen) 1 mg Q15M PRN IM DECREASED GLUCOSE; Start 01/09/17 at 07:00 Glucose (Glutose) 15 gm Q15M PRN BUCCAL DECREASED GLUCOSE; Start 01/09/17 at 07: 00 Pantoprazole (Protonix Tab) 40 mg DAILY@06 PO Last administered on 01/13/17 05: 34; Admin Dose 40 MG; Start 01/10/17 at 06:00 Linezolid (Zyvox) 600 mg BID PO Last administered on 01/13/17 09:41; Admin Dose 600 MG; Start 01/09/17 at 21:00 Hydralazine HCl (Apresoline) 10 mg Q4H PRN IV SBP > 160 Last administered on 12:44; Admin Dose 10 MG; Start 01/10/17 at 08:30 Clonidine (Catapres) 0.1 mg Q6H PRN PO sbp>150 Last administered on 01/13/17 00 :11; Admin Dose 0.1 MG; Start 01/11/17 at 16:00 Nifedipine (Procardia Xl) 60 mg DAILY PO Last administered on 01/13/17 09:42; Admin Dose 60 MG; Start 01/12/17 at 09:00 MELONY AYALA DO Jan 13, 2017 14:08
--- NOTE | 2017-01-13 15:03 | CONS ---
Date/Time of Note Date/Time of Note DATE: 01/13/17 TIME: 15:02 Assessment/Plan Assessment/Plan Chief Complaint/Hosp Course SUBJECTIVE: No acute events. The patient is lying comfortably in bed. No fevers. MICROBIOLOGY: Wound culture growing strep species and Corynebacterium group JK. ANTIMICROBIALS: Zyvox. PHYSICAL EXAMINATION: GENERAL: Well-developed, middle-aged man in no distress. HEENT: Head atraumatic, normocephalic. Sclerae anicteric. Buccal mucosa pink. NECK: Supple. CHEST: Rise symmetrical. Breath sounds clear. HEART: S1, S2. ABDOMEN: Soft. Bowel sounds present. EXTREMITIES: With right foot dressing intact. ASSESSMENT: 1. Right foot cellulitis, osteomyelitis and abscess, status post incision and drainage with toe amputation. 2. Acute renal failure. 3. Diabetes. PLAN: The patient remains stable. Continue abx/local wound care as per podiatry recommendations. The patient most likely will require long-term IV antibiotics or possibly oral Zyvox if insurance approves. DW Dr Pro/pt Problems: Consultation Date/Type/Reason Admit Date/Time Jan 07, 2017 at 12:34 Initial Consult Date 01/08/17 Type of Consultation: ID Exam/Review of Systems Vital Signs Vitals Vital Signs Date Time Temp Pulse Resp B/P Pulse Ox O2 Delivery O2 Flow Rate FiO2 01/13/17 08:00 98.1 73 18 156/74 97 01/13/17 04:56 Room Air Intake and Output 01/12/17 01/12/17 01/13/17 15:00 23:00 07:00 Intake Total 650 ml 770 ml 240 ml Output Total 2 ml Balance 648 ml 770 ml 240 ml Results Result Diagram: 01/12/17 0602 01/12/17 0602 Results 24 hrs Laboratory Tests Test 01/12/17 17:36 01/12/17 20:43 01/12/17 22:48 01/13/17 08:30 Bedside Glucose 192 194 181 113 Test 01/13/17 12:09 Bedside Glucose 166 Medications Medications Current Medications Metoprolol Succinate (Toprol Xl) 200 mg BID PO Last administered on 01/13/17t 09 :42; Admin Dose 200 MG; Start 01/07/17 at 21:00 Ondansetron HCl (Zofran Inj) 4 mg Q6H PRN IV NAUSEA AND/OR VOMITING; Start 01/07 at 14:00 Acetaminophen (Tylenol Tab) 650 mg Q6H PRN PO PAIN LEVEL 1-3 OR FEVER Last administered on 01/12/17 18:37; Admin Dose 650 MG; Start 01/07/17 at 14:00 Acetaminophen (Tylenol Supp) 650 mg Q6H PRN [place] PAIN LEVEL 1-3 OR FEVER; Start 01/07/17 at 14:00 Acetaminophen/ Hydrocodone Bitart ([place] (5/325)) 1 tab Q6H PRN PO MODERATE PAIN LEVEL 4-6; Start 01/07/17 at 14:00 Acetaminophen/ Hydrocodone Bitart ([place] (5/325)) 2 tab Q6H PRN PO SEVERE PAIN LEVEL 7-10; Start 01/07/17 at 14:00 Morphine Sulfate (morphine) 2 mg Q4H PRN IV SEVERE PAIN LEVEL 7-10; Start at 14:00 Docusate Sodium (Colace) 100 mg Q12H PRN PO CONSTIPATION; Start 01/07/17 at 14: 00 Magnesium Hydroxide (Milk Of Mag) 30 ml DAILY PRN PO CONSTIPATION; Start at 14:00 Bisacodyl (Dulcolax Supp) 10 mg DAILY PRN [place] CONSTIPATION; Start 01/07/17 at 14: 00 Heparin Sodium (Porcine) (Heparin (5000 Units/0.5 ml)) 5,000 unit Q12 SC Last administered on 01/13/17 10:05; Admin Dose 5,000 UNIT; Start 01/07/17 at 21:00 Insulin Glargine (Lantus) 10 unit DAILY@20 SC Last administered on 01/12/17 20: 50; Admin Dose 10 UNIT; Start 01/07/17 at 20:00 Miscellaneous Information 1 ea NOTE XX ; Start 01/09/17 at 07:00 Glucose (Glutose) 15 gm Q15M PRN PO DECREASED GLUCOSE; Start 01/09/17 at 07:00 Glucose (Glutose) 22.5 gm Q15M PRN PO DECREASED GLUCOSE; Start 01/09/17 at 07:00 Dextrose (D50w Syringe) 25 ml Q15M PRN IV DECREASED GLUCOSE; Start 01/09/17 at 07:00 Dextrose (D50w Syringe) 50 ml Q15M PRN IV DECREASED GLUCOSE; Start 01/09/17 at 07:00 Glucagon (Glucagen) 1 mg Q15M PRN IM DECREASED GLUCOSE; Start 01/09/17 at 07:00 Glucose (Glutose) 15 gm Q15M PRN BUCCAL DECREASED GLUCOSE; Start 01/09/17 at 07: 00 Pantoprazole (Protonix Tab) 40 mg DAILY@06 PO Last administered on 01/13/17 05: 34; Admin Dose 40 MG; Start 01/10/17 at 06:00 Linezolid (Zyvox) 600 mg BID PO Last administered on 01/13/17 09:41; Admin Dose 600 MG; Start 01/09/17 at 21:00 Hydralazine HCl (Apresoline) 10 mg Q4H PRN IV SBP > 160 Last administered on 12:44; Admin Dose 10 MG; Start 01/10/17 at 08:30 Clonidine (Catapres) 0.1 mg Q6H PRN PO sbp>150 Last administered on 01/13/17 00 :11; Admin Dose 0.1 MG; Start 01/11/17 at 16:00 Nifedipine (Procardia Xl) 60 mg DAILY PO Last administered on 01/13/17 09:42; Admin Dose 60 MG; Start 01/12/17 at 09:00 JESUS PAYAN NP Jan 13, 2017 15:03
[2017-01-13] MEDS: INSULIN GLARGINE [LANtus] 3 ML PEN SC SCH (21:00)
[2017-01-14] VITALS (7 sets, daily range): BP systolic 154–194; BP diastolic 67–88; PULSE 65–70; RESP 18
[2017-01-14] MEDS: PANTOPRAZOLE (EC) 40 MG TAB PO SCH (05:48)
[2017-01-14] MEDS: INSULIN ASPART [NOVOLOG] 3 ML PEN SC SCH ×4 (07:51→21:03)
[2017-01-14] MEDS: ZYVOX 600 MG TAB PO SCH (09:18)
[2017-01-14] MEDS: METOPROLOL (XL) 100 MG TAB PO SCH ×2 (09:18→20:58)
[2017-01-14] MEDS: NIFEdipine (XL) 60 MG TAB PO SCH (09:19)
[2017-01-14] MEDS: HEPARIN 5,000 UNIT/0.5 ML VIAL SC SCH ×2 (09:37→21:05)
--- NOTE | 2017-01-14 10:13 | PN ---
Date/Time of Note Date/Time of Note DATE: 01/14/17 TIME: 10:01 Assessment/Plan VTE Prophylaxis VTE Prophylaxis Intervention: ambulation Lines/Catheters IV Catheter Type (from [facility]): [place] Assessment/Plan Chief Complaint/Hosp Course Assessment/Plan 1. Sepsis secondary to Right foot osteomyelitis, S/p I & D and Right 3rd toe amputation by podiatry on 01/12/17 2. Nonoliguric acute kidney injury on top of chronic kidney disease stage III/ IV 3. Chronic kidney disease, stage III/IV with nephrotic range proteinuria, likely due to diabetic nephropathy. 4. Diabetes type II, poorly controlled 5. accelerated HTN- with SBP in 190s plan: 1. S/p I & D and Right 3rd toe amputation by podiatry on 01/12/17 await podiatry recommendations prior to discharge 2. PICC line placement and then IV antibiotics for 6 weeks per infectious disease recommendations 3. Blood pressure management 4. Renal recommendations regarding chronic kidney disease 5. Anticipate discharge tomorrow Problems: Subjective 24 Hr Interval Summary Free Text/Dictation Patient comfortable this morning no new events Exam/Review of Systems Vital Signs Vitals Vital Signs Date Time Temp Pulse Resp B/P Pulse Ox O2 Delivery O2 Flow Rate FiO2 01/14/17 09:24 69 187/83 01/14/17 08:14 97.8 18 98 01/13/17 20:00 Room Air Intake and Output 01/13/17 01/13/17 01/14/17 15:00 23:00 07:00 Intake Total 1440 ml 200 ml Balance 1440 ml 200 ml Exam GENERAL: Well-nourished well-developed gentleman comfortable at rest no acute distress VITAL SIGNS: per chart NECK: Supple. No JVD or lymphadenopathy. CARDIAC EXAM: S1, S2. No added sounds or murmurs. CHEST: clear bilaterally, No added sounds, rales or wheezes ABDOMEN: Soft, nontender. No guarding or rebound. EXTREMITIES: No cyanosis, clubbing or lower extremity dressings NEUROLOGIC: Generalized weakness. No focal deficits. Results Result Diagram: 01/12/17 0602 01/12/17 0602 Results 24 hrs Laboratory Tests Test 01/13/17 12:09 01/13/17 17:34 01/13/17 20:51 01/14/17 02:21 Bedside Glucose 166 173 208 157 Test 01/14/17 07:45 Bedside Glucose 103 Medications Medications Current Medications Metoprolol Succinate (Toprol Xl) 200 mg BID PO Last administered on 01/14/17 09 :18; Admin Dose 200 MG; Start 01/07/17 at 21:00 Ondansetron HCl (Zofran Inj) 4 mg Q6H PRN IV NAUSEA AND/OR VOMITING; Start 01/07 at 14:00 Acetaminophen (Tylenol Tab) 650 mg Q6H PRN PO PAIN LEVEL 1-3 OR FEVER Last administered on 01/12/17 18:37; Admin Dose 650 MG; Start 01/07/17 at 14:00 Acetaminophen (Tylenol Supp) 650 mg Q6H PRN [place] PAIN LEVEL 1-3 OR FEVER; Start 01/07/17 at 14:00 Acetaminophen/ Hydrocodone Bitart ([place] (5/325)) 1 tab Q6H PRN PO MODERATE PAIN LEVEL 4-6; Start 01/07/17 at 14:00 Acetaminophen/ Hydrocodone Bitart ([place] (5/325)) 2 tab Q6H PRN PO SEVERE PAIN LEVEL 7-10; Start 01/07/17 at 14:00 Morphine Sulfate (morphine) 2 mg Q4H PRN IV SEVERE PAIN LEVEL 7-10; Start at 14:00 Docusate Sodium (Colace) 100 mg Q12H PRN PO CONSTIPATION; Start 01/07/17 at 14: 00 Magnesium Hydroxide (Milk Of Mag) 30 ml DAILY PRN PO CONSTIPATION; Start at 14:00 Bisacodyl (Dulcolax Supp) 10 mg DAILY PRN [place] CONSTIPATION; Start 01/07/17 at 14: 00 Heparin Sodium (Porcine) (Heparin (5000 Units/0.5 ml)) 5,000 unit Q12 SC Last administered on 01/14/17 09:37; Admin Dose 5,000 UNIT; Start 01/07/17 at 21:00 Insulin Glargine (Lantus) 10 unit DAILY@20 SC Last administered on 01/13/17 21: 00; Admin Dose 10 UNIT; Start 01/07/17 at 20:00 Miscellaneous Information 1 ea NOTE XX ; Start 01/09/17 at 07:00 Glucose (Glutose) 15 gm Q15M PRN PO DECREASED GLUCOSE; Start 01/09/17 at 07:00 Glucose (Glutose) 22.5 gm Q15M PRN PO DECREASED GLUCOSE; Start 01/09/17 at 07:00 Dextrose (D50w Syringe) 25 ml Q15M PRN IV DECREASED GLUCOSE; Start 01/09/17 at 07:00 Dextrose (D50w Syringe) 50 ml Q15M PRN IV DECREASED GLUCOSE; Start 01/09/17 at 07:00 Glucagon (Glucagen) 1 mg Q15M PRN IM DECREASED GLUCOSE; Start 01/09/17 at 07:00 Glucose (Glutose) 15 gm Q15M PRN BUCCAL DECREASED GLUCOSE; Start 01/09/17 at 07: 00 Pantoprazole (Protonix Tab) 40 mg DAILY@06 PO Last administered on 01/14/17 05: 48; Admin Dose 40 MG; Start 01/10/17 at 06:00 Linezolid (Zyvox) 600 mg BID PO Last administered on 01/14/17 09:18; Admin Dose 600 MG; Start 01/09/17 at 21:00 Hydralazine HCl (Apresoline) 10 mg Q4H PRN IV SBP > 160 Last administered on 12:44; Admin Dose 10 MG; Start 01/10/17 at 08:30 Clonidine (Catapres) 0.1 mg Q6H PRN PO sbp>150 Last administered on 01/13/17 00 :11; Admin Dose 0.1 MG; Start 01/11/17 at 16:00 Nifedipine (Procardia Xl) 60 mg DAILY PO Last administered on 01/14/17 09:19; Admin Dose 60 MG; Start 01/12/17 at 09:00 [facility]ANDA MD[facility] Jan 14, 2017 10:12
--- NOTE | 2017-01-14 10:18 | CONS ---
Date/Time of Note Date/Time of Note DATE: 01/14/17 TIME: 10:16 Consult Date/Type/Reason Admit Date/Time Jan 07, 2017 at 12:34 Initial Consult Date 01/08/17 Type of Consultation: ID Subjective SUBJECTIVE: The patient is stable, no acute events overnight. No fevers, chills, nausea, vomiting. sp I&D of osteo of foot. OBJECTIVE: HEENT: Head is normocephalic. NECK: Supple. HEART: Regular rate. LUNGS: Show diminished breath sounds at the base. ABDOMEN: Soft, nontender to palpation. No rebound or guarding. EXTREMITIES: Negative for clubbing, cyanosis. No edema of left leg. Right foot has dressing, it is clean, dry, and intact. NEUROLOGIC: No change in exam. Objective Vital Signs Date Time Temp Pulse Resp B/P Pulse Ox O2 Delivery O2 Flow Rate FiO2 01/14/17 09:24 69 187/83 01/14/17 08:14 97.8 18 98 01/13/17 20:00 Room Air Intake and Output 01/13/17 01/13/17 01/14/17 15:00 23:00 07:00 Intake Total 1440 ml 200 ml Balance 1440 ml 200 ml Results/Medications Result Diagram: 01/12/17 0602 01/12/17 0602 Results 24 hrs Laboratory Tests Test 01/13/17 12:09 01/13/17 17:34 01/13/17 20:51 01/14/17 02:21 Bedside Glucose 166 173 208 157 Test 01/14/17 07:45 Bedside Glucose 103 Medications Current Medications Metoprolol Succinate (Toprol Xl) 200 mg BID PO Last administered on 01/14/17 09 :18; Admin Dose 200 MG; Start 01/07/17 at 21:00 Ondansetron HCl (Zofran Inj) 4 mg Q6H PRN IV NAUSEA AND/OR VOMITING; Start 01/07 at 14:00 Acetaminophen (Tylenol Tab) 650 mg Q6H PRN PO PAIN LEVEL 1-3 OR FEVER Last administered on 01/12/17 18:37; Admin Dose 650 MG; Start 01/07/17 at 14:00 Acetaminophen (Tylenol Supp) 650 mg Q6H PRN [place] PAIN LEVEL 1-3 OR FEVER; Start 01/07/17 at 14:00 Acetaminophen/ Hydrocodone Bitart ([place] (5/325)) 1 tab Q6H PRN PO MODERATE PAIN LEVEL 4-6; Start 01/07/17 at 14:00 Acetaminophen/ Hydrocodone Bitart ([place] (5/325)) 2 tab Q6H PRN PO SEVERE PAIN LEVEL 7-10; Start 01/07/17 at 14:00 Morphine Sulfate (morphine) 2 mg Q4H PRN IV SEVERE PAIN LEVEL 7-10; Start at 14:00 Docusate Sodium (Colace) 100 mg Q12H PRN PO CONSTIPATION; Start 01/07/17 at 14: 00 Magnesium Hydroxide (Milk Of Mag) 30 ml DAILY PRN PO CONSTIPATION; Start at 14:00 Bisacodyl (Dulcolax Supp) 10 mg DAILY PRN [place] CONSTIPATION; Start 01/07/17 at 14: 00 Heparin Sodium (Porcine) (Heparin (5000 Units/0.5 ml)) 5,000 unit Q12 SC Last administered on 01/14/17 09:37; Admin Dose 5,000 UNIT; Start 01/07/17 at 21:00 Insulin Glargine (Lantus) 10 unit DAILY@20 SC Last administered on 01/13/17 21: 00; Admin Dose 10 UNIT; Start 01/07/17 at 20:00 Miscellaneous Information 1 ea NOTE XX ; Start 01/09/17 at 07:00 Glucose (Glutose) 15 gm Q15M PRN PO DECREASED GLUCOSE; Start 01/09/17 at 07:00 Glucose (Glutose) 22.5 gm Q15M PRN PO DECREASED GLUCOSE; Start 01/09/17 at 07:00 Dextrose (D50w Syringe) 25 ml Q15M PRN IV DECREASED GLUCOSE; Start 01/09/17 at 07:00 Dextrose (D50w Syringe) 50 ml Q15M PRN IV DECREASED GLUCOSE; Start 01/09/17 at 07:00 Glucagon (Glucagen) 1 mg Q15M PRN IM DECREASED GLUCOSE; Start 01/09/17 at 07:00 Glucose (Glutose) 15 gm Q15M PRN BUCCAL DECREASED GLUCOSE; Start 01/09/17 at 07: 00 Pantoprazole (Protonix Tab) 40 mg DAILY@06 PO Last administered on 01/14/17 05: 48; Admin Dose 40 MG; Start 01/10/17 at 06:00 Linezolid (Zyvox) 600 mg BID PO Last administered on 01/14/17 09:18; Admin Dose 600 MG; Start 01/09/17 at 21:00 Hydralazine HCl (Apresoline) 10 mg Q4H PRN IV SBP > 160 Last administered on 12:44; Admin Dose 10 MG; Start 01/10/17 at 08:30 Clonidine (Catapres) 0.1 mg Q6H PRN PO sbp>150 Last administered on 01/13/17 00 :11; Admin Dose 0.1 MG; Start 01/11/17 at 16:00 Nifedipine (Procardia Xl) 60 mg DAILY PO Last administered on 01/14/17 09:19; Admin Dose 60 MG; Start 01/12/17 at 09:00 Lidocaine (Xylocaine 1% (Mdv) 20 ml) 20 ml ONCE SC ; Start 01/14/17 at 10:30; Stop 01/15/17 at 10:29 Assessment/Plan Chief Complaint/Hosp Course ASSESSMENT AND PLAN: 1. Nonoliguric acute kidney injury on top of chronic kidney disease stage IIIB/ IV, with a previous EGFR of around 30 mL per minute. Etiology of acute kidney injury is multifactorial, secondary to hemodynamics, possible sepsis. The patient's renal function appears to be slowly improving. Continue current treatment plan. Supportive care, renally dose all medications, avoid nephrotoxins. mild azotemia of unclear significance. if continues to worsen, will recheck ultrasound and urine studies. all meds dosed ok. repeat labs. 2. Chronic kidney disease, stage IIIB/IV with nephrotic range proteinuria. Etiology is likely secondary to diabetic nephropathy. The patient currently in acute kidney injury as stated above. Continue disease factor modification with good glycemic and blood pressure control. 3. Mineral bone disorder. Continue to monitor calcium and phosphorus levels. Defer phosphate binders. 4. Anemia, with component of iron deficiency. The patient is on IV iron, continue. Continue Epogen. 5. Metabolic acidosis secondary to acute kidney injury. Continue to monitor. 6. Diabetes. Continue current insulin regimen. 7. Sepsis secondary to right foot osteomyelitis. Continue current antibiotic regimen. Follow up with podiatry. The patient is status post incision and drainage. Follow up with infectious disease. 8. Hypertension. Continue current blood pressure regimen. Continue pain control. Problems: CROW JASMINE MD Jan 14, 2017 10:18
[2017-01-14] MEDS ORDERED: LIDOCAINE 1% (MDV) 20 ML INJ SC SCH (10:30)
--- NOTE | 2017-01-14 10:30 | CONS ---
Date/Time of Note Date/Time of Note DATE: 01/14/17 TIME: 10:09 Assessment/Plan Assessment/Plan Chief Complaint/Hosp Course INFECTIOUS DISEASE PROGRESS NOTE TOTAL ABX DAY # => Zyvox * POD #2=> s/p 01/12/17 Operation Performed: 1) Surgical debridement and irrigation right foot open wound including epidermis, dermis, soft tissue and bone;2) Right third metatarsal head resection; 3)Right third toe amputation * Doing well, no new issues, DC planning in process * Per ID colleagues plan is to DC home w/6 weeks ABX Zyvox vs Dapto for acute/ chronic malodorous foot wound * Vanco IV DC'd due to JS * Right foot grew Gamma Strep + Opportunistic Corynebacterium JK = true pathogen biofilm insurance sales producer WOUND CULTURE Final Organism 1 CORYNEBACTER CHANDANAIKEIUM (GRP JK) QUANTITY 2+ C JEIKEIUM Zone Size RX --------- --- * AMPICILLIN R * CEFAZOLIN R * CEFOTAXIME R * CEFUROXIME R * CIPROFLOXACIN R * CLINDAMYCIN R * ERYTHROMYCIN R * PENICILLIN R * VANCOMYCIN S Result Diagram: 01/12/17 0602 01/12/17 0602 Exam GENERAL: Well-nourished, well-developed, middle-aged man in no distress. HEENT: Unremarkable NECK: Supple, trachea midline. CHEST: Rise symmetrical without dyspnea to inspection HEART: pulse RRR ABDOMEN: Soft, EXTREMITIES: With right foot dressing intact. ID ASSESSMENT: 1. Right foot diabetic foot ulcer/cellulitis-> s/p failed outpatient treatment w/gas gangrene, ?infectious myositis, and osteomyelitis per MRI. * POD #2=> s/p 01/12/17 Operation Performed: 1) Surgical debridement and irrigation right foot open wound including epidermis, dermis, soft tissue and bone; 2) Right third metatarsal head resection; 3) Right third toe amputation 2. 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 Peripheral Vascular Disease 4. Systemic inflammatory response syndrome with leukocytosis secondary to #1 = resolving 5. Acute kidney injury / CKD? -> Vanco + Zosyn DC'd Current ABX: Zyvox #4 s/p Vanco IV + Zosyn ID RECOMMENDATIONS/PLAN: 1. Per Dr. Schaffer -- plan is DC home w/HH IV ABX, patient needs PICC Prior to DC home 2. Would DC home on DAPTO high dose 6mg/kg daily and HOLD STATIN during HH IV Rx due to risk of elevated CPK * 6-weeks Zyvox places patient at risk for bone marrow suppression, thrombocytopenia @ 6-weeks; however is an option future . . . Problems: Consultation Date/Type/Reason Admit Date/Time Jan 07, 2017 at 12:34 Initial Consult Date 01/08/17 Type of Consultation: ID Exam/Review of Systems Vital Signs Vitals Vital Signs Date Time Temp Pulse Resp B/P Pulse Ox O2 Delivery O2 Flow Rate FiO2 01/14/17 09:24 69 187/83 01/14/17 08:14 97.8 18 98 01/13/17 20:00 Room Air Intake and Output 01/13/17 01/13/17 01/14/17 15:00 23:00 07:00 Intake Total 1440 ml 200 ml Balance 1440 ml 200 ml Results Result Diagram: 01/12/17 0602 01/12/17 0602 Results 24 hrs Laboratory Tests Test 01/13/17 12:09 01/13/17 17:34 01/13/17 20:51 01/14/17 02:21 Bedside Glucose 166 173 208 157 Test 01/14/17 07:45 Bedside Glucose 103 Medications Medications Current Medications Metoprolol Succinate (Toprol Xl) 200 mg BID PO Last administered on 01/14/17 09 :18; Admin Dose 200 MG; Start 01/07/17 at 21:00 Ondansetron HCl (Zofran Inj) 4 mg Q6H PRN IV NAUSEA AND/OR VOMITING; Start 01/07 at 14:00 Acetaminophen (Tylenol Tab) 650 mg Q6H PRN PO PAIN LEVEL 1-3 OR FEVER Last administered on 01/12/17 18:37; Admin Dose 650 MG; Start 01/07/17 at 14:00 Acetaminophen (Tylenol Supp) 650 mg Q6H PRN [place] PAIN LEVEL 1-3 OR FEVER; Start 01/07/17 at 14:00 Acetaminophen/ Hydrocodone Bitart ([place] (5/325)) 1 tab Q6H PRN PO MODERATE PAIN LEVEL 4-6; Start 01/07/17 at 14:00 Acetaminophen/ Hydrocodone Bitart ([place] (5/325)) 2 tab Q6H PRN PO SEVERE PAIN LEVEL 7-10; Start 01/07/17 at 14:00 Morphine Sulfate (morphine) 2 mg Q4H PRN IV SEVERE PAIN LEVEL 7-10; Start at 14:00 Docusate Sodium (Colace) 100 mg Q12H PRN PO CONSTIPATION; Start 01/07/17 at 14: 00 Magnesium Hydroxide (Milk Of Mag) 30 ml DAILY PRN PO CONSTIPATION; Start at 14:00 Bisacodyl (Dulcolax Supp) 10 mg DAILY PRN [place] CONSTIPATION; Start 01/07/17 at 14: 00 Heparin Sodium (Porcine) (Heparin (5000 Units/0.5 ml)) 5,000 unit Q12 SC Last administered on 01/14/17 09:37; Admin Dose 5,000 UNIT; Start 01/07/17 at 21:00 Insulin Glargine (Lantus) 10 unit DAILY@20 SC Last administered on 01/13/17 21: 00; Admin Dose 10 UNIT; Start 01/07/17 at 20:00 Miscellaneous Information 1 ea NOTE XX ; Start 01/09/17 at 07:00 Glucose (Glutose) 15 gm Q15M PRN PO DECREASED GLUCOSE; Start 01/09/17 at 07:00 Glucose (Glutose) 22.5 gm Q15M PRN PO DECREASED GLUCOSE; Start 01/09/17 at 07:00 Dextrose (D50w Syringe) 25 ml Q15M PRN IV DECREASED GLUCOSE; Start 01/09/17 at 07:00 Dextrose (D50w Syringe) 50 ml Q15M PRN IV DECREASED GLUCOSE; Start 01/09/17 at 07:00 Glucagon (Glucagen) 1 mg Q15M PRN IM DECREASED GLUCOSE; Start 01/09/17 at 07:00 Glucose (Glutose) 15 gm Q15M PRN BUCCAL DECREASED GLUCOSE; Start 01/09/17 at 07: 00 Pantoprazole (Protonix Tab) 40 mg DAILY@06 PO Last administered on 01/14/17 05: 48; Admin Dose 40 MG; Start 01/10/17 at 06:00 Linezolid (Zyvox) 600 mg BID PO Last administered on 01/14/17 09:18; Admin Dose 600 MG; Start 01/09/17 at 21:00 Hydralazine HCl (Apresoline) 10 mg Q4H PRN IV SBP > 160 Last administered on 12:44; Admin Dose 10 MG; Start 01/10/17 at 08:30 Clonidine (Catapres) 0.1 mg Q6H PRN PO sbp>150 Last administered on 01/13/17 00 :11; Admin Dose 0.1 MG; Start 01/11/17 at 16:00 Nifedipine (Procardia Xl) 60 mg DAILY PO Last administered on 01/14/17 09:19; Admin Dose 60 MG; Start 01/12/17 at 09:00 RONALD VASQUEZ NP Jan 14, 2017 10:20
[2017-01-14] MEDS: DAPTOMYCIN 480 MG in SOD CHLORIDE 0.9% 100 ML IVPB SCH ×2 (12:00→13:14)
[2017-01-14] MEDS: hydrALAzine 20 MG INJ IV PRN (12:14)
[2017-01-14 13:04] LABS: ALBUMIN 2.3 g/dl (3.3-4.9); ALBUMIN/GLOBULIN RATIO 0.57; BILIRUBIN,INDIRECT 0.2 mg/dl (0-1.1); BILIRUBIN,TOTAL 0.2 mg/dl (0.2-1.3); CALCIUM 7.8 mg/dl (8.4-10.2); CREATININE 2.77 mg/dl (0.61-1.24); POTASSIUM 4.9 mmol/L (3.5-5.1); TOTAL PROTEIN 6.3 g/dl (6.1-8.1)
[2017-01-14] MEDS: INSULIN GLARGINE [LANtus] 3 ML PEN SC SCH (21:07)
[2017-01-15] MEDS: PANTOPRAZOLE (EC) 40 MG TAB PO SCH (06:16)
[2017-01-15 06:17] VITALS: BP 186/85; PULSE 68
[2017-01-15 06:50] LABS: ADD SCAN DIFF NO; BASOPHILS % 0.3 % (0.0-2.0); EOSINOPHILS # 0.2 10^3/ul (0.0-0.5); EOSINOPHILS % 2.8 % (0.0-7.0); HEMATOCRIT 29.2 % (42.0-52.0); LYMPHOCYTES % 26.1 % (15.0-51.0); MEAN CORPUSCULAR HEMOGLOBIN 26.3 pg (29.0-33.0); MEAN CORPUSCULAR HGB CONC 30.8 g/dl (32.0-37.0); MEAN CORPUSCULAR VOLUME 85.4 fl (82.0-101.0); MEAN PLATELET VOLUME 9.1 fl (7.4-10.4); MONOCYTE # 0.5 10^3/ul (0.3-0.9); MONOCYTES % 6.4 % (0.0-11.0); NEUTROPHIL # 4.9 10^3/ul (1.6-7.5); NEUTROPHILS % 63.9 % (39.0-77.0); PLATELET COUNT 287 10^3/UL (140-415); RED BLOOD COUNT 3.42 10^6/ul (4.70-6.10); RED CELL DISTRIBUTION WIDTH 16.8 % (11.5-14.5); WHITE BLOOD COUNT 7.6 10^3/ul (4.8-10.8)
[2017-01-15 07:03] LABS: CREATININE 2.95 mg/dl (0.61-1.24)
[2017-01-15 07:04] LABS: MAGNESIUM 2.1 mg/dl (1.7-2.5); PHOSPHORUS 4.6 mg/dl (2.5-4.9)
[2017-01-15] MEDS: INSULIN ASPART [NOVOLOG] 3 ML PEN SC SCH ×4 (08:00→20:38)
[2017-01-15] MEDS: NIFEdipine (XL) 60 MG TAB PO SCH (08:12)
[2017-01-15] MEDS: METOPROLOL (XL) 100 MG TAB PO SCH ×2 (08:12→20:23)
[2017-01-15] MEDS: HEPARIN 5,000 UNIT/0.5 ML VIAL SC SCH ×2 (08:18→20:41)
[2017-01-15 11:00] VITALS: BP 103/55; PULSE 65
--- NOTE | 2017-01-15 11:27 | CONS ---
Date/Time of Note Date/Time of Note DATE: 01/15/17 TIME: 11:26 Consult Date/Type/Reason Admit Date/Time Jan 07, 2017 at 12:34 Initial Consult Date 01/08/17 Type of Consultation: neph Subjective SUBJECTIVE: The patient is stable, no acute events overnight. No fevers, chills, nausea, vomiting. sp I&D of osteo of foot. OBJECTIVE: HEENT: Head is normocephalic. NECK: Supple. HEART: Regular rate. LUNGS: Show diminished breath sounds at the base. ABDOMEN: Soft, nontender to palpation. No rebound or guarding. EXTREMITIES: Negative for clubbing, cyanosis. No edema of left leg. Right foot has dressing, it is clean, dry, and intact. NEUROLOGIC: No change in exam. Objective Vital Signs Date Time Temp Pulse Resp B/P Pulse Ox O2 Delivery O2 Flow Rate FiO2 01/15/17 06:17 68 186/85 01/14/17 20:00 Room Air 01/14/17 19:19 98.0 18 98 Intake and Output 01/14/17 01/14/17 01/15/17 15:00 23:00 07:00 Intake Total 1300 ml Balance 1300 ml Results/Medications Result Diagram: 01/15/17 0610 01/15/17 0550 Results 24 hrs Laboratory Tests Test 01/14/17 11:53 01/14/17 12:30 01/14/17 17:22 01/14/17 20:55 Bedside Glucose 129 177 226 H Sodium Level 136 Potassium Level 4.9 Chloride Level 114 H Carbon Dioxide Level 22 Anion Gap 5 L Blood Urea Nitrogen 29 H Creatinine 2.77 H Glucose Level 163 Calcium Level 7.8 L Total Bilirubin 0.2 Direct Bilirubin 0.00 Indirect Bilirubin 0.2 Aspartate Amino Transf (AST/SGOT) 62 H Alanine Aminotransferase (ALT/SGPT) 32 Alkaline Phosphatase 98 Total Protein 6.3 Albumin 2.3 L Globulin 4.00 H Albumin/Globulin Ratio 0.57 Test 01/15/17 02:05 01/15/17 05:50 01/15/17 06:10 01/15/17 07:46 Bedside Glucose 120 86 Sodium Level 140 Potassium Level 4.0 Chloride Level 112 H Carbon Dioxide Level 22 Anion Gap 10 # Blood Urea Nitrogen 31 H Creatinine 2.95 H Glucose Level 78 # Calcium Level 8.0 L Phosphorus Level 4.6 Magnesium Level 2.1 White Blood Count 7.6 Red Blood Count 3.42 L Hemoglobin 9.0 L Hematocrit 29.2 L Mean Corpuscular Volume 85.4 Mean Corpuscular Hemoglobin 26.3 L Mean Corpuscular Hemoglobin Concent 30.8 L Red Cell Distribution Width 16.8 H Platelet Count 287 Mean Platelet Volume 9.1 Neutrophils % 63.9 Lymphocytes % 26.1 Monocytes % 6.4 Eosinophils % 2.8 Basophils % 0.3 Nucleated Red Blood Cells % 0.0 Neutrophils # 4.9 Lymphocytes # 2.0 Monocytes # 0.5 Eosinophils # 0.2 Basophils # 0.0 Nucleated Red Blood Cells # 0.0 Medications Current Medications Metoprolol Succinate (Toprol Xl) 200 mg BID PO Last administered on 01/15/17 08 :12; Admin Dose 200 MG; Start 01/07/17 at 21:00 Ondansetron HCl (Zofran Inj) 4 mg Q6H PRN IV NAUSEA AND/OR VOMITING; Start 01/07 at 14:00 Acetaminophen (Tylenol Tab) 650 mg Q6H PRN PO PAIN LEVEL 1-3 OR FEVER Last administered on 01/12/17 18:37; Admin Dose 650 MG; Start 01/07/17 at 14:00 Acetaminophen (Tylenol Supp) 650 mg Q6H PRN [place] PAIN LEVEL 1-3 OR FEVER; Start 01/07/17 at 14:00 Acetaminophen/ Hydrocodone Bitart ([place] (5/325)) 1 tab Q6H PRN PO MODERATE PAIN LEVEL 4-6; Start 01/07/17 at 14:00 Acetaminophen/ Hydrocodone Bitart ([place] (5/325)) 2 tab Q6H PRN PO SEVERE PAIN LEVEL 7-10; Start 01/07/17 at 14:00 Morphine Sulfate (morphine) 2 mg Q4H PRN IV SEVERE PAIN LEVEL 7-10; Start at 14:00 Docusate Sodium (Colace) 100 mg Q12H PRN PO CONSTIPATION; Start 01/07/17 at 14: 00 Magnesium Hydroxide (Milk Of Mag) 30 ml DAILY PRN PO CONSTIPATION; Start at 14:00 Bisacodyl (Dulcolax Supp) 10 mg DAILY PRN [place] CONSTIPATION; Start 01/07/17 at 14: 00 Heparin Sodium (Porcine) (Heparin (5000 Units/0.5 ml)) 5,000 unit Q12 SC Last administered on 01/15/17 08:18; Admin Dose 5,000 UNIT; Start 01/07/17 at 21:00 Insulin Glargine (Lantus) 10 unit DAILY@20 SC Last administered on 01/14/17 21: 07; Admin Dose 10 UNIT; Start 01/07/17 at 20:00 Miscellaneous Information 1 ea NOTE XX ; Start 01/09/17 at 07:00 Glucose (Glutose) 15 gm Q15M PRN PO DECREASED GLUCOSE; Start 01/09/17 at 07:00 Glucose (Glutose) 22.5 gm Q15M PRN PO DECREASED GLUCOSE; Start 01/09/17 at 07:00 Dextrose (D50w Syringe) 25 ml Q15M PRN IV DECREASED GLUCOSE; Start 01/09/17 at 07:00 Dextrose (D50w Syringe) 50 ml Q15M PRN IV DECREASED GLUCOSE; Start 01/09/17 at 07:00 Glucagon (Glucagen) 1 mg Q15M PRN IM DECREASED GLUCOSE; Start 01/09/17 at 07:00 Glucose (Glutose) 15 gm Q15M PRN BUCCAL DECREASED GLUCOSE; Start 01/09/17 at 07: 00 Pantoprazole (Protonix Tab) 40 mg DAILY@06 PO Last administered on 01/15/17 06: 16; Admin Dose 40 MG; Start 01/10/17 at 06:00 Hydralazine HCl (Apresoline) 10 mg Q4H PRN IV SBP > 160 Last administered on 12:14; Admin Dose 10 MG; Start 01/10/17 at 08:30 Clonidine (Catapres) 0.1 mg Q6H PRN PO sbp>150 Last administered on 01/15/17 06 :16; Admin Dose 0.1 MG; Start 01/11/17 at 16:00 Nifedipine 60 mg 60 mg DAILY PO Last administered on 01/15/17 08:12; Admin Dose 60 MG; Start 01/12/17 at 09:00 Daptomycin/Sodium Chloride (Cubicin/NS) 100 ml @ 200 mls/hr Q24H IVPB Last administered on 01/14/17 13:14; Admin Dose 200 MLS/HR; Start 01/14/17 at 12:00; Stop 02/25/17 at 11:59 Assessment/Plan Chief Complaint/Hosp Course ASSESSMENT AND PLAN: 1. Nonoliguric acute kidney injury on top of chronic kidney disease stage IIIB/ IV, with a previous EGFR of around 30 mL per minute. Etiology of acute kidney injury is multifactorial, secondary to hemodynamics, possible sepsis. The patient's renal function appears to be slowly improving. Continue current treatment plan. Supportive care, renally dose all medications, avoid nephrotoxins. mild azotemia today of no clear significance. if continues to worsen, will recheck ultrasound and urine studies. all meds dosed ok. repeat labs. 2. Chronic kidney disease, stage IIIB/IV with nephrotic range proteinuria. Etiology is likely secondary to diabetic nephropathy. The patient currently in acute kidney injury as stated above. Continue disease factor modification with good glycemic and blood pressure control. 3. Mineral bone disorder. Continue to monitor calcium and phosphorus levels. Defer phosphate binders. 4. Anemia, with component of iron deficiency. The patient is on IV iron, continue. Continue Epogen. 5. Metabolic acidosis secondary to acute kidney injury. Continue to monitor. 6. Diabetes. Continue current insulin regimen. 7. Sepsis secondary to right foot osteomyelitis. Continue current antibiotic regimen. Follow up with podiatry. The patient is status post incision and drainage. Follow up with infectious disease. 8. Hypertension. Continue current blood pressure regimen. Continue pain control. Problems: CROW JASMINE MD Jan 15, 2017 11:27
[2017-01-15] MEDS: DAPTOMYCIN 480 MG in SOD CHLORIDE 0.9% 100 ML IVPB SCH (12:25)
--- NOTE | 2017-01-15 15:11 | RADRPT ---
PROCEDURE: XR Chest. CLINICAL INDICATION: Chest pain, right PICC line placement TECHNIQUE: AP view of the chest was performed. COMPARISON: January 07, 2017 FINDINGS: The right PICC line is noted with the tip in the superior vena cava. This line is ready for use. T he cardiomediastinal silhouette is within normal limits. The lungs are clear. No signs of pleural fl uid or pneumothorax are seen. The osseous structures and soft tissues are unremarkable. IMPRESSION: No evidence for active cardiopulmonary disease. Right PICC line in the superior vena cava, and ready for use. RPTAT: QQ .Shanice Mann MD, MD Date Time Electronically viewed and signed by .Shanice Mann MD, MD on 01/15/2017 15:11 .F/
--- NOTE | 2017-01-15 15:12 | RADRPT ---
PROCEDURE: XR Chest. CLINICAL INDICATION: Chest pain, right PICC line placement TECHNIQUE: AP view of the chest was performed. COMPARISON: January 152016 at 02:47 p.m. FINDINGS: There is a right PICC line with the tip within the superior vena cava in good positioning, and ready for use. The cardiomediastinal silhouette is within normal limits. The lungs are clear. No signs o f pleural fluid or pneumothorax are seen. The osseous structures and soft tissues are unremarkable. IMPRESSION: No evidence for active cardiopulmonary disease. Right PICC line in good positioning within the super ior vena cava, and ready for use. RPTAT: QQ .Shanice Mann MD, Date Time Electronically viewed and signed by .Shanice Mann MD, on 01/15/2017 15:12 .F/
--- NOTE | 2017-01-15 15:59 | CONS ---
Date/Time of Note Date/Time of Note DATE: 01/15/17 TIME: 15:41 Assessment/Plan Assessment/Plan Chief Complaint/Hosp Course INFECTIOUS DISEASE PROGRESS NOTE TOTAL ABX DAY # 6 => DAPTOMYCIN #4 (restarted) s/p Zyvox * POD #3=> s/p 01/12/17 Operation Performed: 1) Surgical debridement and irrigation right foot open wound including epidermis, dermis, soft tissue and bone;2) Right third metatarsal head resection; 3)Right third toe amputation * Doing well, no new issues, DC planning in process * Per ID colleagues plan is to DC home w/6 weeks ABX Zyvox vs Dapto for acute/ chronic malodorous foot wound * Vanco IV + Zosyn DC'd due to JS * I was notified by pharmacy that Brittany had patient on Dapto which was changed to Zyvox due to mildly elevated CPK on 01/11/17 was 369 in setting of JS with elevated serum creatinine of 3.3 => the elevated CPK likely due to acute myositis infection in setting of reduced renal clearance. He is NOT on a statin , and the [place] Guidelines recommend DC Dapto if CPK >1000 + evidence of myopathy OR CPK >2000 without myopathy * Right foot grew Gamma Strep + Opportunistic Corynebacterium JK = true pathogen biofilm interactive producer WOUND CULTURE Final Organism 1 CORYNEBACTER JEIKEIUM (GRP JK) QUANTITY 2+ C JEIKEIUM Zone Size RX --------- --- * AMPICILLIN R * CEFAZOLIN R * CEFOTAXIME R * CEFUROXIME R * CIPROFLOXACIN R * CLINDAMYCIN R * ERYTHROMYCIN R * PENICILLIN R * VANCOMYCIN S Exam GENERAL: Well-nourished, well-developed, middle-aged man in no distress. HEENT: Unremarkable NECK: Supple, trachea midline. CHEST: Rise symmetrical without dyspnea to inspection HEART: pulse RRR ABDOMEN: Soft, EXTREMITIES: With right foot dressing intact. ID ASSESSMENT: 1. Right foot diabetic foot ulcer/cellulitis-> s/p failed outpatient treatment w/gas gangrene, ?infectious myositis, and osteomyelitis per MRI. * POD #3=> s/p 01/12/17 Operation Performed: 1) Surgical debridement and irrigation right foot open wound including epidermis, dermis, soft tissue and bone; 2) Right third metatarsal head resection; 3) Right third toe amputation 2. 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 Peripheral Vascular Disease 4. Systemic inflammatory response syndrome with leukocytosis secondary to #1 = resolving 5. Acute kidney injury / CKD? -> Vanco + Zosyn DC'd Current ABX: Zyvox #4 = TOTAL ABX DAY #6 s/p Vanco IV + Zosyn ID RECOMMENDATIONS/PLAN: 1. Per Dr. Schaffer -- plan is DC home w/HH IV ABX, patient needs PICC Prior to DC home 2. Would DC home on DAPTO high dose 6mg/kg daily and HOLD STATIN during HH IV Rx due to risk of elevated CPK * 6-weeks Zyvox places patient at risk for bone marrow suppression, thrombocytopenia @ 6-weeks; however is an option future * Per ID colleagues plan is to DC home w/6 weeks ABX Zyvox vs Dapto for acute/ chronic malodorous foot wound * ABX HISTORY: Vanco IV + Zosyn DC'd due to JS * I was notified by pharmacy that Brittany had patient on Dapto which was changed to Zyvox due to mildly elevated CPK on 01/11/17 was 369 in setting of JS with elevated serum creatinine of 3.3 => the elevated CPK likely due to acute myositis infection in setting of reduced renal clearance. He is NOT on a statin , and the [place] Guidelines recommend DC Dapto if CPK >1000 + evidence of myopathy OR CPK >2000 without myopathy. * As discussed w/pharmacy => will repeat another CPK today, serum creatinine is still elevated 2.93 => again, elevated CPK is due to acute infectious myositis in setting JS w/reduced renal clearance. REPEAT CPK is 266, S.Creat down to 2.78, CRP 2.4, ESR 108 = WILL WRITE ORDER DC HOME ON DAPTOMYCIN iv DAILY 6MG/KG . FINAL ID ABX HH ORDER WRITTEN ON CASE MANAGEMENT ORDER BELOW: * 1. Daptomycin 6mg/kg IVPB daily via PICC Line = Q 24 hours, next dose due 1200 noon until LAST DOSE on 02/25/2017 at 12 noon. With continued dose per outpatient clinical pharmacy. * -- Baseline KG 80.3 w/current dose Daptomycin 480mg IVPB daily. * -- INDICATION Diabetic foot ulcer with myositis. * 2. Please draw CPK, bun, serum creatinine level Q 10 days on Mon01/25/17; Mon02/04/17; Mon02/13/17; TH01/24/17 === and call lab results into outpatient pharmacist for continued dosing. STOP DAPTOMYCIN FOR CPK >/= 1000. * 3. BASELINE LABS: Serum Creatinine 2.78-3.3 (high) s/p acute kidney injury on Vancomycin IV + Zosyn. Baseline CPK range 266-369, with elevated CPK due to acute infectious myositis and reduced renal clearance. * 4. NO STATIN RX while on Daptomycin ABX Rx. * 5. Daily PICC Line care via [facility] RN protocol - may DC PICC line upon completion of HH ABX. * 6. Wound care per podiatry recommendations as per admitting hospitalist team DC orders upon discharge. * 7. Patient to follow up with wound clinic outpatient status. * PLEASE CONTACT Hospitalist Team, Sudarshan Foley NP vs Dr. Schaffer vs hospitalist team covering provider for questions on DC order and wound care orders. Thank you Will sign off - Thank you for allowing "William Wyatt MD" [facility] to participate in this interesting case. .. . . Problems: Consultation Date/Type/Reason Admit Date/Time Jan 07, 2017 at 12:34 Initial Consult Date 01/08/17 Type of Consultation: ID Exam/Review of Systems Vital Signs Vitals Vital Signs Date Time Temp Pulse Resp B/P Pulse Ox O2 Delivery O2 Flow Rate FiO2 01/15/17 11:00 65 103/55 01/14/17 20:00 Room Air 01/14/17 19:19 98.0 18 98 Intake and Output 01/14/17 01/14/17 01/15/17 15:00 23:00 07:00 Intake Total 1300 ml Balance 1300 ml Results Result Diagram: 01/15/17 0610 01/15/17 0550 Results 24 hrs Laboratory Tests Test 01/14/17 17:22 01/14/17 20:55 01/15/17 02:05 01/15/17 05:50 Bedside Glucose 177 226 H 120 Sodium Level 140 Potassium Level 4.0 Chloride Level 112 H Carbon Dioxide Level 22 Anion Gap 10 # Blood Urea Nitrogen 31 H Creatinine 2.95 H Glucose Level 78 # Calcium Level 8.0 L Phosphorus Level 4.6 Magnesium Level 2.1 Test 01/15/17 06:10 01/15/17 07:46 01/15/17 11:53 White Blood Count 7.6 Red Blood Count 3.42 L Hemoglobin 9.0 L Hematocrit 29.2 L Mean Corpuscular Volume 85.4 Mean Corpuscular Hemoglobin 26.3 L Mean Corpuscular Hemoglobin Concent 30.8 L Red Cell Distribution Width 16.8 H Platelet Count 287 Mean Platelet Volume 9.1 Neutrophils % 63.9 Lymphocytes % 26.1 Monocytes % 6.4 Eosinophils % 2.8 Basophils % 0.3 Nucleated Red Blood Cells % 0.0 Neutrophils # 4.9 Lymphocytes # 2.0 Monocytes # 0.5 Eosinophils # 0.2 Basophils # 0.0 Nucleated Red Blood Cells # 0.0 Bedside Glucose 86 102 Medications Medications Current Medications Metoprolol Succinate (Toprol Xl) 200 mg BID PO Last administered on 01/15/17 08 :12; Admin Dose 200 MG; Start 01/07/17 at 21:00 Ondansetron HCl (Zofran Inj) 4 mg Q6H PRN IV NAUSEA AND/OR VOMITING; Start 01/07 at 14:00 Acetaminophen (Tylenol Tab) 650 mg Q6H PRN PO PAIN LEVEL 1-3 OR FEVER Last administered on 01/12/17 18:37; Admin Dose 650 MG; Start 01/07/17 at 14:00 Acetaminophen (Tylenol Supp) 650 mg Q6H PRN OK PAIN LEVEL 1-3 OR FEVER; Start 01/07/17 at 14:00 Acetaminophen/ Hydrocodone Bitart (Man (5/325)) 1 tab Q6H PRN PO MODERATE PAIN LEVEL 4-6; Start 01/07/17 at 14:00 Acetaminophen/ Hydrocodone Bitart (Man (5/325)) 2 tab Q6H PRN PO SEVERE PAIN LEVEL 7-10; Start 01/07/17 at 14:00 Morphine Sulfate (morphine) 2 mg Q4H PRN IV SEVERE PAIN LEVEL 7-10; Start at 14:00 Docusate Sodium (Colace) 100 mg Q12H PRN PO CONSTIPATION; Start 01/07/17 at 14: 00 Magnesium Hydroxide (Milk Of Mag) 30 ml DAILY PRN PO CONSTIPATION; Start at 14:00 Bisacodyl (Dulcolax Supp) 10 mg DAILY PRN OK CONSTIPATION; Start 01/07/17 at 14: 00 Heparin Sodium (Porcine) (Heparin (5000 Units/0.5 ml)) 5,000 unit Q12 SC Last administered on 01/15/17 08:18; Admin Dose 5,000 UNIT; Start 01/07/17 at 21:00 Insulin Glargine (Lantus) 10 unit DAILY@20 SC Last administered on 01/14/17 21: 07; Admin Dose 10 UNIT; Start 01/07/17 at 20:00 Miscellaneous Information 1 ea NOTE XX ; Start 01/09/17 at 07:00 Glucose (Glutose) 15 gm Q15M PRN PO DECREASED GLUCOSE; Start 01/09/17 at 07:00 Glucose (Glutose) 22.5 gm Q15M PRN PO DECREASED GLUCOSE; Start 01/09/17 at 07:00 Dextrose (D50w Syringe) 25 ml Q15M PRN IV DECREASED GLUCOSE; Start 01/09/17 at 07:00 Dextrose (D50w Syringe) 50 ml Q15M PRN IV DECREASED GLUCOSE; Start 01/09/17 at 07:00 Glucagon (Glucagen) 1 mg Q15M PRN IM DECREASED GLUCOSE; Start 01/09/17 at 07:00 Glucose (Glutose) 15 gm Q15M PRN BUCCAL DECREASED GLUCOSE; Start 01/09/17 at 07: 00 Pantoprazole (Protonix Tab) 40 mg DAILY@06 PO Last administered on 01/15/17 06: 16; Admin Dose 40 MG; Start 01/10/17 at 06:00 Hydralazine HCl (Apresoline) 10 mg Q4H PRN IV SBP > 160 Last administered on 12:14; Admin Dose 10 MG; Start 01/10/17 at 08:30 Clonidine (Catapres) 0.1 mg Q6H PRN PO sbp>150 Last administered on 01/15/17 06 :16; Admin Dose 0.1 MG; Start 01/11/17 at 16:00 Nifedipine 60 mg 60 mg DAILY PO Last administered on 01/15/17 08:12; Admin Dose 60 MG; Start 01/12/17 at 09:00 Daptomycin/Sodium Chloride (Cubicin/NS) 100 ml @ 200 mls/hr Q24H IVPB Last administered on 01/15/17 12:25; Admin Dose 200 MLS/HR; Start 01/14/17 at 12:00; Stop 02/25/17 at 11:59 RONALD VASQUEZ SUSTAINABILITY EXECUTIVE DIRECTOR Jan 15, 2017 15:52
[2017-01-15 16:50] LABS: CREATININE 2.78 mg/dl (0.61-1.24)
[2017-01-15 16:54] LABS: C-REACTIVE PROTEIN 2.4 mg/dl (0.0-0.9)
--- NOTE | 2017-01-15 17:22 | PN ---
DATE: 01/15/2017 PULMONARY PROGRESS NOTE HISTORY: The patient is a 46-year-old [place] male who has a diabetic foot ulcer with cellulitis, status post surgical debridement with right third metatarsal head resection and right third toe ampu tation. He is comfortable with no acute complaints or distress. He was noted to have a slightly in creased creatinine today. PHYSICAL EXAMINATION: GENERAL: Shows him to be a well-developed, well-nourished, in no acute distress. VITAL SIGNS: Pulse 65, respirations 18, blood pressure 103/55, last temperature was 98 degrees. NECK: Shows no acute inflammation. HEART: Regular, without murmurs or gallops. CHEST: Clear. ABDOMEN: Soft, nontender. EXTREMITIES: Showed leg bandaged. NEUROLOGIC: Alert and conversant. LABORATORY DATA: Hemoglobin 9, hematocrit 29.2, white count 7.6, platelets are 287,000. Sodium 140 , potassium 4.0, chloride 112, bicarbonate 22, BUN 31, creatinine 2.95. Glucose is 78, calcium 8.0, phosphate 4.6, magnesium 2.1. ASSESSMENT: 1. Diabetic foot ulcer with cellulitis with gas gangrene, with osteomyelitis with possible infectio us myositis postop day #3 surgical debridement and irrigation of the wound with right third metatars al head resection of right third toe amputation. 2. Diabetes mellitus with neuropathy and microangiopathy. 3. Peripheral arterial disease. 4. Sepsis secondary to above, resolving. 5. Acute kidney injury on chronic kidney disease. PLAN: Recheck labs now and in the morning. Recheck CPK. If renal function is stable, potential di scharge home. Discussed with infectious disease and they are really rearranging antibiotics. The p atient has just had a PICC line placed anticipating home IV antibiotics. Discussed with nursing. Dictated By: COLUMBA KATZ/HILDA Conf#: [id number] DID#: [id number] CC: ELANA MARK MD;*EndCC*
[2017-01-15 20:15] VITALS: BP 182/79; PULSE 67; RESP 16
[2017-01-15] MEDS: INSULIN GLARGINE [LANtus] 3 ML PEN SC SCH (20:31)
[2017-01-15 23:30] VITALS: BP 137/60; PULSE 71; RESP 16
[2017-01-15] MEDS: hydrALAzine 20 MG INJ IV PRN (23:33)
[2017-01-16] MEDS: PANTOPRAZOLE (EC) 40 MG TAB PO SCH (05:10)
[2017-01-16 05:49] LABS: ADD SCAN DIFF NO
[2017-01-16 06:06] LABS: BASOPHILS % 0.1 % (0.0-2.0); EOSINOPHILS # 0.3 10^3/ul (0.0-0.5); EOSINOPHILS % 3.7 % (0.0-7.0); HEMATOCRIT 28.7 % (42.0-52.0); HEMOGLOBIN 8.5 g/dl (14.0-18.0); LYMPHOCYTES # 1.8 10^3/ul (0.8-2.9); LYMPHOCYTES % 26.4 % (15.0-51.0); MEAN CORPUSCULAR HEMOGLOBIN 25.4 pg (29.0-33.0); MEAN CORPUSCULAR HGB CONC 29.6 g/dl (32.0-37.0); MEAN CORPUSCULAR VOLUME 85.9 fl (82.0-101.0); MEAN PLATELET VOLUME 9.1 fl (7.4-10.4); MONOCYTE # 0.4 10^3/ul (0.3-0.9); MONOCYTES % 5.2 % (0.0-11.0); NEUTROPHIL # 4.3 10^3/ul (1.6-7.5); NEUTROPHILS % 64.2 % (39.0-77.0); PLATELET COUNT 242 10^3/UL (140-415); RED BLOOD COUNT 3.34 10^6/ul (4.70-6.10); RED CELL DISTRIBUTION WIDTH 17.2 % (11.5-14.5); WHITE BLOOD COUNT 6.7 10^3/ul (4.8-10.8)
[2017-01-16 06:07] LABS: ALBUMIN 2.1 g/dl (3.3-4.9)
[2017-01-16 06:10] LABS: ALBUMIN/GLOBULIN RATIO 0.55; BILIRUBIN,INDIRECT 0.3 mg/dl (0-1.1); BILIRUBIN,TOTAL 0.3 mg/dl (0.2-1.3); CREATININE 2.83 mg/dl (0.61-1.24); TOTAL PROTEIN 5.9 g/dl (6.1-8.1)
[2017-01-16 06:18] LABS: CK-MB 2.61 ng/ml (0.0-2.4); TROPONIN-I 0.03 ng/ml (0.00-0.12)
[2017-01-16 07:00] VITALS: BP 162/70; PULSE 67; RESP 20
[2017-01-16] MEDS: INSULIN ASPART [NOVOLOG] 3 ML PEN SC SCH ×3 (08:15→17:50)
[2017-01-16] MEDS: NIFEdipine (XL) 60 MG TAB PO SCH (08:31)
[2017-01-16] MEDS: METOPROLOL (XL) 100 MG TAB PO SCH (08:32)
[2017-01-16] MEDS: HEPARIN 5,000 UNIT/0.5 ML VIAL SC SCH (09:07)
--- NOTE | 2017-01-16 09:54 | PN ---
DATE: 01/16/2017 SUBJECTIVE: The patient is stable, no acute events overnight. No fevers, chills, nausea, vomiting. OBJECTIVE: VITAL SIGNS: Blood pressure 137/60, respirations 16, pulse 71, temperature 97.5. HEENT: Head is normocephalic. NECK: Supple. HEART: Regular rate. LUNGS: Show diminished breath sounds at the base. ABDOMEN: Soft, nontender to palpation without rebound or guarding. EXTREMITIES: Negative for clubbing, cyanosis, no edema. DERMATOLOGIC: No rashes. MUSCULOSKELETAL: No joint effusions. NEUROLOGIC: No change in exam. MEDICATIONS: The patient's medications have been reviewed. LABORATORY DATA: Shows a sodium 140, potassium 4.0, chloride 113, BUN 33, creatinine 2.83. White c ount 6.7, hemoglobin 8.5, hematocrit 28.7, platelet count 242. ASSESSMENT AND PLAN: 1. Nonoliguric acute kidney injury on top of chronic kidney disease stage IIIB/IV with previous EGF R around 130 mL per minute. Etiology of acute kidney injury is secondary to hemodynamics. Renal fu nction appears to have improved and stabilized around creatinine 2.8 mg/dL. At this point, continue current treatment plan, supportive care, renally dose all meds, avoid nephrotoxins. 2. Chronic kidney disease, stage IIIB/IV with nephrotic range proteinuria. Etiology is secondary t o diabetic nephropathy. The patient is currently in acute kidney injury as stated above. Continue disease factor modification, good glycemic blood pressure controlled. 3. Mineral bone disorder. Continue to monitor calcium and phosphorus levels. 4. Anemia. Continue to monitor hemoglobin and hematocrit levels. Continue Epogen as needed. 5. Metabolic acidosis secondary to acute kidney injury. Continue to monitor. 6. Diabetes. Continue current insulin regimen. 7. Sepsis secondary to right foot osteomyelitis. The patient is status post incision and drainage with right toe amputation. Continue current treatment plan. Continue wound care, continue IV antib iotics. 8. Peripheral arterial disease. Continue medical management. 9. Hypertension. Continue current blood pressure regimen. Dictated By: MICHELLE QUINTANILLA/HILDA Conf#: [id number] DID#: [id number]
--- NOTE | 2017-01-16 10:50 | PDOCDIS ---
Discharge Instructions CONDITION Patient Condition: Good HOME CARE INSTRUCTIONS: Special Diet: Carb Controlled ACTIVITY: Activity Restrictions: No Restrictions FOLLOW UP/APPOINTMENTS Appointments F/U WITH YOUR PCP IN 1-2 WEEKS AND WITH YOUR HOME HEALTH AGENCY ELANA MARK Jan 16, 2017 10:50
[2017-01-16] MEDS: DAPTOMYCIN 480 MG in SOD CHLORIDE 0.9% 100 ML IVPB SCH (12:26)
--- NOTE | 2017-01-16 14:37 | RADRPT ---
PROCEDURE: Ultrasound guidance for placement of needle in right upper extremity vein. CLINICAL INDICATION: Venous access. TECHNIQUE: Limited sonography of the right upper extremity was performed. Ultrasound images were recorded and stored in the patient's medical record. COMPARISON: None. FINDINGS: The ultrasound images demonstrate a patent right upper extremity vein. The PICC line was inserted b y the PICC line nurse. IMPRESSION: 1. Ultrasound guidance for a needle placement in a right upper extremity vein. 2. The visualized right upper extremity vein is patent. RPTAT: QQ .Lemuel Newby MD, MD Date Time Electronically viewed and signed by .Lemuel Newby MD, MD on 01/16/2017 14:37 .R/
--- NOTE | 2017-01-16 16:56 | PN ---
DATE: 01/16/2017 SUBJECTIVE: Patient is alert, lying comfortably in bed. Denies pain, no fevers. Vital signs stabl e. LABORATORY: WBC 6.7, no shift, no bands. BUN 23, creatinine 2.83. MICROBIOLOGY: Wound culture growing strep and corynebacterium group JK. ANTIMICROBIALS: Daptomycin. PHYSICAL EXAMINATION: GENERAL: Well-developed, middle-aged man who is alert, in no distress. HEENT: Head atraumatic, normocephalic. Sclerae anicteric. Buccal mucosa pink. NECK: Supple. CHEST: Rise symmetrical. Breath sounds clear. HEART: S1, S2. ABDOMEN: Soft, bowel tones present. EXTREMITIES: With right foot dressing intact. ASSESSMENT: 1. Right foot osteomyelitis, status post incision and drainage with toe amputation. 2. Acute renal failure. 3. Diabetes with diabetic neuropathy. PLAN: The patient remains stable on appropriate antimicrobials which we will continue for 6 weeks. Pending discharge planning, PICC line placed. Dictated By: JESUS PAYAN TUNGSTEN TENDER for JONNY MONREAL/HILDA Conf#: [id number] DID#: [id number]
--- NOTE | 2017-01-16 17:13 | PN ---
Date/Time of Note Date/Time of Note DATE: 01/16/17 TIME: 17:10 Assessment/Plan Lines/Catheters IV Catheter Type ([facility] PICC Line [place] in Place (from Nrs): No Assessment/Plan Problems: (1) Postop check (2) Open wound of right foot with complication (3) Diabetic foot ulcer Status: Acute Qualifiers: Diabetic foot ulcer location: midfoot Diabetes mellitus type: type 2 Laterality: right Non-pressure ulcer stage: unspecified non-pressure ulcer stage Qualified Code: E11.621 - Diabetic ulcer of right midfoot associated with type 2 diabetes mellitus, unspecified ulcer stage (4) Diabetes mellitus with neurological manifestations, uncontrolled Status: Acute Assessment/Plan Bandages were removed and changed today. Patient may be discharged home. Follow-up next week at the clinic. Patient to remain nonweightbearing on the right foot. Daily dressing change to be done at home. Santyl ointment to be applied to the open wound on top. Patient is to follow-up on at the amputation prevention center Subjective 24 Hr Interval Summary Postop day 4 status post right third toe amputation with surgical debridement of necrotic open wounds of the right foot. Postop visit. Denies pain and reports no fever, chills, nausea or vomiting. Reports remaining nonweightbearing. Constitutional: improved, no complaints Pain Control: well controlled Exam/Review of Systems Vital Signs Vitals Vital Signs Date Time Temp Pulse Resp B/P Pulse Ox O2 Delivery O2 Flow Rate FiO2 01/16/17 07:00 97.5 67 20 162/70 Room Air 01/14/17 19:19 98 Intake and Output 01/15/17 01/15/17 01/16/17 15:00 23:00 07:00 Intake Total 1200 ml 100 ml Balance 1200 ml 100 ml Exam Free Text/Dictation Patient is in no acute distress. Bandages removed from the right foot. Sutures are intact on the plantar aspect of the right foot. Packing was removed from the dorsal open wound. Dressing was changed. There is no sign of infection and no pus or drainage. No bleeding noted. Nontender to palpation. Imaging and labs reviewed. Results Result Diagram: 01/16/17 0536 01/16/17 0536 CHINMAY ANNE DPM Jan 16, 2017 17:13
[2017-01-16] MEDS ORDERED: COLLAGENASE 30 GM TUBE TOP SCH (18:30)
--- NOTE | 2017-01-17 05:35 | DS ---
DATE OF ADMISSION: 01/07/2017 DATE OF DISCHARGE: 01/16/2017 DISCHARGE DIAGNOSES: 1. Diabetic foot ulcer with cellulitis, gas gangrene, and osteomyelitis status post surgical debrid ement as well as right toe amputation. Discharged with antibiotics per ID. 2. Diabetes with neuropathy and microangiopathy as well as peripheral vascular disease. 3. Sepsis secondary to #1, resolved. 4. Acute on chronic kidney disease. Creatinine now stable. HOSPITAL COURSE: The patient is a 46-year-old male with history of right foot ulcer, ____, as well as diabetes, hypertension, CKD. The patient presented with right foot ulcer with osteomyelitis. Th e patient was seen by Dr. Beltran of podiatry. The patient had a surgical debridement and irrigation of right foot open wound including epidermis, dermis, soft tissue, and bone. The patient also had right 3rd metatarsal head resection and right third toe amputation. The patient was seen by ID and was put on antibiotics. The patient ultimately was felt to be stable for discharge. PICC line was placed. The patient's sepsis did resolve. The patient's renal function was stable. On the day of discharge, the patient's vitals, labs, and physical exam were stable. He had no acute issues. CONDITION ON DISCHARGE: Stable. DISPOSITION: To home with home health. MEDICATIONS: The patient is to continue his usual home medications. The patient was to continue da ptomycin 480 mg IV daily, last dose is to be 02/25/2017. Once again, the patient is to continue rich e medications. FOLLOWUP: The patient is to follow up with PCP in 1 to 2 weeks and with home health. Greater than 30 minutes was spent coordinating discharge of patient. Dictated By: ELANA MARK MD BS/NTS Conf#: [id number] DID#: [id number]
== END 2017-01-16 18:45 | disposition home health service (06) | DRG 854 ==
LOC: E/R 11:05 → MS2 12:34
PROVIDERS: ADMIT Internal Medicine; ATTEND Internal Medicine
PROC: 30233N1 Transfusion of Nonautologous Red Blood Cells into Peripheral Vein, Percutaneous Approach (ICD-10-PCS; 2017-01-07)
PROC: 0Y6T0Z0 Detachment at Right 3rd Toe, Complete, Open Approach (ICD-10-PCS; principal; 2017-01-12 07:30)
PROC: 02HV33Z Insertion of Infusion Device into Superior Vena Cava, Percutaneous Approach (ICD-10-PCS; 2017-01-15)
DX: A41.9 Sepsis, unspecified organism (principal); N17.9 Acute kidney failure, unspecified; E87.2 Acidosis; E11.52 Type 2 diabetes mellitus with diabetic peripheral angiopathy with gangrene; E11.22 Type 2 diabetes mellitus with diabetic chronic kidney disease; N18.3 Chronic kidney disease, stage 3 (moderate); L03.115 Cellulitis of right lower limb; M86.9 Osteomyelitis, unspecified; I10 Essential (primary) hypertension; D50.8 Other iron deficiency anemias; I12.9 Hypertensive chronic kidney disease with stage 1 through stage 4 chronic kidney disease, or unspecified chronic kidney disease; E11.69 Type 2 diabetes mellitus with other specified complication; E11.621 Type 2 diabetes mellitus with foot ulcer; E11.628 Type 2 diabetes mellitus with other skin complications; E11.40 Type 2 diabetes mellitus with diabetic neuropathy, unspecified; D63.8 Anemia in other chronic diseases classified elsewhere; B95.5 Unspecified streptococcus as the cause of diseases classified elsewhere; B96.89 Other specified bacterial agents as the cause of diseases classified elsewhere; L97.519 Non-pressure chronic ulcer of other part of right foot with unspecified severity
CPT/HCPCS: 36415; 36430; 36569; 71010; 73630; 73718; 76937; 80048; 80053; 80061; 81001; 81003; 82043; 82270; 82550; 82553; 82565; 82728; 82962; 83036; 83540; 83605; 83735; 84100; 84155; 84300; 84436; 84443; 84479; 84484; 85014; 85018; 85025; 85610; 85651; 85730; 86140; 86850; 86900; 86901; 86920; 87040; 87070; 87075; 87086; 87102; 88304; 88311; 93005; 96365; 96375; C9113; J0131; J0360; J0690; J0885; J1644; J1815; J2185; J2250; J2405; J2543; J2765; J2916; J3010; J3370; J7030; P9016

== ENCOUNTER 2017-08-07 10:22 | Emergency (ER) | payer OTHER ==
[~2017-08-07] VITALS: Ht 185.4 cm; Wt 84.5 kg
[~2017-08-07 10:22] MED LIST changes: +CLON0.2T5 PO; -LISI20TA11 PO; +METO200T6 PO
[2017-08-07 10:27] VITALS: Ht 185.4 cm; Wt 84.5 kg
--- NOTE | 2017-08-07 11:47 | RADRPT ---
PROCEDURE: XR Chest AP portable CLINICAL INDICATION: Chest wall pain TECHNIQUE: An AP portable radiograph of the chest was submitted. COMPARISON: 01/15/2017 FINDINGS: Support Hardware: The right upper extremity PICC catheter is been removed since the previous study. Cardiovascular: The cardiovascular silhouette appears unremarkable. Lung Trujillo: The lung trujillo appear clear with no nodule, alveolar infiltrate, or interstitial promi nence evident. Pleural Spaces: No pneumothorax or pleural effusion is identified. Osseous Structures: The osseous structures appear intact. Soft Tissues: The soft tissues appear generous. IMPRESSION: 1. Interval removal of the right upper extremity PICC catheter. 2. Otherwise, stable and unremarkable portable chest. Physician Lauryn Date Time Electronically viewed and signed by Physician Lauryn on 08/07/2017 11:47 RH/
[2017-08-07] MEDS ORDERED: ACET500C5 PO (11:59)
[2017-08-07] MEDS ORDERED: TRAM50TA2 PO (11:59)
--- NOTE | 2017-08-07 12:02 | ERD ---
ER Documentation Chief Complaint Chief Complaint pain under left rib x4 days, no injury HPI This 47-year-old male presents with pain in his left rib for the last 4 days. Denies any history of trauma. He thought it may have started while cleaning his car. It is worse with deep breathing and relieved with rest. Denies any flank pain or right-sided pain denies any fevers, cough, shortness of breath, hemoptysis. Denies abdominal pain or vomiting. ROS All systems reviewed and are negative except as per history of present illness. Medications Home Meds Active Scripts Tramadol HCl (Tramadol HCl) 50 Mg Tablet, 50 MG PO Q4 Y for PAIN, #15 TAB Prov:WESLEY MORALES MD 08/07/17 Acetaminophen* (Tylophen*) 500 Mg Capsule, 1 CAP PO Q6H Y for PAIN AND OR ELEVATED TEMP, #15 CAP Prov:WESLEY MORALES MD 08/07/17 Reported Medications Metoprolol Succinate* (Toprol XL*) 200 Mg Tab.sr.24h, 200 MG PO BID, #30 TAB 01/07/17 Clonidine Hcl* (Clonidine Hcl*) 0.2 Mg Tablet, 0.2 MG PO BID Y for ELEVATED BLOOD PRESSURE, TAB 01/07/17 Insulin Glargine* (Lantus*) 100 Unit/Ml Soln, 0 SC QHS, #1 VIAL SLIDING SCALE 09/20/16 Insulin Aspart* (Novolog Insulin Pen*) 100 Unit/Ml Soln, 0 SC .SLIDING SCALE AC , EA AC MEALS 09/20/16 Allergies Allergies: Coded Allergies: No Known Allergy (Unverified , 08/07/17) PMhx/Soc History of Surgery: Yes (metatarsial fixation, 2 screws) Anesthesia Reaction: No Hx Neurological Disorder: No Hx Respiratory Disorders: No Hx Cardiac Disorders: Yes (htn) Hx Psychiatric Problems: No Hx Miscellaneous Medical Probl: Yes (dm; kidney problem) Hx Alcohol Use: Yes (socialy) Hx Substance Use: No Hx Tobacco Use: No Physical Exam Vitals Vital Signs Date Time Temp Pulse Resp B/P Pulse Ox O2 Delivery O2 Flow Rate FiO2 08/07/17 10:27 98.0 59 18 126/74 100 Physical Exam Const: [] Alert, [id number]. Head: Atraumatic Eyes: Normal Conjunctiva ENT: Normal External Ears, Nose and Mouth. Neck: Full range of motion..~ No meningismus. Resp: Clear to auscultation bilaterally slight tenderness in the left T10 rib area. No crepitance. Cardio: Regular rate and rhythm, no murmurs Abd: Soft, non tender, non distended. Normal bowel sounds no tenderness at McBurney's point no James sign and no rebound no CVA tenderness. Skin: No petechiae or rashes Back: No midline or flank tenderness Ext: No cyanosis, or edema Neur: Awake and alert Psych: Normal Mood and Affect Procedures/MDM She presents with left lower rib pain or chest wall pain. Current signs or symptoms do not suggest pulmonary embolism, pneumonia, sepsis, hypoxemia or respiratory distress. There is no signs that is having abdominal pain or flank pain. Chest X-ray 1V Interpreted by me: Soft Tissue: No acute abnormalities Bones: No acute abnormalities Mediastinum/Cardiac Silhouette/Lungs: [No acute abnormalities] depression have normal 1 view chest x-ray Treated with tramadol and Tylenol further observation at home and return precautions. The patient was stable with no new complaints during the ER course. Clinically, there is no current evidence to suggest meningitis, sepsis, acute abdomen, pneumonia, acute coronary syndrome, pulmonary embolism, or any other emergent condition appearing to require further evaluation or hospitalization. The patient should certainly return for any new or worsening symptoms per the aftercare instructions. They should otherwise follow-up with her primary care doctor for reevaluation this week. Departure Diagnosis: Primary Impression: Rib pain Condition: Stable Patient Instructions: Pleurisy, Chest Wall Strain Additional Instructions: Straight normal. Recommend further observation at home, treatment for pain and return for fevers, shortness of breath, blood, new or worsening symptoms. May be strain or pleurisy. WESLEY MORALES MD Aug 07, 2017 12:02
== END 2017-08-07 12:09 | disposition home or self-care (01) ==
LOC: FTE 10:22
DX: R07.81 Pleurodynia (principal); I10 Essential (primary) hypertension; E11.9 Type 2 diabetes mellitus without complications; Z79.4 Long term (current) use of insulin
CPT/HCPCS: 71010; Z7502

== ENCOUNTER 2017-09-06 05:47 | Day surgery (SDC) | payer MEDICARE, OTHER ==
[~2017-09-06] VITALS: Ht 185.4 cm; Wt 87.0 kg
[2017-09-06] VITALS (9 sets, daily range): BP systolic 111–144; BP diastolic 58–70; PULSE 54–59; RESP 14–20; Ht 185.4 cm; Wt 87.0 kg
[~2017-09-06 05:47] MED LIST changes: +ACET500C5 PO; +TRAM50TA2 PO
[2017-09-06] MEDS ORDERED: NIFE60TA7 PO (06:48)
[2017-09-06] MEDS ORDERED: FURO-110 PO (06:48)
[2017-09-06] MEDS ORDERED: CLON0.2T5 PO (06:48)
[2017-09-06] MEDS ORDERED: LISI40TA9 PO (06:50)
[2017-09-06] MEDS ORDERED: POLYMYXIN/BACITRACIN 1L IRRIG ONE (06:58)
[2017-09-06] MEDS ORDERED: PROPOFOL 20 ML ONE (07:40)
[2017-09-06] MEDS ORDERED: CEFAZOLIN 1 GM INJ ONE (07:40)
--- NOTE | 2017-09-06 07:52 | HPN ---
Date/Time of Note Date/Time of Note DATE: 09/06/17 TIME: 07:52 Interval H&P Admission Note Pt. seen H&P reviewed: No system changes CHINMAY ANNE DPM Sep 06, 2017 07:52
[2017-09-06] MEDS ORDERED: BUPIVACAINE 0.5% (SDV) 30 ML INJ ONE (07:53)
[2017-09-06] MEDS ORDERED: LIDOCAINE 2% (SDV) 5 ML INJ ONE (08:18)
--- NOTE | 2017-09-06 09:04 | OPR ---
Date/Time of Note Date/Time of Note DATE: 09/06/17 TIME: 09:04 Operative Report Procedure Date: Sep 06, 2017 Preoperative Diagnosis Right second metatarsal osteomyelitis Chronic open wound of the right foot Postoperative Diagnosis Right second metatarsal partial resection Surgical excision of right foot chronic open wound Operation/Procedure Performed Right second metatarsal partial resection Surgical excision of right foot chronic open wound Surgeon see signature line Site Safety Manager none Anesthesia Type: general Estimated Blood Loss: minimal Transfusion none Specimen right second metatarsal bone and chronic open wound of the right foot Grafts/Implants none Complications none Pt Condition Post Procedure: stable Disposition: PACU Indications This is a pleasant 47-year-old male patient with multiple medical problems including diabetes mellitus, peripheral neuropathy, osteomyelitis of the right foot, chronic open wound who was being treated at the [facility] and developed further worsening of the osteomyelitis of the second metatarsal. MRI showed worsening of the bone infection and the decision was made to do a metatarsal resection and excision of chronic open wound of the right foot. Risks and complications of this type surgery was discussed with patient in great detail. Risks and complications discussed include but are not limited to postoperative infection postoperative pain, chronic disability, need for additional surgical procedures, failure of surgery to correct the problem, deep venous thrombosis, limb loss and loss of life. Patient understands discussion and agrees to procedure. An informed consent was obtained, signed and placed in the chart. No guarantees or warrantees was given or implied as to the outcome of the procedure as and verbal or written form. Procedure Description Patient was seen in the preoperative area and proposed surgery was discussed along with risks and complications. Patient was then taken to the operating room and was placed on the operating table in supine position. Patient was placed under general anesthesia. The right lower extremity was scrubbed, prepped and draped in usual aseptic manner. Plantar open wound was noted on the second MPJ area. A #10 blade was used to make 2 semielliptical incisions encompassing the wound. The dissection was deepened to the periosteal layer with care being taken to protect and preserve vital neurovascular structures. The chronic open wound was excised completely and passed the back table. The second metatarsal was exposed. Power saw was used to resect 50% of the bone distally and bone was removed and passed the back table. The area was flushed with copious ian sterile normal saline. Subcutaneous layer was closed using 3- 0 Vicryl suture and skin was closed using 0 Prolene in simple suture technique. Postoperative injection of 0.5% Marcaine plain was given. Sterile dressing was applied. Patient tolerated procedure and anesthesia well. He was transferred to the recovery room with vital signs stable and vascular status intact to the right foot. Patient will be discharged home after postoperative monitoring. Patient is to remain partial weightbearing on the right foot postop shoes and crutches. Follow up in clinic in 1 week. CHINMAY ANNE DPM Sep 06, 2017 09:04
--- NOTE | 2017-09-06 09:04 | SIPON ---
Date/Time of Note Date/Time of Note DATE: 09/06/17 TIME: 09:02 Operative Report Preoperative Diagnosis Osteomyelitis right second metatarsal Chronic open wound of the right foot Diabetes mellitus Peripheral neuropathy Peripheral vascular disease History of toe amputation of the right foot Postoperative Diagnosis Osteomyelitis right second metatarsal Chronic open wound of the right foot Diabetes mellitus Peripheral neuropathy Peripheral vascular disease History of toe amputation of the right foot Operation/Procedure Performed Surgical excision of chronic open wound of the right foot Second metatarsal ostectomy Surgeon see signature line dental chairside assistant None Anesthesia: general Estimated blood loss: minimal Transfusion Required none Specimen Chronic open wound of the right foot and partial second metatarsal bone Grafts/Implants none Complications none CHINMAY ANNE DPM Sep 06, 2017 09:04
--- NOTE | 2017-09-07 08:13 | RADRPT ---
PROCEDURE: XR Foot. CLINICAL INDICATION: Postop. TECHNIQUE: Three views of the right foot are available for review. COMPARISON: 01/12/2017. FINDINGS: In the interval there has been partial resection of the head of the second metatarsal. The second di git with diffuse proximal interphalangeal joint is once again visualized. Postoperative changes are seen in the third ray as well. IMPRESSION: 1. Interval partial amputation of the head of the second metatarsal. RPTAT: [facility] Physician Seb Date Time Electronically viewed and signed by Eduard Guardado Physician on 09/07/2017 08:13 /
== END 2017-09-07 08:57 | disposition home or self-care (01) ==
LOC: SDS 05:47
PROVIDERS: ATTEND Podiatrist Foot & Ankle Surgery
DX: M86.171 Other acute osteomyelitis, right ankle and foot (principal); I12.9 Hypertensive chronic kidney disease with stage 1 through stage 4 chronic kidney disease, or unspecified chronic kidney disease; N18.9 Chronic kidney disease, unspecified; E11.9 Type 2 diabetes mellitus without complications
CPT/HCPCS: 28173; 73630; 82962; 88304; 88311; J0690; L3260